=== PATIENT | female | born 1990 | race Caucasian/White ===

== ENCOUNTER 2024-04-14 08:25 | Emergency (ER) | payer OTHER, SELFPAY ==
[2024-04-14 08:27] VITALS: BP 118/88; PULSE 99; RESP 16; TEMP 36.4; O2SAT 100; BMI 38.6
--- OUTSIDE RECORDS SUMMARY | 2024-04-14 08:27 | XMS_ITS | Clinical Summary ---
Author Organization [employer] [facility] Address [place], [place] [address] Care Team Providers Care Second Shift Supervisor Name Role Phone Pcp, No Primary Care Provider Unavailabl e Allergies No known active allergies Medications dextroamphetami ne-amphetamine (ADDERALL XR) 20 mg Extended-Releas e capsule Take 20 mg by mouth Active varenicline (CHANTIX DOSEPAK) 0.5 mg (11)- 1 mg (42) tabletIndicatio ns:Tobacco abuse Days 1-3 take 0.5mg once daily; Days 4-7 take 0.5mg twice daily; then increase to 1mg twice daily. Take with meals. 1 Packet 10/18/2018 Active varenicline (CHANTIX) 1 mg tabletIndicatio ns:Tobacco abuse Take 1 mg by mouth 2 times daily with meals. 112 tablet 10/18/2018 Active sertraline (ZOLOFT) 100 mg tablet Take 200 mg by mouth. 12/28/2021 Active Active Problems Problem Noted Date Diagnosed Date Situational depression 10/16/2017 Obesity, Class II, BMI 35-39.9 10/16/2017 Bicornuate uterus 10/16/2017 Overview (10/16/2017): Overview: Not confirmed Attention-deficit hyperactivity disorder 018 Overview (10/16/2017): Overview: Created by Conversion Insomnia 10/16/2017 Overview (10/16/2017): Overview: Created by Conversion Major depression, recurrent 10/16/2017 Overview (10/16/2017): Overview: Created by Conversion Replacement Utility updated for latest IMO load PCOS (polycystic ovarian syndrome) 12/06/2015 Immunizations Name Administration Dates Next Due DTaP 11/08/1995, 4,05/16/1991,05/13/1990,11/29 HIB PRP-OMP (PedvaxHIB) 05/16/1991,05/13/1990 Hepatitis B (Adult) 10/10/2005,11/05/2002,2002 Hepatitis B, Unspecified 10/10/2005,11/05/2002,0 09/30/2002 Hib Conjugate, Unspecified 05/16/1991,05/13/1990 Inactivated Polio Vaccine 11/08/1995,05/16/1991, 05/13/1990,1989 MMR 11/05/2002,05/16/1991 Td (Age >=7 Years) 09/30/2002 Tdap 09/13/2015,04/03/2012 Tdap, Unspecified 11/08/1995, 4,05/16/1991,05/13/1990,11/29 Family History Medical History Relation Name Comments Obesity Brother Obesity Father Stroke Maternal Grandfather Stroke Maternal Grandmother Cervical cancer Mother Heart attack Mother Other Mother morbid obesity Stroke Mother Congenital heart disease Other Cousin Other Paternal Grandfather rare he art condition (protein grew around heart and squeezed it) Cervical cancer Paternal Grandmother had to have hysterectomy Anxiety disorder Sister Depression Sister Obesity Sister Panic attack Sister Relation Name Status Comments Brother Alive Father Alive Maternal Grandfather Maternal Grandmother Mother Alive Other Cousin Paternal Grandfather Paternal Grandmother Alive Sister Alive Social History Tobacco Use Types Packs/Day Years Used Date Smoking Tobacco: Every Day Cigarettes Smokeless Tobacco: Never Tobacco Cessation:Ready to Q uit: Not Asked; Counseling Given: Not Answered Alcohol Use Standard Drinks/Week Comments Yes 7 (1 standard drink = 0.6 oz pur e alcohol) PHQ-2 Answer Date Recorded PHQ-2 Score 0 10/18/2018 Comments No Sex and Gender Information Value Date Recorded Sex Assigned at Not on file Legal Sex Female 8:15 AM SUPERVISOR COOLER SERVICE Gender Identity Not on file Sexual Orientation Not on file Obstetrics History Para Term AB IAB SAB Ectopic Multiple Livin g Live Births 1 Date Outcome GA Total Labor Labor/2nd/3rd Weight Sex Type Anes PTL Criss A1 A5 Name Clin Last Filed Vital Signs Vital Sign Reading Time Taken Comments Blood Pressure 122/81 03/10/2022 11:08 AM SUPERVISOR COOLER SERVICE Pulse 96 03/10/2022 11:08 AM SUPERVISOR COOLER SERVICE Temperature 36.9 C (98.4 F) 03/10/2022 11:08 AM SUPERVISOR COOLER SERVICE Respiratory Rate 16 05/22/2014 1:03 AM CDT Oxygen Saturation 98% 03/10/2022 11: 08 AM SUPERVISOR COOLER SERVICE Inhaled Oxygen Concentration - - Weight 123.7 kg (272 lb 9.6 oz) 023 11:08 AM SUPERVISOR COOLER SERVICE Height 164 cm (5' 4.57) 10/18/2018 11: 20 AM CDT Body Mass Index 45.97 10/18/2018 11:20 AM CDT Plan of Treatment Health Maintenance Due Date Last Done Comments HIV for age 15-65 2004 Hepatitis C screening for age 18-79 09/12/2007 Pap test for age 21-65 2010 BMI (ht and wt on same day) for age 18+ 10/19/2019 10/18/2018, 10/12/2017 Depression screening for age 12+ 10/19/2019 10/18/2018, 10/12/2017 COVID-19 vaccine series ( season) 2023 09/18/2022, 08/26/2021, 07/22/2020, Additional history exists Influenza for age 9-49 11/04/2023 Tetanus booster 09/12/2025 09/13/2015, 03/07, 09/30/2002, Additional history exists Tdap Completed 09/13/2015, 03/07, 11/08/1995, Additional history exists Pneumococcal series for age 6-49 Aged Out No longer eligible based on patient's age to complete this topic Insurance [employer] Care Teams Second Shift Supervisor Relationship Specialty Start Date End Date Pcp, No . PCP - General 10/08/17
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
--- OUTSIDE RECORDS SUMMARY | 2024-04-14 08:27 | XMS_ITS | Encounter Summary ---
Author Organization [facility] Address [address] [place] [address] Care Team Providers Care Nut Tightener Name Role Phone Claudine Woodard MD Primary Care Provider [phone] Encounter Details Date Type Department Care Team (Late st Contact Info) Description 12/06/2015 Scanned History External to External, [place] [address] [facility] Social History Tobacco Use Types Packs/Day Years Used Date Smoking Tobacco: Never Sex and Gender Information Value Date Recorded Sex Assigned at Female 09/18/2022 2:18 PM CDT Gender Identity Non-binary 09/18/2022 2:18 PM CDT Sexual Orientation Lesbian 09/18/2022 2: 18 PM CDT documented as of this encounter Plan of Treatment Upcoming Encounters Date Type Department Care Team (Late st Contact Info) Description 04/22/2024 4:00 PM BRUSH CLEARING LABORER Telemedicine [facility] [address] [place] [address] Claudine Woodard MD [address] [place] [address] documented as of this encounter Visit Diagnoses Not on filedocumented in this encounter Care Teams Nut Tightener Relationship Specialty Start Date End Date Claudine Woodard MD [address] [place] [id number] PCP - General Family Practice 01/06/19 documented as of this encounter
--- OUTSIDE RECORDS SUMMARY | 2024-04-14 08:27 | XMS_ITS | Encounter Summary ---
Author Organization [facility] Address [address] [place] [address] Care Team Providers Care Drawing Tender Name Role Phone Claudine Woodard MD Primary Care Provider [phone] Encounter Details Date Type Department Care Team (Late st Contact Info) Description 12/08/2015 Correspondence None No Primary/Referring, Phy HME EQUIPMENT PLATE PAINTER TICKET Social History Tobacco Use Types Packs/Day Years [...] st Contact Info) Description 04/22/2024 4:00 PM DRESS MARKER Telemedicine [facility] [address] [address] Claudine Woodard MD [address] [place] [id number] documented as of this encounter Visit Diagnoses Not on filedocumented in this encounter Care Teams Drawing Tender Relationship Specialty Start Date End Date Claudine Woodard MD [address] [place] [address] [id number] PCP - General Family Practice 01/06/19 documented as of this encounter
--- OUTSIDE RECORDS SUMMARY | 2024-04-14 08:28 | XMS_ITS | Encounter Summary ---
Author Organization [facility] Address [address] [place] [address] Care Team Providers Care Powertrain Control Systems Engineer Name Role Phone Claudine Woodard MD Primary Care Provider [phone] Encounter Details Date Type Department Care Team (Late st Contact Info) Description 07/13/2015 Scanned History External to External, [place] [address] [facility] [place] Social History Tobacco Use Types Packs/Day Years Used Date Smoking Tobacco: Never Assessed Sex and Gender Information Value Date Recorded Sex Assigned at Female 09/18/2022 2:18 PM CDT Gender Identity Non-binary 09/18/2022 2:18 PM CDT Sexual Orientation Lesbian 09/18/2022 2: 18 PM CDT documented as of this encounter Plan of Treatment Upcoming Encounters Date Type Department Care Team (Late st Contact Info) Description 04/22/2024 4:00 PM OCCUPATIONAL HYGIENIST Telemedicine [facility] [address] [address] Claudine Woodard MD [address] [place] [id number] documented as of this encounter Visit Diagnoses Not on filedocumented in this encounter Care Teams Powertrain Control Systems Engineer Relationship Specialty Start Date End Date Claudine Woodard MD [address] [place] [id number] PCP - General Family Practice 01/06/19 documented as of this encounter
--- OUTSIDE RECORDS SUMMARY | 2024-04-14 08:28 | XMS_ITS | Clinical Summary ---
Author Organization [place] Address [address] [place] [address]. [place] [address] Care Team Providers Care Retail Area Manager Name Role Phone [facility] Primary Care Provide r Allergies No known active allergies Medications Amphetamine-Dextro amphetamine (ADDERALL PO) Active Active Problems Problem Noted Date Diagnosed Date Obesity Overview (08/17/2020): Created by Conversion Attention deficit hyperactivity disorder (ADHD) Overview (08/17/2020): Created by Conversion Insomnia Overview (08/17/2020): Created by Conversion Limb Pain Overview (08/17/2020): Created by Conversion Major Depression, Recurrent Overview (09/03/2020): Created by Conversion Replacement Utility updated for latest IMO load Immunizations Name Administration Dates Next Due DTaP, Unspecified 11/08/1995, 4,05/16/1991,05/13/1990, HIB, Unspecified 05/16/1991,05/13/1990 HepB, Unspecified 10/10/2005,11/05/2002,10/01/19 03 MMR 11/05/2002,05/16/1991 Poliovirus, inactivated (IPV) 11/08/1995, 992,05/13/1990,1989 TDAP (Adacel,Boostrix) 04/03/2012 Td,adult,historic,unspecified 09/30/2002 Social History Tobacco Use Types Packs/Day Years Used Date Smoking Tobacco: Never Assessed Adolescent Education Answer Date Record ed Getting School Help Needed Not on file 12/17 Comments No Sex and Gender Information Value Date Recorded Sex Assigned at Not on file Legal Sex Female 4:33 AM ELECTRICAL AND RADIO MOCK UP MECHANIC Gender Identity Not on file Sexual Orientation Not on file Last Filed Vital Signs Vital Sign Reading Time Taken Comments Blood Pressure 138/90 08/03/2019 5:59 PM CDT Pulse 108 08/03/2019 5:00 PM CDT Temperature 37.3 C (99.1 F) 08/03/2019 3:09 PM CDT Respiratory Rate 15 08/03/2019 5:59 PM CDT Oxygen Saturation 100% 08/03/2019 5:59 PM CDT Inhaled Oxygen Concentration - - Weight - - Height - - Body Mass Index - - Plan of Treatment Not on file Care Teams Retail Area Manager Relationship Specialty Start Date End Date [facility] [address] [place] [address] PCP - General 08/02/22
--- OUTSIDE RECORDS SUMMARY | 2024-04-14 08:28 | XMS_ITS | Clinical Summary ---
[facility] Address [address] [place] [address] Care Team Providers Care Police Shift Commander Name Role Phone Claudine Woodard MD Primary Care Provider [phone] Source Comments You are receiving this document as you are listed as the primary care provider,follow-up provider, or the patient has been referred to you for consultation.This is in compliance with the Medicare andMedicaid EHR Incentive Program,which states Providers who transition their patient to another setting of careor provider of care or refers their patient to another provider of care shouldprovide summary care record for each transition of care or referral. Transerv Allergies Active Allergy Reactions Criticality Noted Date Comments Escitalopram Other, see comments 02/11/20242004-increased risk for suicide Medications Medication Sig Dispensed Refills Start Date End Date Status testosterone cypionate (DEPO-TESTOSTERON E) 100 MG/ML injection Inject 0.5 mL (50 mg) intramuscularly once every week. 08/19/19 23 Active MONOJECT HYPO 18GX1 18G X 1 USE DIRECTED FOR DRAWING UP MEDICATION ONCE A WEEK 08/18/19 23 Active EASY TOUCH HYPODERMIC NEEDLE 25G X 1-1/2 Inject intramuscularly once every week. 08/29/19 23 Active propranolol (INDERAL) 10 MG tabletIndications :Adjustment disorder with anxiety (HRC) Take 1 Tablet (10 mg) by mouth three times a day as needed. 60 Tablet 3 05/07/19 24 Active amphetamine-dextr oamphetamine XR (ADDERALL XR) 30 MG 24 hour release capsuleIndication s:Attention deficit hyperactivity disorder (ADHD), combined type (HRC) Take 1 Capsule (30 mg) by mouth daily for 30 days. Take with 20 mg for total 50 mg daily. 3 of 3 Do not start before March 01, 2024. 30 Capsule 03/01/20 24 Active metFORMIN XR (GLUCOPHAGE XR) 500 MG 24 hour release tabletIndications :Class 3 severe obesity with serious comorbidity and body mass index (BMI) of 50.0 to 59.9 in adult, unspecified obesity type (HRC),PCOS (polycystic ovarian syndrome) (HRC) TAKE 1 TABLET BY MOUTH X 7 DAYS, THEN 2 TABLETS X 7 DAYS, THEN 3 TABLETS X 7 DAYS, THEN 4 TABLETS DAILY 360 Tablet 02/06/20 24 Active busPIRone (BUSPAR) 5 MG tabletIndications :Depression with anxiety (HRC) Take 1 Tablet (5 mg) by mouth two times a day. 180 Tablet 1 02/11/20 24 Active hydrOXYzine HCl (ATARAX) 25 MG tabletIndications :Adjustment disorder with anxiety (HRC) Take 1-2 Tablets (25-50 mg) by mouth three times a day as needed for Anxiety. 60 Tablet 1 02/13/20 24 Active sertraline (ZOLOFT) 100 MG tabletIndications :Adjustment disorder with anxiety (HRC),Recurrent major depressive disorder, in full remission (HRC) Take 2 Tablets (200 mg) by mouth daily. 180 Tablet 3 02/13/20 24 Active amphetamine-dextr oamphetamine XR (ADDERALL XR) 20 MG 24 hour release capsuleIndication s:Attention deficit hyperactivity disorder (ADHD), combined type (HRC) Take 1 Capsule (20 mg) by mouth daily for 30 days. 1 of 3 30 Capsule 03/24/19 25 025 Active amphetamine-dextr oamphetamine XR (ADDERALL XR) 20 MG 24 hour release capsuleIndication s:Attention deficit hyperactivity disorder (ADHD), combined type (HRC) Take 1 Capsule (20 mg) by mouth daily for 30 days. 2 of 3 Do not start before April 23, 2024. 30 Capsule 04/23/19 25 025 Active amphetamine-dextr oamphetamine XR (ADDERALL XR) 20 MG 24 hour release capsuleIndication s:Attention deficit hyperactivity disorder (ADHD), combined type (HRC) Take 1 Capsule (20 mg) by mouth daily for 30 days. 3 of 3 Do not start before May 23, 2024. 30 Capsule 05/24/19 25 025 Active amphetamine-dextr oamphetamine XR (ADDERALL XR) 30 MG 24 hour release capsuleIndication s:Attention deficit hyperactivity disorder (ADHD), combined type (HRC) Take 1 Capsule (30 mg) by mouth daily for 30 days. 1 of 3 Do not start before March 29, 2024. 30 Capsule 03/29/19 25 025 Active amphetamine-dextr oamphetamine XR (ADDERALL XR) 30 MG 24 hour release capsuleIndication s:Attention deficit hyperactivity disorder (ADHD), combined type (HRC) Take 1 Capsule (30 mg) by mouth daily for 30 days. 2 of 3 Do not start before April 26, 2024. 30 Capsule 04/26/19 25 025 Active amphetamine-dextr oamphetamine XR (ADDERALL XR) 30 MG 24 hour release capsuleIndication s:Attention deficit hyperactivity disorder (ADHD), combined type (HRC) Take 1 Capsule (30 mg) by mouth daily for 30 days. 3 of 3 Do not start before May 26, 2024. 30 Capsule 05/27/19 25 025 Active amphetamine-dextr oamphetamine XR (ADDERALL XR) 30 MG 24 hour release capsuleIndication s:Attention deficit hyperactivity disorder (ADHD), combined type (HRC) Take 1 Capsule (30 mg) by mouth daily for 30 days. Take with 20 mg for total 50 mg daily. 2 of 3 Do not start before January 31, 2024. 30 Capsule 01/31/20 24 025 Discontinued amphetamine-dextr oamphetamine XR (ADDERALL XR) 20 MG 24 hour release capsuleIndication s:Attention deficit hyperactivity disorder (ADHD), combined type (HRC) Take 1 Capsule (20 mg) by mouth daily for 30 days. 2 of 3 Do not start before January 10, 2024. 30 Capsule 01/10/20 24 025 Discontinued amphetamine-dextr oamphetamine XR (ADDERALL XR) 20 MG 24 hour release capsuleIndication s:Attention deficit hyperactivity disorder (ADHD), combined type (HRC) Take 1 Capsule (20 mg) by mouth daily for 30 days. 3 of 3 Do not start before February 09, 2024. 30 Capsule 02/09/20 24 025 Discontinued amphetamine-dextr oamphetamine XR (ADDERALL XR) 30 MG 24 hour release capsuleIndication s:Attention deficit hyperactivity disorder (ADHD), combined type (HRC) Take 1 Capsule (30 mg) by mouth daily for 30 days. Take with 20 mg for total 50 mg daily. 1 of 3 30 Capsule 01/08/20 24 025 Discontinued amphetamine-dextr oamphetamine XR (ADDERALL XR) 30 MG 24 hour release capsule Take 2 Capsules (60 mg) by mouth daily. 60 Capsule 02/08/20 24 025 Discontinued Active Problems Problem Noted Date Diagnosed Date Dysmenorrhea 09/18/2022 Menorrhagia with irregular cycle 09/18/2022 Gender dysphoria in adult 09/18/2022 Hyperlipidemia 12/12/2021 Posttraumatic stress disorder 10/06/2019 Class 3 severe obesity with serious comorbidity and body mass index (BMI) of 40.0 to 44.9 in adult 10/06/2019 Overview (10/06/2019): Created by [employer] nicotine containing substance 03/20/2019 Overview (03/20/2019): Not ready to quit at this time. Controlled substance agreement signed 03/20/2019 Overview (03/24/2024): Diagnosis: ADHD Medication: adderall XR 50 mg daily (takes 30 mg + 20 mg daily for total of 50 mg daily) Controlled Substance Agreement reviewed and signed: yes Date agreement signed: 03/20/2019 Refill plan: visit at least every 6 months-- one visit face to face Clinician: Claudine Woodard MD Updated 09/10/2023 Social anxiety disorder 01/10/2019 Attention deficit hyperactivity disorder (ADHD) 10/16/2017 Overview (02/13/2019): Diagnosed by [facility] at age 18. This is confirmed by review of records from [facility]. See scanned into media Major depression, recurrent 10/16/2017 Overview (01/10/2019): H/o suicide attempts. H/o cutting. Bicornuate uterus 12/06/2015 Overview (01/10/2019): Septate uterus PCOS (polycystic ovarian syndrome) 12/06/2015 Resolved Problems Problem Noted Date Diagnosed Date Resolved Date Cervical high risk HPV (angeline n papillomavirus) test positive 10/20/2019 10/12/2023 Overview (10/12/2023): [facility] Review: History: 2019: NILM HPV+ (non 16/18) 2020: ASCUS, HPV- 2022: NILM, HPV- 2023: NILM, HPV- Plan, per ASCCP guidelines: Repeat co-test in 5 years (09/2028) Nexplanon in place 01/10/2019 Overview (01/10/2019): Placed 10/2017. Encounter for care or examin ation of lactating mother 12/08/2015 01/10/2019 Encounter for supervision of normal first in third trimester 12/06/2015 01/10/2019 Normal labor 12/06/2015 12/08/2015 Encounters Date Type Department Care Team Description 03/24/2024 4:00 PM [facility] Telemedicine [address] [address] [place] [address] Claudine Woodard MD Attention deficit hyperactivity disorder (ADHD), combined type (HRC) (Primary Dx); Class 3 severe obesity with serious comorbidity and body mass index (BMI) of 40.0 to 44.9 in adult, unspecified obesity type (HRC); Moderate episode of recurrent major depressive disorder (HRC); PCOS (polycystic ovarian syndrome) (HRC); Hyperlipidemia, unspecified hyperlipidemia type (HRC); Screening, lipid; Screening for diabetes mellitus 02/11/2024 2:30 PM [facility] Telemedicine [facility] [address] [place] [address] Yesy Lambert, MARISEL, DEYA Depression with anxiety (HRC) (Primary Dx); Adjustment disorder with anxiety (HRC); Recurrent major depressive disorder, in full remission (HRC); Social anxiety disorder (HRC) 02/11/2024 Telephone [facility] [address] [place] [address] Claudine Woodard MD Medication Request 02/07/2024 E-Visit [address] [address] [address] Claudine Woodard MD Dx: Attention deficit hyperactivity disorder (ADHD), combined type ([facility]) 02/03/2024 [address] [address] Claudine Woodard MD Refill (metFORMIN XR (GLUCOPHAGE XR) 500 MG 24 hour release tablet [Pharmacy Med Name: METFORMIN ER 500MG 24HR TABS]) from Last 3 Months Immunizations Name Administration Dates Next Due DTaP 11/08/1995, 4,05/16/1991,1990,1989 HepB Adult (Engerix-B, 20+ y rs, 3 dose series) 10/10/2005,11/05/2002,09/30/2002 HepB, Unspecified Formulation 10/10/2005, 003,09/30/2002 Hib (PedvaxHIB) 05/16/1991,05/13/1990 Hib, Unspecified Formulation 05/16/1991,05/13/18 91 IPV (Polio) 11/08/1995, 2,05/13/1990,1989 Influenza IIV4 (Quadrivalent ) 0.5mL ([id number]) 11/13/2019,01/10/2019 MMR 11/05/2002,05/16/1991 Moderna Bivalent 12+ 09/18/2022 Moderna Monovalent Booster 12+ 08/26/2021 PCV20 (Khsrpvt21) 09/18/2022 PPSV23 (Pneumovax) 01/10/2019 Pfizer Monovalent 12+ Purple Top 07/22/2020,04/2 11/2020 Td 09/30/2002 Td (7+ yrs) 09/30/2002 Tdap 09/13/2015, 3,11/08/1995,1993,05/16/1991,05/13/1990,1989 Family History Medical History Relation Name Comments Other Father was [facility] police chief deputy with issues Depression Mother Cori Olivo Both parents suffer from mental illness/unresolved trauma/C-PTSD Mental Disorder Mother Cori Olivo possibly bipolar Obesity Mother Cori Olivo Renal Failure Mother Cori Olivo of yady al failure Stroke Mother Cori Olivo after hospitalizatoin, had clots in many places endometriosis Mother Cori Olivo No Known Problems Brother Agustin Cerebrovascular Disease Maternal Grandmother Thyroid Disorder Paternal Grandmother DVT/PE Sister Luis Alberto clots in legs. Fibromyalgia Sister Luis Alberto Cancer, Breast Negative Family History Relation Name Status Comments Father Alive Mother Cori Olivo Alive of haley l failure Brother Agustin Alive Maternal Grandmother Paternal Grandmother Sister Luis Alberto Alive Social History Tobacco Use Types Packs/Day [...] Orientation Lesbian 09/18/2022 2: 18 PM CDT Last Filed Vital Signs Vital Sign Reading Time Taken Comments Blood Pressure 111/75 12/11/2023 1:03 PM CDT Pulse 96 12/11/2023 1:03 PM CDT Temperature 37 C (98.6 F) 06/16/2021 9:22 AM CDT Respiratory Rate 16 09/14/2018 10:2 1 AM CDT Oxygen Saturation 99% 09/14/2018 10: 21 AM CDT Inhaled Oxygen Concentration - - Weight 118.7 kg (261 lb 9.6 oz) 12/11/2023 1:03 PM CDT Height 166.4 cm (5' 5.5) 09/10/2023 8:45 AM CDT Body Mass Index 42.87 09/10/2023 8:45 AM CDT Plan of Treatment Upcoming Encounters Date Type Department Care Team (Late st Contact Info) Description 04/22/2024 4:00 PM [facility] Telemedicine [facility] [address] [place] [address] Claudine Woodard MD [address] [id number] Health Maintenance Due Date Last Done Comments COVID-19 Vaccine ( season) 2023 09/18/2022, 08/26/2021, 07/22/2020, Additional history exists Influenza (#1) 2023 11/13/2019, 01/10/2019 Adult Preventive Visit 09/09/2025 4, 09/18/2022, 10/06/2019 DTaP/Tdap/Td (7 - Tdap) 09/12/2025 09/13/19 16, 04/03/2012, 09/30/2002, Additional history exists Cervical Cancer Screening 09/09/20282023, 09/18/2022, 11/02/2020, Additional history exists Zoster/Shingles (1 of 2) 09/12/2039 Hib Completed 05/16/1991, 05/03, 05/13/1990, Additional history exists IPV (Polio) Completed 11/08/1995, 05/03, 05/13/1990, Additional history exists HepB Completed 10/10/2005, 10/2005, 11/05/2002, Additional history exists HIV Screening (Preventive Services) Completed 10/06/2019 Pneumococcal Aged Out 09/18/2022, 01/10/2019 No lo nger eligible based on patient's age to complete this topic Hep C Screening (Preventive Services) Completed 04/05/2023 HPV Vaccine Aged Out No longer eligi ble based on patient's age to complete this topic HepA Aged Out No longer eligi ble based on patient's age to complete this topic MCV4 Aged Out No longer eligi ble based on patient's age to complete this topic Procedures Procedure Name Priority Date/Time Associated Diagnosis Comments PAP TEST Routine 09/10/2023 9:58 AM CDT Screening for malignant neoplasm of cervix HEPATITIS C ANTIBODY, WITH REFLEX Routine 04/05/2023 11:40 AM [facility] Need for hepatitis C screening test HIV 1/2 AG/AB 4TH GEN Routine 10/06/2019 1:53 PM CDT Screening for HIV (human immunodeficiency virus) from Last 3 Months or Most Recently Relevant to Health Maintenance Results * PAP Test (09/10/2023 9:58 AM CDT) Case Report Pap Case: [id number] Authorizing Provider: Claudine Woodard MD Collected: 09/10/2023 0958 Ordering Location: [facility] Received: 09/10/2023 1019 First Screen: SANJUANITA CERON Rescreen: Yocasta Fiore Specimen: Pap Test, Routine, Cervix/Endocervix 10/11/2023 3:54 PM CDT [facility] Pap Specimen Adequacy Satisfactory for evaluation, endocervical/pires sformation zone component present. 10/11/2023 3:54 PM CDT [facility] Pap Interpretation (NILM) Negative for intraepithelial lesion or malignancy. 10/11/2023 3:54 PM CDT [facility] Pap Disclaimer The Pap test is a screening test to aid in the detection of cervical and vaginal cancers and their precursor lesions. It is not a diagnostic procedure and should not be used as the sole means of detecting malignancy. Both false-positive and false-negative results may occur. 10/11/2023 3:54 PM CDT [facility] Gross Description The specimen is received in SurePath fixative and properly labeled. 1 Pap-stained SurePath slide is prepared. 10/11/2023 3:54 PM CDT [facility] Embedded Images 3:54 PM CDT [facility] Other Specimen Type ENTIRE ENDOCERVIX / Unknown 09/10/2023 9:58 AM CDT 09/10/2023 10:19 AM CDT Comment:LMP: No LMP recorded . (Menstrual status: Irregular). Claudine Woodard MD LAB PATHOLOGY Performing Organization Address [facility] de Phone Number [facility] [address] [place] [address] * Hepatitis C Antibody, with Reflex (04/05/2023 11:40 AM [facility]) Hepatitis C Antibody Negative (Non Reactive) Negative (Non Reactive) 04/05/2023 4:38 PM [facility] Comment:Antibodies to HCV no t detected. Does not exclude the possiblity of exposure to HCV. Blood Venipuncture / Unknown 04/05/2023 11:40 AM [facility] 04/05/2023 11:40 AM [facility] Claudine Woodard MD LAB_1 Performing Organization Address [facility] Phone Number [facility] [address] [place] [address] * HIV 1/2 Ag/Ab 4th Generation (10/06/2019 1:53 PM CDT) HIV 1/2 Antigen/Antib analy (4th generation) Negative (Non Reactive) Negative (Non Reactive) 10/06/2019 6:36 PM CDT [facility] Comment:HIV-1 p24 Antigen an d HIV-1/HIV-2 Antibody not detected Blood Venipuncture / Unknown 10/06/2019 1:53 PM CDT 10/06/2019 1:53 PM CDT Claudine Woodard MD LAB_1 Performing Organization Address [facility] de Phone Number [facility] [address] [place] [address] from Last 3 Months or Most Recently Relevant to Health Maintenance Advance Directives * Full Code (Latest Code Status on File) Date Activated Date Inactivated Comments 12/06/2015 8:35 AM 12/08/2015 4:52 PM Care Teams Police Shift Commander Relationship Specialty Start Date End Date Claudine Woodard MD [address] [place] [address] PCP - General Family Practice 01/06/19
--- NOTE | 2024-04-14 09:25 | CRLHL7_ITS ---
For Patients: As a result of the Century Cures Act, medical imaging exams and procedure reports are released immediately into your electronic medical record. You may view this report before your referring provider. If you have questions, please contact your health care provider. INDICATION: Varicose veins. TECHNIQUE: Ultrasound venous duplex bilateral lower extremity. Compression venous exam was performed using oneal-scale, color Doppler, and spectral Doppler analysis. COMPARISON: None available. FINDINGS: Deep veins: Sonographic imaging demonstrates the bilateral common femoral, deep femoral, superficial femoral, popliteal, posterior tibial and peroneal veins to be fully compressible with normal color Doppler blood flow. Superficial veins: Visualized portions of the greater saphenous veins are fully compressible. Bilateral calf varicosities are present, without filling defect. IMPRESSION: No evidence of left lower extremity deep venous thrombosis. Bilateral calf venous varicosities without superficial thrombophlebitis. Dictated by Janel Bunn MD @ 04/14/2024 10:20:04 AM (Electronically Signed)
--- NOTE | 2024-04-14 09:26 | ED.GENADULT ---
HPI - General Adult General Chief complaint: Anxiety Stated complaint: blood clot concerns Time Seen by Provider: 04/14/24 09:16 Mode of arrival: wheelchair History of Present Illness HPI narrative: This 33-year-old female comes in reporting bilateral lower extremity pain in her calf region. She does not report any injury event but does states that she has varicose veins. She does not report any chest pain or shortness of breath and arrives here with normal vital signs. She states that she does have anxiety about her health. Related Data Home Medications ?Medication ?Instructions ?Recorded ?Confirmed dextroamphetamine-amphetamine ER 1 cap PO DAILY 05/12/23 04/14/24 30 mg 24hr capsule,extend release metformin 500 mg tablet,extended 2,000 mg PO QDAY 05/12/23 04/14/24 release 24 hr sertraline 100 mg tablet 150 mg PO 05/12/23 05/12/23 Allergies Allergy/AdvReac Type Severity Reaction Status Date / Time No Known Drug Allergies Allergy Verified 05/12/23 09:47 Review of Systems Status of ROS: Reports: 10 or more systems reviewed and unremarkable except as noted in History and below Narrative: Constitutional: No fevers, no weight gain or loss. Eyes: No discharge. No vision changes. HENT: No congestion, no sore throat, no ear pain. Cardiovascular: No chest pain, no palpitations. Respiratory: No shortness of breath, no wheezes, no cough. Gastrointestinal: No abdominal pain, no vomiting, no diarrhea. Genitourinary: No dysuria, no hematuria. Musculoskeletal: Normal range of motion. Bilateral lower extremity pain from varicose veins. Skin: No rashes, no pruritis. Neurological: No dizziness, weakness, sensory change, speech change. Endo/Heme/Allergies: No bruising or bleeding. No polydipsia. Pysch: no suicidality, no insomnia. She reports anxiety symptoms. All other systems reviewed and are negative. Exam Narrative: Exam Narrative: Constitutional: Well-developed, well-nourished, no acute distress. HEENT: Normocephalic, atraumatic. Neck: Normal range of motion. Nontender. Supple. Heart: Regular. No murmurs. Normal rate. Intact distal pulses. Lungs: Clear to auscultation. No chest discomfort. No wheezes, rhonchi, or rales. Abdomen: Normal bowel sounds. Nontender. No rebound tenderness. Genitalia: Deferred. Back: No midline tenderness. Normal range of motion. Extremities: Normal range of motion. No injury. No unilateral swelling of lower extremities. Varicose veins are present but do not appear discolored. Skin: Intact. No rash. Warm. No erythema or pallor. Neurologic: No altered sensation. No weakness. Alert and oriented. Psychiatric: No suicidality. Nursing notes and vitals signs are reviewed. Const: Vital Signs, click to edit/add: Vital Signs - 24 hr 04/14/24 08:27 Temperature 97.6 F Pulse Rate [Pulse Oximeter] 99 Respiratory Rate 16 Blood Pressure [Ri t Upper Arm] 118/88 Pulse Oximetry 100 Oxygen Delivery Me thod Room Air Course Vital Signs Vital signs: Initial Vital Signs Temperature 97.6 F 04/14/24 08:27 Temperature Source Temporal Artery Scan 04/14/24 08:27 Pulse Rate 99 04/14/24 08:27 Respiratory Rate 16 04/14/24 08:27 Blood Pressure 118/88 04/14/24 08:27 Blood Pressure Mean 98 04/14/24 08:27 Blood Pressure Position Sitting 04/14/24 08:27 Pulse Oximetry 100 04/14/24 08:27 Oxygen Delivery Method Room Air 04/14/24 08:27 Vital Signs Temperature 97.6 F 04/14/24 08:27 Pulse Rate 99 04/14/24 08:27 Respiratory Rate 16 04/14/24 08:27 Blood Pressure 118/88 04/14/24 08:27 Pulse Oximetry 100 04/14/24 08:27 Oxygen Delivery Method Room Air 04/14/24 08:27 Temperature 97.6 F 04/14/24 08:27 Pulse Rate 99 04/14/24 08:27 Respiratory Rate 16 04/14/24 08:27 Blood Pressure 118/88 04/14/24 08:27 Pulse Oximetry 100 04/14/24 08:27 Oxygen Delivery Method Room Air 04/14/24 08:27 Medical Decision Making MDM Narrative Medical decision making narrative: This patient comes in with anxiety and concern about pain in her lower extremities related to varicose veins. She is also requesting labs to be drawn because she is concerned about her health. She does arrive here with normal vital signs. Lab results returned with normal findings as does ultrasound of both lower extremities. There is no evidence of blood clot in either the superficial or the deep veins. I advised her to follow-up with surgery clinic if desiring to have varicose veins addressed. Lab Data Labs: Lab Results 04/14/24 Range/Units 09:38 WBC 6.14 (4.50-11.00) K/uL RBC 4.70 (4.00-5.20) m/uL Hgb 14.2 (12.0-16.0) gm/dL Hct 43.4 (33.0-51.0) % MCV 92 (80-100) fL MCH 30 (26-34) pg MCHC 33 (32-36) gm/dL RDW Coeff of Renetta 12.4 (11.5-15.5) % Plt Count 287 (140-440) K/uL Neut % (Auto) 64.8 (42.0-72.0) % Lymph % (Auto) 25.2 (20-44) % Mercer % (Auto) 7.5 (0.0-11.0) % Eos % (Auto) 1.5 (0.0-7.0) % Baso % (Auto) 0.8 (0.0-3.0) % Neut # (Auto) 3.98 (1.7-7.0) K/uL Lymph # (Auto) 1.55 (0.90-2.90) K/uL Mercer # (Auto) 0.50 (0.00-0.90) K/UL Eos # (Auto) 0.09 (0.00-0.50) K/uL Baso # (Auto) 0.05 (0.00-0.30) K/uL Abs Immat Gran (auto) 0.01 (0.00-0.30) K/uL Imm/Tot Granulo (auto) 0.2 % Sodium 140 (135-149) mmol/L Potassium 3.8 (3.6-5.1) mmol/L Chloride 106 (96-114) mmol/L Carbon Dioxide 25 (20-32) mmol/L Anion Gap 9 (7-15) mEq/L BUN 8 (5-24) mg/dL Creatinine 0.6 (0.5-1.5) mg/dL Estimated Creat Clear 114.09 Estimated GFR 121 ml/min Glucose 97 (60-115) mg/dL Calcium 9.4 (8.4-10.6) mg/dL Imaging Data Venous US: Radiologist's impression: No evidence of left lower extremity deep venous thrombosis. Bilateral calf venous varicosities without superficial thrombophlebitis. Discharge Plan Discharge Clinical Impression: Varicose veins of both lower extremities Patient Disposition: Home, Self-Care Condition: Stable Additional Instructions: Use [id number] medicines as needed and directed. Follow up with a clinic to attend to varicose veins if desired. Prescriptions: No Action dextroamphetamine-amphetamine 30 mg capsule,extended release 24hr 1 cap PO DAILY metformin 500 mg tablet extended release 24 hr 2,000 mg PO QDAY sertraline 100 mg tablet 150 mg PO Follow Up/Referrals: Gabriella Mobley PA-C [Primary Care Provider] - Stand Alone Forms: MyHealth Info Instructions
[2024-04-14 09:58] LABS: Basophils Absolute Auto 0.05 K/uL (0.00-0.30); Basophils Percent Auto 0.8 % (0.0-3.0); Eosinophils Absolute Auto 0.09 K/uL (0.00-0.50); Eosinophils Percent Auto 1.5 % (0.0-7.0); Hematocrit 43.4 % (33.0-51.0); Hemoglobin* 14.2 gm/dL (12.0-16.0); Immature Granulocytes Abs Auto 0.01 K/uL (0.00-0.30); Immature Granulocytes Pct Auto 0.2 %; Lymphocytes Absolute Auto 1.55 K/uL (0.90-2.90); Lymphocytes Percent Auto 25.2 % (20-44); Mean Corpuscular HGB Conc 33 gm/dL (32-36); Mean Corpuscular Hemoglobin 30 pg (26-34); Mean Corpuscular Volume 92 fL (80-100); Monocytes Percent Auto 7.5 % (0.0-11.0); Neutrophils Absolute Auto 3.98 K/uL (1.7-7.0); Neutrophils Percent Auto 64.8 % (42.0-72.0); Platelet Count* 287 K/uL (140-440); RDW Coefficient of Variation % 12.4 % (11.5-15.5); White Blood Count* 6.14 K/uL (4.50-11.00)
[2024-04-14 10:05] LABS: Chloride* 106 mmol/L (96-114); Potassium* 3.8 mmol/L (3.6-5.1); Sodium* 140 mmol/L (135-149)
[2024-04-14 10:08] LABS: Anion Gap 9 mEq/L (7-15); Blood Urea Nitrogen* 8 mg/dL (5-24); Calcium* 9.4 mg/dL (8.4-10.6); Carbon Dioxide* 25 mmol/L (20-32); Creatinine* 0.6 mg/dL (0.5-1.5); Est. Creatinine Clearance* 114.09; Estimated Glomerular Filt Rate 121 ml/min; Glucose* 97 mg/dL (60-115)
[2024-04-14 10:15] LABS: Slide Review Reflex No
--- OUTSIDE RECORDS SUMMARY | 2024-04-14 10:15 | XMS_ITS | Encounter Summary ---
Author Organization [facility] Address [address] [place] [address] Care Team Providers Care Out And Out Cigar Maker Hand Name Role Phone Claudine Woodard MD Primary Care Provider [phone] Encounter Details Date Type Department Care Team (Late st Contact Info) Description 07/13/2015 Scanned History External to External, [place] [address] [facility] NOT[facility] Social History Tobacco Use Types Packs/Day [...] st Contact Info) Description 04/22/2024 4:00 PM RESEARCH HYDRAULIC ENGINEER Telemedicine [facility] [address] [address] Claudine Woodard MD [address] [place] [address] documented as of this encounter Visit Diagnoses Not on filedocumented in this encounter Care Teams Out And Out Cigar Maker Hand Relationship Specialty Start Date End Date Claudine Woodard MD [address] [place] [address] PCP - General Family Practice 01/06/19 documented as of this encounter
--- OUTSIDE RECORDS SUMMARY | 2024-04-14 10:15 | XMS_ITS | Clinical Summary ---
Author Organization [facility] Address [address] [place] [address] Care Team Providers Care Party Plan Sales Unit Advisor Name Role Phone Claudine Woodard MD Primary Care Provider [phone] Source Comments You are receiving this document [...] for each transition of care or referral. [employer] Allergies Active Allergy Reactions Criticality Noted Date [...] papillomavirus) test positive 10/20/2019 10/12/2023 Overview (10/12/2023): [facility] Review: History: 2019: NILM HPV+ (non 16/18) [...] Department Care Team Description 03/24/2024 4:00 PM ELECTRON TUBE ASSEMBLER Telemedicine [place] [address] [place] [address] Claudine Woodard MD Attention deficit hyperactivity disorder (ADHD), combined type (HRC) (Primary Dx); Class 3 severe obesity with serious comorbidity and body mass index (BMI) of 40.0 to 44.9 in adult, unspecified obesity type (HRC); Moderate episode of recurrent major depressive disorder (HRC); PCOS (polycystic ovarian syndrome) (HRC); Hyperlipidemia, unspecified hyperlipidemia type (HRC); Screening, lipid; Screening for diabetes mellitus 02/11/2024 2:30 PM ELECTRON TUBE ASSEMBLER Telemedicine [facility] [address] [place] [address] Yesy Lambert, MARISEL, DEYA Depression with anxiety (HRC) (Primary Dx); Adjustment disorder with anxiety (HRC); Recurrent major depressive disorder, in full remission (HRC); Social anxiety disorder (HRC) 02/11/2024 Telephone [facility] [address] [address] Claudine Woodard MD Medication Request 02/07/2024 E-Visit [place] [address] [place] [address] Claudine Woodard MD Dx: Attention deficit hyperactivity disorder (ADHD), combined type ([facility]) 02/03/2024 [address] [address] Claudine Woodard MD Refill (metFORMIN XR (GLUCOPHAGE [...] 11/08/1995, 2,05/13/1990,1989 Influenza IIV4 (Quadrivalent ) 0.5mL (03239) 11/13/2019,01/10/2019 MMR 11/05/2002,05/16/1991 Moderna Bivalent 12+ 09/18/2022 Moderna Monovalent Booster 12+ 08/26/2021 PCV20 ([id number]) 09/18/2022 PPSV23 (Pneumovax) 01/10/2019 Pfizer Monovalent 12+ Purple Top 07/22/2020,04/2 11/2020 Td 09/30/2002 Td (7+ yrs) 09/30/2002 Tdap 09/13/2015, 3,11/08/1995,1993,05/16/1991,05/13/1990,1989 Family History Medical History Relation Name Comments Other Father was [employer] environmental officer with issues Depression Mother Cori Olivo Both [...] Relation Name Status Comments Father Alive Mother Coir Olivo Alive of haley l failure Brother [...] st Contact Info) Description 04/22/2024 4:00 PM ELECTRON TUBE ASSEMBLER Telemedicine [facility] [address] [place] [address] Claudine Woodard MD [address] [place] [phone] Health Maintenance Due Date Last Done Comments [...] ANTIBODY, WITH REFLEX Routine 04/05/2023 11:40 AM ELECTRON TUBE ASSEMBLER Need for hepatitis C screening test HIV 1/2 AG/AB 4TH GEN Routine 10/06/2019 1:53 PM CDT Screening for HIV (human immunodeficiency virus) from Last 3 Months or Most Recently Relevant to Health Maintenance Results * PAP Test (09/10/2023 9:58 AM CDT) Case Report Pap Case: [id number] Authorizing Provider: Claudine Woodard MD Collected: 09/10/2023 0958 Ordering Location: [facility] Received: 09/10/2023 1019 First Screen: SANJUANITA CERON Rescreen: Yocasta Fiore Specimen: Pap Test, Routine, Cervix/Endocervix 10/11/2023 3:54 PM CDT [facility] Pap Specimen Adequacy Satisfactory for evaluation, endocervical/pires sformation zone component present. 10/11/2023 3:54 PM CDT [facility] Pap Interpretation (NILM) Negative for intraepithelial lesion or malignancy. 10/11/2023 3:54 PM CDT [facility] Pap Disclaimer The Pap test is a screening test to aid in the detection of cervical and vaginal cancers and their precursor lesions. It is not a diagnostic procedure and should not be used as the sole means of detecting malignancy. Both false-positive and false-negative results may occur. 10/11/2023 3:54 PM CDT [facility] Gross Description The specimen is received in SurePath fixative and properly labeled. 1 Pap-stained SurePath slide is prepared. 10/11/2023 3:54 PM CDT [facility] Embedded Images 3:54 PM CDT [facility] Other Specimen Type ENTIRE ENDOCERVIX / Unknown 09/10/2023 9:58 AM CDT 09/10/2023 10:19 AM CDT Comment:LMP: No LMP recorded . (Menstrual status: Irregular). Claudine Woodard MD LAB PATHOLOGY Performing Organization Address [facility] de Phone Number [facility] [address] [place] [address] * Hepatitis C Antibody, with Reflex (04/05/2023 11:40 AM ELECTRON TUBE ASSEMBLER) Hepatitis C Antibody Negative (Non Reactive) Negative (Non Reactive) 04/05/2023 4:38 PM ELECTRON TUBE ASSEMBLER [facility] Comment:Antibodies to HCV no t detected. Does not exclude the possiblity of exposure to HCV. Blood Venipuncture / Unknown 04/05/2023 11:40 AM ELECTRON TUBE ASSEMBLER 04/05/2023 11:40 AM ELECTRON TUBE ASSEMBLER Claudine Woodard MD LAB_1 Performing Organization Address [facility] Phone Number [facility] [address] [place] [address] * HIV 1/2 Ag/Ab 4th Generation (10/06/2019 1:53 PM CDT) HIV 1/2 Antigen/Antib analy (4th generation) Negative (Non Reactive) Negative (Non Reactive) 10/06/2019 6:36 PM CDT [facility] Comment:HIV-1 p24 Antigen an d HIV-1/HIV-2 Antibody not detected Blood Venipuncture / Unknown 10/06/2019 1:53 PM CDT 10/06/2019 1:53 PM CDT Claudine Woodard MD LAB_1 Performing Organization Address [facility] de Phone Number [facility] [address] [place] [address] from Last 3 Months or Most Recently Relevant to Health Maintenance Advance Directives * Full Code (Latest Code Status on File) Date Activated Date Inactivated Comments 12/06/2015 8:35 AM 12/08/2015 4:52 PM Care Teams Party Plan Sales Unit Advisor Relationship Specialty Start Date End Date Claudine Woodard MD [address] [place] [address] PCP - General Family Practice 01/06/19
--- OUTSIDE RECORDS SUMMARY | 2024-04-14 10:15 | XMS_ITS | Encounter Summary ---
Author Organization [facility] Address [address] [place] [address] Care Team Providers Care Manager Room Name Role Phone Claudine Woodard MD Primary Care Provider [phone] Reason for Visit * Reason Comments Follow-up ADHD, weight, mental health Encounter Details Date Type Department Care Team (Late st Contact Info) Description 03/24/2024 4:00 PM AUTOMATIC CHIEF Telemedicine [facility] [address] [place] [address] [address] [place] [phone] Claudine Woodard MD [address] [place] [address] [place] [phone] Attention deficit hyperactivity disorder (ADHD), combined type [...] Claudine Woodard MD - 03/24/2024 4:00 PM AUTOMATIC CHIEF Decrease buspirone 5 mg to half tab twice daily for 1 week, then stop. Wait 2 weeks after buspirone (make sure you feel ok), then decrease sertraline from 150 mg daily to100 mg daily. If symptoms are worsening, increase back to 150 mg daily. MATIC CHIEF documented in this encounter Progress Notes * [...] Location of patient: other in parked vehicle MATIC CHIEF documented in this encounter Plan of Treatment Upcoming Encounters Date Type Department Care Team (Late st Contact Info) Description 04/22/2024 4:00 PM AUTOMATIC CHIEF Telemedicine [facility] [address] [place] [address] [address] [place] [phone] Claudien Woodard MD [facility] [address] [place] [phone] Scheduled Orders Name Type Priority Associated Diagnoses [...] mellitus documented in this encounter Care Teams Manager Room Relationship Specialty Start Date End Date Claudine Woodard MD [address] [place] [address] PCP - General Family Practice 01/06/19 documented as of this encounter
--- OUTSIDE RECORDS SUMMARY | 2024-04-14 10:15 | XMS_ITS | Encounter Summary ---
Author Organization [facility] Address [address] [place] [address] Care Team Providers Care Manager Environmental Name Role Phone Claudine Woodard MD Primary Care Provider [phone] Encounter Details Date Type Department Care Team (Late st Contact Info) Description 12/08/2015 Correspondence None No Primary/Referring, Phy HME EQUIPMENT MAP PLOTTER TICKET Social History Tobacco Use Types Packs/Day [...] st Contact Info) Description 04/22/2024 4:00 PM TRANSIT MAN Telemedicine [facility] [address] [address] Claudine Woodard MD [address] [place] [address] documented as of this encounter Visit Diagnoses Not on filedocumented in this encounter Care Teams Manager Environmental Relationship Specialty Start Date End Date Claudine Woodard MD [address] [place] [address] PCP - General Family Practice 01/06/19 documented as of this encounter
--- OUTSIDE RECORDS SUMMARY | 2024-04-14 10:15 | XMS_ITS | Encounter Summary ---
Author Organization [facility] Address [address] [place] [address] Care Team Providers Care Nursery Helper Name Role Phone Claudine Woodard MD Primary Care Provider [phone] Encounter Details Date Type Department Care Team (Late st Contact Info) Description 12/06/2015 Scanned History External to External, [place] [address] [facility] Social History Tobacco Use Types [...] st Contact Info) Description 04/22/2024 4:00 PM SENIOR NET C DEVELOPER Telemedicine [facility] [address] [address] Claudine Woodard MD [address] [place] [address] documented as of this encounter Visit Diagnoses Not on filedocumented in this encounter Care Teams Nursery Helper Relationship Specialty Start Date End Date Claudine Woodard MD [address] [place] [address] [address] PCP - General Family Practice 01/06/19 documented as of this encounter
--- OUTSIDE RECORDS SUMMARY | 2024-04-14 10:15 | XMS_ITS | Clinical Summary ---
Author Organization [facility] [place], [place] [address] Care Team Providers Care Census Clerk Name Role Phone Pcp, No Primary Care [...] on file Legal Sex Female 8:15 AM BRICK SETTER OPERATOR Gender Identity Not on file Sexual Orientation Not on file Obstetrics History Para Term AB IAB SAB Ectopic Multiple Livin g Live Births 1 Date Outcome GA Total Labor Labor/2nd/3rd Weight Sex Type Anes PTL Criss A1 A5 Name Clin Last Filed Vital Signs Vital Sign Reading Time Taken Comments Blood Pressure 122/81 03/10/2022 11:08 AM BRICK SETTER OPERATOR Pulse 96 03/10/2022 11:08 AM BRICK SETTER OPERATOR Temperature 36.9 C (98.4 F) 03/10/2022 11:08 AM BRICK SETTER OPERATOR Respiratory Rate 16 05/22/2014 1:03 AM CDT Oxygen Saturation 98% 03/10/2022 11: 08 AM BRICK SETTER OPERATOR Inhaled Oxygen Concentration - - Weight 123.7 kg (272 lb 9.6 oz) 023 11:08 AM BRICK SETTER OPERATOR Height 164 cm (5' 4.57) 10/18/2018 11: [...] topic Insurance [employer] Care Teams Census Clerk Relationship Specialty Start Date End Date Pcp, No . PCP - General 10/08/17
[2024-04-14 10:42] VITALS: BP 118/88; PULSE 99; RESP 16; TEMP 36.4
== END 2024-04-14 10:43 | disposition home or self-care (01) ==
PROVIDERS: Emergency Provider Emergency Medicine Emergency Medical Services; PCP Physician Assistant Medical
DX: I83.813 Varicose veins of bilateral lower extremities with pain (principal)
CPT/HCPCS: 36415; 80048; 85025; 93970; 99284

== ENCOUNTER 2024-05-03 16:06 | Emergency (ER) | payer SELFPAY ==
--- OUTSIDE RECORDS SUMMARY | 2024-05-03 16:09 | XMS_ITS | Encounter Summary ---
Author Organization [facility] Address [address] [place] [address] Care Team Providers Care Parachute Packer Name Role Phone Claudine Woodard MD Primary Care Provider [phone] Encounter Details Date Type Department Care Team (Late st Contact Info) Description 12/08/2015 Correspondence None No Primary/Referring, Phy HME EQUIPMENT ETHYLENE OXIDE PANELBOARD OPERATOR TICKET Social History Tobacco Use Types Packs/Day Years Used Date Smoking Tobacco: Never Comments No Sex and Gender Information Value Date Recorded Sex Assigned at Female 09/18/2022 2:18 PM CDT Legal Sex Female 4:58 AM CDT Gender Identity Non-binary 09/18/2022 2:18 PM CDT Sexual Orientation Lesbian 09/18/2022 2: 18 PM CDT documented as of this encounter Plan of Treatment Not on file documented as of this encounter Visit Diagnoses Not on filedocumented in this encounter Care Teams Parachute Packer Relationship Specialty Start Date End Date Claudine Woodard MD [facility] [place] [address] PCP - General Family Practice 01/06/19 documented as of this encounter
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
--- OUTSIDE RECORDS SUMMARY | 2024-05-03 16:09 | XMS_ITS | Encounter Summary ---
Author Organization [facility] Address [address] [place] [address] Care Team Providers Care Anthropologist Name Role Phone Claudine Woodard MD Primary Care Provider [phone] Reason for Visit * Reason Comments Follow-up ADHD, weight, mental health Encounter Details Date Type Department Care Team (Late st Contact Info) Description 03/24/2024 4:00 PM TRIPE FINISHER Telemedicine [facility] [address] [place] [address] [address] [place] [phone] Claudine Woodard MD [address] [place] [address] [place] [phone] Attention deficit hyperactivity disorder (ADHD), combined type [...] on file documented as of this encounter Patient Instructions * Patient Instructions* Claudine Woodard MD - 03/24/2024 4:00 PM TRIPE FINISHER Decrease buspirone 5 mg to half tab twice daily for 1 week, then stop. Wait 2 weeks after buspirone (make sure you feel ok), then decrease sertraline from 150 mg daily to100 mg daily. If symptoms are worsening, increase back to 150 mg daily. E FINISHER E FINISHER documented in this encounter Progress Notes * [...] Location of patient: other in parked vehicle E FINISHER documented in this encounter Plan of Treatment Scheduled Orders Name Type Priority Associated Diagnoses [...] mellitus documented in this encounter Care Teams Anthropologist Relationship Specialty Start Date End Date Claudine Woodard MD [address] [place] [address] PCP - General Family Practice 01/06/19 documented as of this encounter
--- OUTSIDE RECORDS SUMMARY | 2024-05-03 16:10 | XMS_ITS | Clinical Summary ---
Author Organization [facility] Address [address] [place] [address]. [place] [address] Care Team Providers Care Second Baker Name Role Phone [facility], [facility] Primary [...] on file Legal Sex Female 4:33 AM ORACLE ENGINEER Gender Identity Not on file Sexual Orientation [...] of Treatment Not on file Care Teams Second Baker Relationship Specialty Start Date End Date [facility], [facility] [address] [address] PCP - General 08/02/22
--- OUTSIDE RECORDS SUMMARY | 2024-05-03 16:10 | XMS_ITS | Clinical Summary ---
Author Organization [facility] Address [address] [place] [address] Care Team Providers Care Terrazzo Finisher Helper Name Role Phone Pcp, No Primary Care [...] on file Legal Sex Female 8:15 AM REGISTERED NURSE BONE MARROW TRANSPLANT Gender Identity Not on file Sexual Orientation Not on file Obstetrics History Para Term AB IAB SAB Ectopic Multiple Livin g Live Births 1 Date Outcome GA Total Labor Labor/2nd/3rd Weight Sex Type Anes PTL Criss A1 A5 Name Clin Last Filed Vital Signs Vital Sign Reading Time Taken Comments Blood Pressure 122/81 03/10/2022 11:08 AM REGISTERED NURSE BONE MARROW TRANSPLANT Pulse 96 03/10/2022 11:08 AM REGISTERED NURSE BONE MARROW TRANSPLANT Temperature 36.9 C (98.4 F) 03/10/2022 11:08 AM REGISTERED NURSE BONE MARROW TRANSPLANT Respiratory Rate 16 05/22/2014 1:03 AM CDT Oxygen Saturation 98% 03/10/2022 11: 08 AM REGISTERED NURSE BONE MARROW TRANSPLANT Inhaled Oxygen Concentration - - Weight 123.7 kg (272 lb 9.6 oz) 023 11:08 AM REGISTERED NURSE BONE MARROW TRANSPLANT Height 164 cm (5' 4.57) 10/18/2018 11: [...] patient's age to complete this topic Insurance [employer] Care Teams Terrazzo Finisher Helper Relationship Specialty Start Date End Date Pcp, No . PCP - General 10/08/17
--- OUTSIDE RECORDS SUMMARY | 2024-05-03 16:10 | XMS_ITS | Clinical Summary ---
[facility] Organization [facility] Address [address] [place] [address] Care Team Providers Care Nut Cracker Name Role Phone Claudine Woodard MD Primary Care Provider [phone] Source Comments You are receiving this document [...] for each transition of care or referral. [facility] Allergies Active Allergy Reactions Criticality Noted Date Comments Escitalopram Other, see comments 02/11/20242004-increased risk for suicide Medications testosterone cypionate (DEPO-TESTOSTER ONE) 100 MG/ML injection Inject 0.5 mL (50 mg) intramuscularly once every week. 023 Active MONOJECT HYPO 18GX1 18G X 1 USE DIRECTED FOR DRAWING UP MEDICATION ONCE A WEEK 023 Active EASY TOUCH HYPODERMIC NEEDLE 25G X 1-/2 Inject intramuscularly once every week. 023 Active propranolol (INDERAL) 10 MG tabletIndicatio ns:Adjustment disorder with anxiety (HRC) Take 1 Tablet (10 mg) by mouth three times a day as needed. 60 Tablet 3 024 Active amphetamine-dex troamphetamine XR (ADDERALL XR) 30 MG 24 hour release capsuleIndicati ons:Attention deficit hyperactivity disorder (ADHD), combined type (HRC) Take 1 Capsule (30 mg) by mouth daily for 30 days. Take with 20 mg for total 50 mg daily. 3 of 3 Do not start before March 01, 2024. 30 Capsule 024 Active metFORMIN XR (GLUCOPHAGE XR) 500 MG 24 hour release tabletIndicatio ns:Class 3 severe obesity with serious comorbidity and body mass index (BMI) of 50.0 to 59.9 in adult, unspecified obesity type (HRC),PCOS (polycystic ovarian syndrome) (HRC) TAKE 1 TABLET BY MOUTH X 7 DAYS, THEN 2 TABLETS X 7 DAYS, THEN 3 TABLETS X 7 DAYS, THEN 4 TABLETS DAILY 360 Tablet 024 Active hydrOXYzine HCl (ATARAX) 25 MG tabletIndicatio ns:Adjustment disorder with anxiety (HRC) Take 1-2 Tablets (25-50 mg) by mouth three times a day as needed for Anxiety. 60 Tablet 1 024 Active amphetamine-dex troamphetamine XR (ADDERALL XR) 20 MG 24 hour release capsuleIndicati ons:Attention deficit hyperactivity disorder (ADHD), combined type (HRC) Take 1 Capsule (20 mg) by mouth daily for 30 days. 1 of 3 30 Capsule 025 Active amphetamine-dex troamphetamine XR (ADDERALL XR) 20 MG 24 hour release capsuleIndicati ons:Attention deficit hyperactivity disorder (ADHD), combined type (HRC) Take 1 Capsule (20 mg) by mouth daily for 30 days. 2 of 3 Do not start before April 23, 2024. 30 Capsule 025 2024 Active amphetamine-dex troamphetamine XR (ADDERALL XR) 20 MG 24 hour release capsuleIndicati ons:Attention deficit hyperactivity disorder (ADHD), combined type (HRC) Take 1 Capsule (20 mg) by mouth daily for 30 days. 3 of 3 Do not start before May 23, 2024. 30 Capsule 025 2024 Active amphetamine-dex troamphetamine XR (ADDERALL XR) 30 MG 24 hour release capsuleIndicati ons:Attention deficit hyperactivity disorder (ADHD), combined type (HRC) Take 1 Capsule (30 mg) by mouth daily for 30 days. 1 of 3 Do not start before March 29, 2024. 30 Capsule 025 Active amphetamine-dex troamphetamine XR (ADDERALL XR) 30 MG 24 hour release capsuleIndicati ons:Attention deficit hyperactivity disorder (ADHD), combined type (HRC) Take 1 Capsule (30 mg) by mouth daily for 30 days. 2 of 3 Do not start before April 26, 2024. 30 Capsule 025 2024 Active amphetamine-dex troamphetamine XR (ADDERALL XR) 30 MG 24 hour release capsuleIndicati ons:Attention deficit hyperactivity disorder (ADHD), combined type (HRC) Take 1 Capsule (30 mg) by mouth daily for 30 days. 3 of 3 Do not start before May 26, 2024. 30 Capsule 025 2024 Active sertraline (ZOLOFT) 100 MG tabletIndicatio ns:Moderate episode of recurrent major depressive disorder (HRC),Adjustmen t disorder with anxiety (HRC) Take 1 Tablet (100 mg) by mouth daily. 90 Tablet 3 025 Active busPIRone (BUSPAR) 5 MG tabletIndicatio ns:Depression with anxiety (HRC) Take 1 Tablet (5 mg) by mouth two times a day. 180 Tablet 1 024 2024 Discontinued sertraline (ZOLOFT) 100 MG tabletIndicatio ns:Adjustment disorder with anxiety (HRC),Recurrent major depressive disorder, in full remission (HRC) Take 2 Tablets (200 mg) by mouth daily. 180 Tablet 3 024 2024 Discontinued(* Med change OR same med OR reorder, new dose/direction s) Active Problems Problem Noted Date Diagnosed Date [...] papillomavirus) test positive 10/20/2019 10/12/2023 Overview (10/12/2023): [facility] Review: History: 2020: NILM HPV+ (non 16/18) 2020: ASCUS, HPV- [...] Encounters Date Type Department Care Team Description 04/22/2024 4:00 PM VAN OWNER OPERATOR Telemedicine [facility] [address] [place] [address] Claudine Woodard MD Moderate episode of recurrent major depressive disorder (HRC) (Primary Dx); Stress (HRC); Adjustment disorder with anxiety (HRC); Recurrent major depressive disorder, in full remission (HRC) 03/24/2024 4:00 PM VAN OWNER OPERATOR Telemedicine [address] [place] [address] Claudine Woodard MD Attention deficit hyperactivity disorder (ADHD), combined type (HRC) (Primary Dx); Class 3 severe obesity with serious comorbidity and body mass index (BMI) of 40.0 to 44.9 in adult, unspecified obesity type (HRC); Moderate episode of recurrent major depressive disorder (HRC); PCOS (polycystic ovarian syndrome) (HRC); Hyperlipidemia, unspecified hyperlipidemia type (HRC); Screening, lipid; Screening for diabetes mellitus 02/11/2024 2:30 PM VAN OWNER OPERATOR Telemedicine [address] [address] Yesy Lambert APRN, CAR LUBRICATOR Depression with anxiety (HRC) (Primary Dx); Adjustment disorder with anxiety (HRC); Recurrent major depressive disorder, in full remission (HRC); Social anxiety disorder (HRC) 02/11/[address] [address] Claudine Woodard MD Medication Request 02/07/2024 E-Visit [address] [address] Claudine Woodard MD Dx: Attention deficit hyperactivity disorder (ADHD), combined type (HRC) 02/03/[address] [address] Claudine Woodard MD Refill (metFORMIN XR (GLUCOPHAGE XR) 500 MG 24 hour release tablet [Pharmacy Med Name: METFORMIN ER 500MG 24HR TABS]) from Last 3 Months Immunizations Immunization Administration Dates Next Due DTaP 11/08/1995, 4,05/16/1991,1990,1989 HepB Adult (Engerix-B, 20+ y rs, 3 dose series) 10/10/2005,11/05/2002,09/30/2002 HepB, Unspecified Formulation 10/10/2005, 003,09/30/2002 Hib (PedvaxHIB) 05/16/1991,05/13/1990 Hib, Unspecified Formulation 05/16/1991,05/13/18 91 IPV (Polio) 11/08/1995, 2,05/13/1990,1989 Influenza IIV4 (Quadrivalent ) 0.5mL (64059) 11/13/2019,01/10/2019 MMR 11/05/2002,05/16/1991 Moderna Bivalent 12+ 09/18/2022 Moderna Monovalent Booster 12+ 08/26/2021 PCV20 ([id number]) 09/18/2022 PPSV23 (Pneumovax) 01/10/2019 Pfizer Monovalent 12+ Purple Top 07/22/2020,04/2 11/2020 Td 09/30/2002 Td (7+ yrs) 09/30/2002 Tdap 09/13/2015, 3,11/08/1995,1993,05/16/1991,05/13/1990,1989 Family History Medical History Relation Name Comments Other Father was [facility] police manager with issues Depression Mother Cori Olivo Both [...] file Not on file Not on file Last Filed Vital Signs [...] 09/10/2023 8:45 AM CDT Plan of Treatment Health Maintenance Due Date Last Done Comments COVID-19 Vaccine ( season) 2023 09/18/2022, 08/26/2021, 07/22/2020, Additional history exists Influenza (#1) 2023 11/13/2019, 01/10/2019 Adult Preventive Visit 09/09/2025 , 09/18/2022, 10/06/2019 DTaP/Tdap/Td (8 - Tdap) 09/12/2025 09/13/19 16, 04/03/2012, 09/30/2002, [...] on patient's age to complete this topic Meningococcal B Aged Out No longer el igible based on patient's age to complete this topic Procedures Procedure Name Priority Date/Time Associated Diagnosis Comments PAP TEST Routine 09/10/2023 9:58 AM CDT Screening for malignant neoplasm of cervix HEPATITIS C ANTIBODY, WITH REFLEX Routine 04/05/2023 11:40 AM VAN OWNER OPERATOR Need for hepatitis C screening test HIV 1/2 AG/AB 4TH GEN Routine 10/06/2019 1:53 PM CDT Screening for HIV (human immunodeficiency virus) from Last 3 Months or Most Recently Relevant to Health Maintenance Results * PAP Test (09/10/2023 9:58 AM CDT) Case Report Pap Case: [id number] Authorizing Provider: Claudine Woodard MD Collected: 09/10/2023 0958 Ordering Location: [facility] Received: 09/10/2023 1019 First Screen: SANJUANITA CERON Rescreen: Yocasta Fiore Specimen: Pap Test, Routine, Cervix/Endocervix 10/11/2023 3:54 PM CDT [facility] Pap Specimen Adequacy Satisfactory for evaluation, endocervical/pires sformation zone component present. 10/11/2023 3:54 PM CDT [facility] Pap Interpretation (NILM) Negative for intraepithelial lesion or malignancy. 10/11/2023 3:54 PM CDT [facility] at 1554 CDT Pap Disclaimer The Pap test is a screening test to aid in the detection of cervical and vaginal cancers and their precursor lesions. It is not a diagnostic procedure and should not be used as the sole means of detecting malignancy. Both false-positive and false-negative results may occur. 10/11/2023 3:54 PM CDT [facility] Gross Description The specimen is received in SurePath fixative and properly labeled. 1 Pap-stained SurePath slide is prepared. 10/11/2023 3:54 PM CDT [facility] Embedded Images 3:54 PM CDT [facility] Other Specimen Type ENTIRE ENDOCERVIX / Unknown 09/10/2023 9:58 AM CDT 09/10/2023 10:19 AM CDT Comment:LMP: No LMP recorded . (Menstrual status: Irregular). Claudine Woodard MD LAB PATHOLOGY Final Resul t [facility] [address] * Hepatitis C Antibody, with Reflex (04/05/2023 11:40 AM VAN OWNER OPERATOR) Hepatitis C Antibody Negative (Non Reactive) Negative (Non Reactive) 04/05/2023 4:38 PM VAN OWNER OPERATOR [facility] Comment:Antibodies to HCV no t detected. Does not exclude the possiblity of exposure to HCV. Blood Venipuncture / Unknown 04/05/2023 11:40 AM VAN OWNER OPERATOR 04/05/2023 11:40 AM VAN OWNER OPERATOR us Claudine Woodard MD LAB_1 Final Resul t Performing Organization Address [facility] Co de Phone Number [facility] [address] [place] [address] * HIV 1/2 Ag/Ab 4th Generation (10/06/2019 1:53 PM CDT) HIV 1/2 Antigen/Antib analy (4th generation) Negative (Non Reactive) Negative (Non Reactive) 10/06/2019 6:36 PM CDT [facility] Comment:HIV-1 p24 Antigen an d HIV-1/HIV-2 Antibody not detected Blood Venipuncture / Unknown 10/06/2019 1:53 PM CDT 10/06/2019 1:53 PM CDT us Claudine Woodard MD LAB_1 Final Resul t Performing Organization Address [facility] de Phone Number [facility] [address] from Last 3 Months or Most Recently Relevant to Health Maintenance Insurance SELF INSURED [employer] SELF INSURED Julianna OLIVER Advance Directives * Full Code (Latest Code Status on File) Date Activated Date Inactivated Comments 12/06/2015 8:35 AM 12/08/2015 4:52 PM Care Teams Nut Cracker Relationship Specialty Start Date End Date Claudine Woodard MD [address] [place] [address] PCP - General Family Practice 01/06/19
--- OUTSIDE RECORDS SUMMARY | 2024-05-03 16:10 | XMS_ITS | Encounter Summary ---
Author Organization [facility] Address [address] [place] [address] Care Team Providers Care Tile Layer Supervisor Name Role Phone Claudine Woodard MD Primary Care Provider [phone] Encounter Details Date Type Department Care Team (Late st Contact Info) Description 07/13/2015 Scanned History External to External, [place] [address] [facility]-PROCEDURE NOTES Social History Tobacco Use Types Packs/Day Years Used Date Smoking Tobacco: Never Assessed Comments Unknown Sex and Gender Information Value Date Recorded Sex Assigned at Female 09/18/2022 2:18 PM CDT Legal Sex Female 4:58 AM CDT Gender Identity Non-binary 09/18/2022 2:18 PM CDT Sexual Orientation Lesbian 09/18/2022 2: 18 PM CDT documented as of this encounter Plan of Treatment Not on file documented as of this encounter Visit Diagnoses Not on filedocumented in this encounter Care Teams Tile Layer Supervisor Relationship Specialty Start Date End Date Claudine Woodard MD [facility] [place] [address] PCP - General Family Practice 01/06/19 documented as of this encounter
[2024-05-03 16:24] VITALS: BP 118/80; PULSE 110; RESP 18; TEMP 36.6; O2SAT 99; BMI 38.8
--- NOTE | 2024-05-03 16:41 | ED.GENADULT ---
HPI - General Adult General Chief complaint: Unspecified Complaint, Adult Stated complaint: Potential Poisoning and cancer screening Time Seen by Provider: 05/03/24 16:16 History of Present Illness HPI narrative: pt getting divorce, ex is a math genius and bragging about substances that are heat tolerant that causes colon cancer and is using it on pt. today got rid of all the food in the house. needs to make sure that her and her daughter don't have cancer and being poisoned. asked maintenance to check if their water was tampered with today. 33-year-old woman presenting to the emergency department Related Data Home Medications ?Medication ?Instructions ?Recorded ?Confirmed dextroamphetamine-amphetamine ER 1 cap PO DAILY 05/12/23 05/03/24 30 mg 24hr capsule,extend release metformin 500 mg tablet,extended 2,000 mg PO QDAY 05/12/23 05/03/24 release 24 hr sertraline 100 mg tablet 150 mg PO 05/12/23 05/12/23 Allergies Allergy/AdvReac Type Severity Reaction Status Date / Time No Known Drug Allergies Allergy Verified 05/12/23 09:47 PFSH PFSH Social History Smoking Status: Smoker, status unknown Non-prescribed substance use: denies use Exam Const: Vital Signs, click to edit/add: Vital Signs - 24 hr 05/03/24 16:24 Temperature 97.8 F Pulse Rate [Pulse Oximeter] 110 H Respiratory Rate 18 Blood Pressure [Ri ght Upper Arm] 118/80 Pulse Oximetry 99 Oxygen Delivery Me thod Room Air Course Vital Signs Vital signs: Initial Vital Signs Temperature 97.8 F 05/03/24 16:24 Temperature Source Temporal Artery Scan 05/03/24 16:24 Pulse Rate 110 H 05/03/24 16:24 Respiratory Rate 18 05/03/24 16:24 Blood Pressure 118/80 05/03/24 16:24 Blood Pressure Mean 92 05/03/24 16:24 Blood Pressure Position Sitting 05/03/24 16:24 Pulse Oximetry 99 05/03/24 16:24 Oxygen Delivery Method Room Air 05/03/24 16:24 Vital Signs Temperature 97.8 F 05/03/24 16:24 Pulse Rate 110 H 05/03/24 16:24 Respiratory Rate 18 05/03/24 16:24 Blood Pressure 118/80 05/03/24 16:24 Pulse Oximetry 99 05/03/24 16:24 Oxygen Delivery Method Room Air 05/03/24 16:24 Temperature 97.8 F 05/03/24 16:24 Pulse Rate 110 H 05/03/24 16:24 Respiratory Rate 18 05/03/24 16:24 Blood Pressure 118/80 05/03/24 16:24 Pulse Oximetry 99 05/03/24 16:24 Oxygen Delivery Method Room Air 05/03/24 16:24 Discharge Plan Discharge Prescriptions: No Action dextroamphetamine-amphetamine 30 mg capsule,extended release 24hr 1 cap PO DAILY metformin 500 mg tablet extended release 24 hr 2,000 mg PO QDAY sertraline 100 mg tablet 150 mg PO Follow Up/Referrals: Gabriella Mobley PA-C [Primary Care Provider] -
--- OUTSIDE RECORDS SUMMARY | 2024-05-03 18:47 | XMS_ITS | Encounter Summary ---
Author Organization [facility] Address [address] [place] [address] Care Team Providers Care Hotel Or Motel Cleaning Supervisor Name Role Phone Claudine Woodard MD Primary Care Provider [phone] Encounter Details Date Type Department Care Team (Late st Contact Info) Description 12/06/2015 Scanned History External to External, [place] [address] [facility]- RECORDS Social History Tobacco Use Types Packs/Day [...] on filedocumented in this encounter Care Teams Hotel Or Motel Cleaning Supervisor Relationship Specialty Start Date End Date Claudine Woodard MD [facility] [place] [address] PCP - General Family Practice 01/06/19 documented as of this encounter
--- OUTSIDE RECORDS SUMMARY | 2024-05-03 18:47 | XMS_ITS | Clinical Summary ---
Author Organization [facility] Address [address] [place] [address]. [place] [address] Care Team Providers Care Mobile Mechanic Name Role Phone [facility] [place] Primary [...] on file Legal Sex Female 4:33 AM METAL FINISH INSPECTOR Gender Identity Not on file Sexual Orientation [...] of Treatment Not on file Care Teams Mobile Mechanic Relationship Specialty Start Date End Date [facility] [address] [place] [address] PCP - General 08/02/22
--- OUTSIDE RECORDS SUMMARY | 2024-05-03 18:47 | XMS_ITS | Clinical Summary ---
Author Organization [facility] Address [address] [place] [address] Care Team Providers Care Geological Technician Name Role Phone Pcp, No Primary Care [...] on file Legal Sex Female 8:15 AM ENGLISH LANGUAGE ARTS TEACHER Gender Identity Not on file Sexual Orientation Not on file Obstetrics History Para Term AB IAB SAB Ectopic Multiple Livin g Live Births 1 Date Outcome GA Total Labor Labor/2nd/3rd Weight Sex Type Anes PTL Criss A1 A5 Name Clin Last Filed Vital Signs Vital Sign Reading Time Taken Comments Blood Pressure 122/81 03/10/2022 11:08 AM ENGLISH LANGUAGE ARTS TEACHER Pulse 96 03/10/2022 11:08 AM ENGLISH LANGUAGE ARTS TEACHER Temperature 36.9 C (98.4 F) 03/10/2022 11:08 AM ENGLISH LANGUAGE ARTS TEACHER Respiratory Rate 16 05/22/2014 1:03 AM CDT Oxygen Saturation 98% 03/10/2022 11: 08 AM ENGLISH LANGUAGE ARTS TEACHER Inhaled Oxygen Concentration - - Weight 123.7 kg (272 lb 9.6 oz) 023 11:08 AM ENGLISH LANGUAGE ARTS TEACHER Height 164 cm (5' 4.57) 10/18/2018 11: [...] Insurance [employer] Care Teams Geological Technician Relationship Specialty Start Date End Date Pcp, No . PCP - General 10/08/17
--- OUTSIDE RECORDS SUMMARY | 2024-05-03 18:47 | XMS_ITS | Encounter Summary ---
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
--- OUTSIDE RECORDS SUMMARY | 2024-05-03 18:47 | XMS_ITS | Clinical Summary ---
Author Organization [facility] Address [address] [place] [address] Care Team Providers Care Rn Radiation Name Role Phone Claudine Woodard MD Primary Care Provider [phone] Source Comments You are receiving this document [...] for each transition of care or referral. [employer] Allergies Active Allergy Reactions Criticality Noted Date [...] positive 10/20/2019 10/12/2023 Overview (10/12/2023): [facility] Review: History: 2020: NILM HPV+ (non [...] Department Care Team Description 04/22/2024 4:00 PM FISH FRYER Telemedicine [facility] [address] [place] [address] Claudine Woodard MD Moderate episode of recurrent major depressive disorder (HRC) (Primary Dx); Stress (HRC); Adjustment disorder with anxiety (HRC); Recurrent major depressive disorder, in full remission (HRC) 03/24/2024 4:00 PM FISH FRYER Telemedicine [address] [place] [address] Claudine Woodard MD Attention deficit hyperactivity disorder (ADHD), combined type (HRC) (Primary Dx); Class 3 severe obesity with serious comorbidity and body mass index (BMI) of 40.0 to 44.9 in adult, unspecified obesity type (HRC); Moderate episode of recurrent major depressive disorder (HRC); PCOS (polycystic ovarian syndrome) (HRC); Hyperlipidemia, unspecified hyperlipidemia type (HRC); Screening, lipid; Screening for diabetes mellitus 02/11/2024 2:30 PM FISH FRYER Telemedicine [address] [address] Yesy Lambert APRN, FOOD TRADES ASSISTANTS Depression with anxiety (HRC) (Primary Dx); Adjustment disorder with anxiety (HRC); Recurrent major depressive disorder, in full remission (HRC); Social anxiety disorder (HRC) 02/11/[address] [address] Claudine Woodard MD Medication Request 02/07/2024 E-Visit [address] [address] Claudine Woodard MD Dx: Attention deficit hyperactivity disorder (ADHD), combined type (HRC) 02/03/[address] [address] Claudine Woodard MD Refill (metFORMIN XR (GLUCOPHAGE [...] 11/08/1995, 2,05/13/1990,1989 Influenza IIV4 (Quadrivalent ) 0.5mL (64371) 11/13/2019,01/10/2019 MMR 11/05/2002,05/16/1991 Moderna Bivalent 12+ 09/18/2022 Moderna Monovalent Booster 12+ 08/26/2021 PCV20 ([id number]) 09/18/2022 PPSV23 (Pneumovax) 01/10/2019 Pfizer Monovalent 12+ Purple Top 07/22/2020,04/2 11/2020 Td 09/30/2002 Td (7+ yrs) 09/30/2002 Tdap 09/13/2015, 3,11/08/1995,1993,05/16/1991,05/13/1990,1989 Family History Medical History Relation Name Comments Other Father was [facility] public safety police with issues Depression Mother Cori Olivo Both [...] ANTIBODY, WITH REFLEX Routine 04/05/2023 11:40 AM FISH FRYER Need for hepatitis C screening test HIV 1/2 AG/AB 4TH GEN Routine 10/06/2019 1:53 PM CDT Screening for HIV (human immunodeficiency virus) from Last 3 Months or Most Recently Relevant to Health Maintenance Results * PAP Test (09/10/2023 9:58 AM CDT) Case Report Pap Case: [id number] Authorizing Provider: Claudine Woodard MD Collected: 09/10/2023 0958 Ordering Location: [facility] Received: 09/10/2023 1019 First Screen: SANJUANITA CERON Rescreen: Yocasta Fiore Specimen: Pap Test, Routine, Cervix/Endocervix 10/11/2023 3:54 PM CDT [facility] Pap Specimen Adequacy Satisfactory for evaluation, endocervical/pires sformation zone component present. 10/11/2023 3:54 PM CDT [facility] Pap Interpretation (NILM) Negative for intraepithelial lesion or malignancy. 10/11/2023 3:54 PM CDT [facility] at 1554 CDT Pap Disclaimer The Pap test is a screening test to aid in the detection of cervical and vaginal cancers and their precursor lesions. It is not a diagnostic procedure and should not be used as the sole means of detecting malignancy. Both false-positive and false-negative results may occur. 10/11/2023 3:54 PM CDT [facility] Gross Description The specimen is received in SurePath fixative and properly labeled. 1 Pap-stained SurePath slide is prepared. 10/11/2023 3:54 PM CDT [facility] Embedded Images 3:54 PM CDT [facility] Other Specimen Type ENTIRE ENDOCERVIX / Unknown 09/10/2023 9:58 AM CDT 09/10/2023 10:19 AM CDT Comment:LMP: No LMP recorded . (Menstrual status: Irregular). Claudine Woodard MD LAB PATHOLOGY Final Resul t [facility] [address] * Hepatitis C Antibody, with Reflex (04/05/2023 11:40 AM FISH FRYER) Hepatitis C Antibody Negative (Non Reactive) Negative (Non Reactive) 04/05/2023 4:38 PM FISH FRYER [facility] Comment:Antibodies to HCV no t detected. Does not exclude the possiblity of exposure to HCV. Blood Venipuncture / Unknown 04/05/2023 11:40 AM FISH FRYER 04/05/2023 11:40 AM FISH FRYER us Claudine Woodard MD LAB_1 Final Resul t Performing Organization Address [facility] Co de Phone Number [facility] [address] [place] [address] * HIV 1/2 Ag/Ab 4th Generation (10/06/2019 1:53 PM CDT) HIV 1/2 Antigen/Antib analy (4th generation) Negative (Non Reactive) Negative (Non Reactive) 10/06/2019 6:36 PM CDT [facility] Comment:HIV-1 p24 Antigen an d HIV-1/HIV-2 Antibody not detected Blood Venipuncture / Unknown 10/06/2019 1:53 PM CDT 10/06/2019 1:53 PM CDT us Claudine Woodard MD LAB_1 Final Resul t Performing Organization Address [facility] de Phone Number [facility] [address] from Last 3 Months or Most Recently Relevant to Health Maintenance Insurance SELF INSURED HP SELF INSURED Julianna OLIVER Advance Directives * Full Code (Latest Code Status on File) Date Activated Date Inactivated Comments 12/06/2015 8:35 AM 12/08/2015 4:52 PM Care Teams Rn Radiation Relationship Specialty Start Date End Date Claudine Woodard MD [address] [place] [address] PCP - General Family Practice 01/06/19
--- OUTSIDE RECORDS SUMMARY | 2024-05-03 18:47 | XMS_ITS | Encounter Summary ---
Author Organization [facility] Address [address] [place] [address] Care Team Providers Care Cloth Shrinking Machine Operator Name Role Phone Claudine Woodard MD Primary Care Provider [phone] Reason for Visit * Reason Comments Follow-up ADHD, weight, mental health Encounter Details Date Type Department Care Team (Late st Contact Info) Description 03/24/2024 4:00 PM ROUSTABOUT Telemedicine [facility] [address] [place] [address] [place] [id number] Claudine Woodard MD [address] [place] [address] [place] [id number] Attention deficit hyperactivity disorder (ADHD), combined type [...] Claudine Woodard MD - 03/24/2024 4:00 PM ROUSTABOUT Decrease buspirone 5 mg to half tab twice daily for 1 week, then stop. Wait 2 weeks after buspirone (make sure you feel ok), then decrease sertraline from 150 mg daily to100 mg daily. If symptoms are worsening, increase back to 150 mg daily. TABOUT TABOUT documented in this encounter Progress Notes * [...] Location of patient: other in parked vehicle TABOUT documented in this encounter Plan of Treatment [...] mellitus documented in this encounter Care Teams Cloth Shrinking Machine Operator Relationship Specialty Start Date End Date Claudine Woodard MD [address] [place] [address] PCP - General Family Practice 01/06/19 documented as of this encounter
--- OUTSIDE RECORDS SUMMARY | 2024-05-03 18:47 | XMS_ITS | Encounter Summary ---
Author Organization [facility] Address [address] [place] [address] Care Team Providers Care Rehabilitation Inspector Name Role Phone Claudine Woodard MD Primary Care Provider [phone] Reason for Visit * Reason Comments Follow-up Mental health Encounter Details Date Type Department Care Team (Late st Contact Info) Description 04/22/2024 4:00 PM TAPPER HAND Telemedicine [facility] [address] [place] [address] [place] [phone] Claudine Woodard MD [address] [place] [address] [place] [phone] Moderate episode of recurrent major depressive disorder [...] on sertraline to 50 mg daily. Encouraged Fergus to start therapy as soon as reasonable. - sertraline (ZOLOFT) 100 MG tablet; Take 1 Tablet (100 mg) by mouth daily. Follow up: Quick Schedule Follow Up Visits Return With: Me (Clinician) Return On or After: 06/30/24 Reason: Video Visit Additional Notes: Mental health f/u This visit was conducted via video. Location of clinician: clinic Location of patient: home ER HAND documented in this encounter Plan of Treatment Not on file documented as of this encounter Visit Diagnoses Diagnosis Moderate episode of recurrent major depressive disorder (HRC)- Primary Stress (HRC) Other psychological or physical stress, not elsewhere classified Adjustment disorder with anxiety (HRC) Adjustment disorder with anxiety Recurrent major depressive disorder, in full remission (HRC) documented in this encounter Care Teams Rehabilitation Inspector Relationship Specialty Start Date End Date Claudine Woodard MD [address] [place] [address] PCP - General Family Practice 01/06/19 documented as of this encounter
--- OUTSIDE RECORDS SUMMARY | 2024-05-03 18:47 | XMS_ITS | Encounter Summary ---
Author Organization [facility] Address [address] [place] [address] Care Team Providers Care Rubber Stamps And Dies Supervisor Name Role Phone Claudine Woodard MD Primary Care Provider [phone] Encounter Details Date Type Department Care Team (Late st Contact Info) Description 07/13/2015 Scanned History External to External, [place] [address] [facility]-PROCEDURE NOTES Social History Tobacco Use Types Packs/Day [...] on filedocumented in this encounter Care Teams Rubber Stamps And Dies Supervisor Relationship Specialty Start Date End Date Claudine Woodard MD [facility] [place] [address] PCP - General Family Practice 01/06/19 documented as of this encounter
== END 2024-05-03 18:44 | disposition left against medical advice (07) ==
LOC: ED 18:45
PROVIDERS: Emergency Provider Family Medicine; PCP Physician Assistant Medical
DX: Z53.21 Procedure and treatment not carried out due to patient leaving prior to being seen by health care provider (principal)

== ENCOUNTER 2024-05-08 10:05 | Emergency (ER) | payer MEDICAID, SELFPAY ==
--- OUTSIDE RECORDS SUMMARY | 2024-05-08 10:08 | XMS_ITS | Encounter Summary ---
Author Organization [facility] Address [address] [place] [address] Care Team Providers Care Portuguese Tutor Name Role Phone Claudine Woodard MD Primary Care Provider [phone] Encounter Details Date Type Department Care Team (Late st Contact Info) Description 12/06/2015 Scanned History External to External, [place] [address] [facility]- RECORDS Social History Tobacco Use Types Packs/Day [...] on filedocumented in this encounter Care Teams Portuguese Tutor Relationship Specialty Start Date End Date Claudine Woodard MD [facility] [place] [address] PCP - General Family Practice 01/06/19 documented as of this encounter
--- OUTSIDE RECORDS SUMMARY | 2024-05-08 10:08 | XMS_ITS | Clinical Summary ---
Author Organization [facility] Address [address] [place] [address]. [place] [address] Care Team Providers Care Threading Machine Operator Name Role Phone [facility] Primary [...] on file Legal Sex Female 4:33 AM SURGICAL SUPPLY ASSISTANT Gender Identity Not on file Sexual Orientation [...] of Treatment Not on file Care Teams Threading Machine Operator Relationship Specialty Start Date End Date [facility] [address] [place] [address] PCP - General 08/02/22
--- OUTSIDE RECORDS SUMMARY | 2024-05-08 10:08 | XMS_ITS | Clinical Summary ---
Author Organization [facility] Address [address] [place] [address] Care Team Providers Care Associate Teacher Name Role Phone Claudine Woodard MD Primary Care Provider [phone] Source Comments You are receiving this document [...] for each transition of care or referral. [employer] Allergies Active Allergy Reactions Criticality Noted Date [...] papillomavirus) test positive 10/20/2019 10/12/2023 Overview (10/12/2023): [facility] Review: History: 2020: NILM HPV+ (non 16/18) [...] Department Care Team Description 04/22/2024 4:00 PM BOX BRANDER Telemedicine [facility] [address] [place] [address] Claudine Woodard MD Moderate episode of recurrent major depressive disorder (HRC) (Primary Dx); Stress (HRC); Adjustment disorder with anxiety (HRC); Recurrent major depressive disorder, in full remission (HRC) 03/24/2024 4:00 PM BOX BRANDER Telemedicine [address] [address] Claudine Woodard MD Attention deficit hyperactivity disorder (ADHD), combined type (HRC) (Primary Dx); Class 3 severe obesity with serious comorbidity and body mass index (BMI) of 40.0 to 44.9 in adult, unspecified obesity type (HRC); Moderate episode of recurrent major depressive disorder (HRC); PCOS (polycystic ovarian syndrome) (HRC); Hyperlipidemia, unspecified hyperlipidemia type (HRC); Screening, lipid; Screening for diabetes mellitus 02/11/2024 2:30 PM BOX BRANDER Telemedicine [address] [address] Yesy Lambert APRN, FLATWORK FINISHER HAND Depression with anxiety (HRC) (Primary Dx); Adjustment disorder with anxiety (HRC); Recurrent major depressive disorder, in full remission (HRC); Social anxiety disorder (HRC) 02/11/[address] [address] Claudine Woodard MD Medication Request from Last 3 Months Immunizations Immunization Administration Dates Next Due DTaP 11/08/1995, 4,05/16/1991,1990,1989 HepB Adult (Engerix-B, 20+ y rs, 3 dose series) 10/10/2005,11/05/2002,09/30/2002 HepB, Unspecified Formulation 10/10/2005, 003,09/30/2002 Hib (PedvaxHIB) 05/16/1991,05/13/1990 Hib, Unspecified Formulation 05/16/1991,05/13/18 91 IPV (Polio) 11/08/1995, 2,05/13/1990,1989 Influenza IIV4 (Quadrivalent ) 0.5mL ([id number]) 11/13/2019,01/10/2019 MMR 11/05/2002,05/16/1991 Moderna Bivalent 12+ 09/18/2022 Moderna Monovalent Booster 12+ 08/26/2021 PCV20 ([id number]) 09/18/2022 PPSV23 (Pneumovax) 01/10/2019 Pfizer Monovalent 12+ Purple Top 07/22/2020,04/2 11/2020 Td 09/30/2002 Td (7+ yrs) 09/30/2002 Tdap 09/13/2015, 3,11/08/1995,1993,05/16/1991,05/13/1990,1989 Family History Medical History Relation Name Comments Other Father was [employer] police manager with issues Depression Mother Cori [...] Preventive Visit 09/09/2025 4, 09/18/2022, 10/06/2019 DTaP/Tdap/Td (8 - Tdap) 09/12/2025 [...] Procedure Name Priority Date/Time Associated Diagnosis Comments CYTOLOGY (PAP) Routine 09/10/2023 9:58 AM CDT Screening for malignant neoplasm of cervix HEPATITIS C ANTIBODY, WITH REFLEX Routine 04/05/2023 11:40 AM BOX BRANDER Need for hepatitis C screening test HIV 1/2 AG/AB 4TH GEN Routine 10/06/2019 1:53 PM CDT Screening for HIV (human immunodeficiency virus) from Last 3 Months or Most Recently Relevant to Health Maintenance Results * PAP Test (09/10/2023 9:58 AM CDT) Case Report Pap Case: [id number] Authorizing Provider: Claudine Woodard MD Collected: 09/10/2023 0958 Ordering Location: [facility] Received: 09/10/2023 1019 First Screen: SANJUANITA CERON Rescreen: Yocasta Fiore Specimen: Pap Test, Routine, Cervix/Endocervix 10/11/2023 3:54 PM CDT [facility] Pap Specimen Adequacy Satisfactory for evaluation, endocervical/pires sformation zone component present. 10/11/2023 3:54 PM CDT [facility] Pap Interpretation (NILM) Negative for intraepithelial lesion or malignancy. 10/11/2023 3:54 PM CDT [facility] at 1554 CDT Pap Disclaimer The Pap test is a screening test to aid in the detection of cervical and vaginal cancers and their precursor lesions. It is not a diagnostic procedure and should not be used as the sole means of detecting malignancy. Both false-positive and false-negative results may occur. 10/11/2023 3:54 PM CDT [facility] Gross Description The specimen is received in SurePath fixative and properly labeled. 1 Pap-stained SurePath slide is prepared. 10/11/2023 3:54 PM CDT [facility] Embedded Images 3:54 PM CDT [facility] Other Specimen Type ENTIRE ENDOCERVIX / Unknown 09/10/2023 9:58 AM CDT 09/10/2023 10:19 AM CDT Comment:LMP: No LMP recorded . (Menstrual status: Irregular). Claudine Woodard MD LAB PATHOLOGY Final Resul t Performing Organization Address [facility] de Phone Number [facility] [address] [place] [address] * Hepatitis C Antibody, with Reflex (04/05/2023 11:40 AM BOX BRANDER) Pathologist [facility] Hepatitis C Antibody Negative (Non Reactive) Negative (Non Reactive) 04/05/2023 4:38 PM BOX BRANDER [facility] Comment:Antibodies to HCV no t detected. Does not exclude the possiblity of exposure to HCV. Blood Venipuncture / Unknown 04/05/2023 11:40 AM BOX BRANDER 04/05/2023 11:40 AM BOX BRANDER Claudine Woodard MD LAB_1 Final Resul t Performing Organization Address [facility] de Phone Number [facility] [address] [place] [address] * HIV 1/2 Ag/Ab 4th Generation (10/06/2019 1:53 PM CDT) HIV 1/2 Antigen/Antib analy (4th generation) Negative (Non Reactive) Negative (Non Reactive) 10/06/2019 6:36 PM CDT [facility] Comment:HIV-1 p24 Antigen an d HIV-1/HIV-2 Antibody not detected Blood Venipuncture / Unknown 10/06/2019 1:53 PM CDT 10/06/2019 1:53 PM CDT us Claudine Woodard MD LAB_1 Final Resul t [facility] [address] [place] [address], [facility] from Last 3 Months or Most Recently Relevant to Health Maintenance Insurance SELF INSURED SELF INSURED [employer] ORLY OLIVER Advance Directives * Full Code (Latest Code Status on File) Date Activated Date Inactivated Comments 12/06/2015 8:35 AM 12/08/2015 4:52 PM Care Teams Associate Teacher Relationship Specialty Start Date End Date Claudine Woodard MD [address] [place] [address] PCP - General Family Practice 01/06/19
--- OUTSIDE RECORDS SUMMARY | 2024-05-08 10:08 | XMS_ITS | Clinical Summary ---
Author Organization [facility] Address [address] [place] [address] Care Team Providers Care Flexible Shaft Winder Name Role Phone Pcp, No Primary Care [...] on file Legal Sex Female 8:15 AM ELEMENTARY ART TEACHER Gender Identity Not on file Sexual Orientation Not on file Obstetrics History Para Term AB IAB SAB Ectopic Multiple Livin g Live Births 1 Date Outcome GA Total Labor Labor/2nd/3rd Weight Sex Type Anes PTL Criss A1 A5 Name Clin Last Filed Vital Signs Vital Sign Reading Time Taken Comments Blood Pressure 122/81 03/10/2022 11:08 AM ELEMENTARY ART TEACHER Pulse 96 03/10/2022 11:08 AM ELEMENTARY ART TEACHER Temperature 36.9 C (98.4 F) 03/10/2022 11:08 AM ELEMENTARY ART TEACHER Respiratory Rate 16 05/22/2014 1:03 AM CDT Oxygen Saturation 98% 03/10/2022 11: 08 AM ELEMENTARY ART TEACHER Inhaled Oxygen Concentration - - Weight 123.7 kg (272 lb 9.6 oz) 023 11:08 AM ELEMENTARY ART TEACHER Height 164 cm (5' 4.57) 10/18/2018 [...] Insurance [employer] Care Teams Flexible Shaft Winder Relationship Specialty Start Date End Date Pcp, No . PCP - General 10/08/17
--- OUTSIDE RECORDS SUMMARY | 2024-05-08 10:08 | XMS_ITS | Encounter Summary ---
Author Organization [facility] Address [address] [place] [address] Care Team Providers Care Target Developer Name Role Phone Claudine Woodard MD Primary Care Provider [phone] Encounter Details Date Type Department Care Team (Late st Contact Info) Description 07/13/2015 Scanned History External to External, [place] [address] [facility]-PROCEDURE NOTES Social History Tobacco Use [...] on filedocumented in this encounter Care Teams Target Developer Relationship Specialty Start Date End Date Claudine Woodard MD [facility] [place] [address] PCP - General Family Practice 01/06/19 documented as of this encounter
--- OUTSIDE RECORDS SUMMARY | 2024-05-08 10:08 | XMS_ITS | Encounter Summary ---
Author Organization [facility] Address [address] [place] [address] Care Team Providers Care Continuous Vulcanizing Machine Operator Name Role Phone Claudine Woodard MD Primary Care Provider [phone] Encounter Details Date Type Department Care Team (Late st Contact Info) Description 12/08/2015 Correspondence None No Primary/Referring, Phy HME EQUIPMENT AUTOMOTIVE SERVICE PORTER TICKET Social History Tobacco Use Types Packs/Day [...] on filedocumented in this encounter Care Teams Continuous Vulcanizing Machine Operator Relationship Specialty Start Date End Date Claudine Woodard MD On license of [facility] [place] [address] PCP - General Family Practice 01/06/19 documented as of this encounter
--- OUTSIDE RECORDS SUMMARY | 2024-05-08 10:08 | XMS_ITS | Encounter Summary ---
Author Organization [facility] Address [address] [place] [address] Care Team Providers Care Wiper Blender Name Role Phone Claudine Woodard MD Primary Care Provider [phone] Reason for Visit * Reason Comments Follow-up Mental health Encounter Details Date Type Department Care Team (Late st Contact Info) Description 04/22/2024 4:00 PM LEHR STRIPPER Telemedicine [facility] [address] [place] [address] [place] [phone] Claudine Woodard MD [address] [place] [address] [place] [phone] Moderate episode of recurrent major depressive disorder [...] on sertraline to 50 mg daily. Encouraged Early to start therapy as soon as reasonable. - sertraline (ZOLOFT) 100 MG tablet; Take 1 Tablet (100 mg) by mouth daily. Follow up: Quick Schedule Follow Up Visits Return With: Me (Clinician) Return On or After: 06/30/24 Reason: Video Visit Additional Notes: Mental health f/u This visit was conducted via video. Location of clinician: clinic Location of patient: home STRIPPER documented in this encounter Plan of Treatment Not on file documented as of this encounter Visit Diagnoses Diagnosis Moderate episode of recurrent major depressive disorder (HRC)- Primary Stress (HRC) Other psychological or physical stress, not elsewhere classified Adjustment disorder with anxiety (HRC) Adjustment disorder with anxiety Recurrent major depressive disorder, in full remission (HRC) documented in this encounter Care Teams Wiper Blender Relationship Specialty Start Date End Date Claudine Woodard MD [address] [place] [address] PCP - General Family Practice 01/06/19 documented as of this encounter
--- OUTSIDE RECORDS SUMMARY | 2024-05-08 10:08 | XMS_ITS | Encounter Summary ---
Author Organization [facility] Address [address] [place] [address] Care Team Providers Care Seam Rubbing Machine Operator Name Role Phone Claudine Woodard MD Primary Care Provider [phone] Reason for Visit * Reason Comments Follow-up ADHD, weight, mental health Encounter Details Date Type Department Care Team (Late st Contact Info) Description 03/24/2024 4:00 PM HOSPICE MUSIC THERAPIST Telemedicine [facility] [address] [place] [address] CRISTOFER [place] [id number] Claudine Woodard MD [address] [place] [address] [place] [id number] Attention deficit hyperactivity disorder (ADHD), combined type [...] Claudine Woodard MD - 03/24/2024 4:00 PM HOSPICE MUSIC THERAPIST Decrease buspirone 5 mg to half tab twice daily for 1 week, then stop. Wait 2 weeks after buspirone (make sure you feel ok), then decrease sertraline from 150 mg daily to100 mg daily. If symptoms are worsening, increase back to 150 mg daily. ICE MUSIC THERAPIST ICE MUSIC THERAPIST documented in this encounter Progress Notes * [...] Location of patient: other in parked vehicle ICE MUSIC THERAPIST documented in this encounter Plan of Treatment [...] mellitus documented in this encounter Care Teams Seam Rubbing Machine Operator Relationship Specialty Start Date End Date Claudine Woodard MD [address] [place] [address] PCP - General Family Practice 01/06/19 documented as of this encounter
[2024-05-08 10:12] VITALS: BP 129/88; PULSE 98; RESP 18; TEMP 37.4; O2SAT 95; BMI 39.5
[2024-05-08 10:53] LABS: Appearance Urine Clear (Clear); Bilirubin Urine Negative (Negative); Blood Urine 1+ (Negative); Color Urine Dark yellow (Yellow); Glucose Urine Negative (Negative); Ketones Urine Trace (Negative); Leukocyte Esterase Urine Negative (Negative); Nitrite Urine Negative (Negative); Protein Urine Negative (Negative); Urobilinogen Urine 0.2 (0.2-1.0)
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
[2024-05-08 11:01] LABS: Basophils Absolute Auto 0.05 K/uL (0.00-0.30); Basophils Percent Auto 0.5 % (0.0-3.0); Eosinophils Absolute Auto 0.19 K/uL (0.00-0.50); Eosinophils Percent Auto 2.1 % (0.0-7.0); Hematocrit* 41.5 % (33.0-51.0); Hemoglobin* 13.6 gm/dL (12.0-16.0); Immature Granulocytes Abs Auto 0.01 K/uL (0.00-0.30); Immature Granulocytes Pct Auto 0.1 %; Lymphocytes Percent Auto 16.3 % (20-44); Mean Corpuscular HGB Conc 33 gm/dL (32-36); Mean Corpuscular Hemoglobin 31 pg (26-34); Mean Corpuscular Volume 94 fL (80-100); Platelet Count* 272 K/uL (140-440); RDW Coefficient of Variation % 12.4 % (11.5-15.5); Red Blood Count* 4.44 m/uL (4.00-5.20); White Blood Count* 9.22 K/uL (4.50-11.00)
[2024-05-08 11:01] LABS: RBC Urine 0-2 (0-2); Squamous Epithelial Cell Urine Few (None-Few); Ur HCG Qualitative* Negative (Negative); WBC Urine 0-2 (0-5)
[2024-05-08 11:02] LABS: Bacteria Urine Few
[2024-05-08 11:06] LABS: Slide Review Reflex No
[2024-05-08 11:14] LABS: Albumin* 4.2 g/dL (3.3-5.0); Chloride* 106 mmol/L (96-114); Sodium* 138 mmol/L (135-149)
[2024-05-08 11:15] LABS: Potassium* 3.6 mmol/L (3.6-5.1)
[2024-05-08 11:17] LABS: Alkaline Phosphatase* 45 U/L (40-150); Anion Gap 8 mEq/L (7-15); Aspartate Amino Transferase* 20 U/L (12-35); Bilirubin Total* 0.5 mg/dL (0.1-1.5); Blood Urea Nitrogen* 15 mg/dL (5-24); Carbon Dioxide* 24 mmol/L (20-32); Creatinine* 0.7 mg/dL (0.5-1.5); Est. Creatinine Clearance* 97.79; Estimated Glomerular Filt Rate 116 ml/min; Total Protein* 6.8 g/dL (6.0-8.3)
[2024-05-08 11:18] LABS: Alanine Aminotransferase* 33 U/L (4-35); Glucose* 95 mg/dL (60-115); Lipase* 38 U/L (23-300)
[2024-05-08 11:20] LABS: Cannabinoid Screen Urine POSITIVE (Negative)
[2024-05-08 11:23] LABS: Amphetamine Screen Urine POSITIVE (Negative); Barbiturate Screen Urine Negative (Negative); Benzodiazepines Screen Urine Negative (Negative); Buprenorphine Screen Urine Negative (Negative); Cocaine Screen Urine Negative (Negative); Methadone Screen Urine Negative (Negative); Methamphetamines Screen Urine Negative (Negative); Opiate Screen Urine Negative (Negative); Oxycodone Screen Urine Negative (Negative); Phencyclidine Screen Urine Negative (Negative); Tricyclic Antidepressant Urine Negative (Negative)
[2024-05-08 11:26] LABS: C Reactive Protein* < 0.5 mg/dL (0.5-1.0)
--- OUTSIDE RECORDS SUMMARY | 2024-05-08 11:26 | XMS_ITS | Encounter Summary ---
Author Organization [facility] Address [address] [place] [address] Care Team Providers Care Catalogue Compiler Name Role Phone Claudine Woodard MD Primary Care Provider [phone] Reason for Visit * Reason Comments Follow-up ADHD, weight, mental health Encounter Details Date Type Department Care Team (Late st Contact Info) Description 03/24/2024 4:00 PM VOLUNTEER FIRE FIGHTER Telemedicine [facility] [address] [place] [address] CRISTOFER [place] [phone] Claudine Woodard MD [address] [place] [address] [place] [id number] Attention deficit hyperactivity disorder (ADHD), combined type [...] Claudine Woodard MD - 03/24/2024 4:00 PM VOLUNTEER FIRE FIGHTER Decrease buspirone 5 mg to half tab twice daily for 1 week, then stop. Wait 2 weeks after buspirone (make sure you feel ok), then decrease sertraline from 150 mg daily to100 mg daily. If symptoms are worsening, increase back to 150 mg daily. NTEER FIRE FIGHTER NTEER FIRE FIGHTER documented in this encounter Progress Notes * [...] Location of patient: other in parked vehicle NTEER FIRE FIGHTER documented in this encounter Plan of Treatment [...] mellitus documented in this encounter Care Teams Catalogue Compiler Relationship Specialty Start Date End Date Claudine Woodard MD [address] [place] [address] PCP - General Family Practice 01/06/19 documented as of this encounter
--- OUTSIDE RECORDS SUMMARY | 2024-05-08 11:26 | XMS_ITS | Encounter Summary ---
Author Organization [facility] Address [address] [place] [address] Care Team Providers Care Analytical Lead Name Role Phone Claudine Woodard MD Primary Care Provider [phone] Reason for Visit * Reason Comments Follow-up Mental health Encounter Details Date Type Department Care Team (Late st Contact Info) Description 04/22/2024 4:00 PM RATING EXAMINER Telemedicine [facility] [address] [place] [address] CRISTOFER [place] [phone] Claudine Woodard MD [address] [place] [address] [place] [id number] Moderate episode of recurrent major depressive disorder [...] on sertraline to 50 mg daily. Encouraged Long to start therapy as soon as reasonable. - sertraline (ZOLOFT) 100 MG tablet; Take 1 Tablet (100 mg) by mouth daily. Follow up: Quick Schedule Follow Up Visits Return With: Me (Clinician) Return On or After: 06/30/24 Reason: Video Visit Additional Notes: Mental health f/u This visit was conducted via video. Location of clinician: clinic Location of patient: home NG EXAMINER documented in this encounter Plan of Treatment Not on file documented as of this encounter Visit Diagnoses Diagnosis Moderate episode of recurrent major depressive disorder (HRC)- Primary Stress (HRC) Other psychological or physical stress, not elsewhere classified Adjustment disorder with anxiety (HRC) Adjustment disorder with anxiety Recurrent major depressive disorder, in full remission (HRC) documented in this encounter Care Teams Analytical Lead Relationship Specialty Start Date End Date Claudine Woodard MD [address] [place] [address] PCP - General Family Practice 01/06/19 documented as of this encounter
--- OUTSIDE RECORDS SUMMARY | 2024-05-08 11:26 | XMS_ITS | Encounter Summary ---
Author Organization [facility] Address [address] [place] [address] Care Team Providers Care Caterers Helper Name Role Phone Claudine Woodard MD Primary Care Provider [phone] Encounter Details Date Type Department Care Team (Late st Contact Info) Description 12/06/2015 Scanned History External to External, [place] [address] [facility] Social History Tobacco Use Types Packs/Day [...] on filedocumented in this encounter Care Teams Caterers Helper Relationship Specialty Start Date End Date Claudine Woodard MD [facility] [place] [address] PCP - General Family Practice 01/06/19 documented as of this encounter
--- OUTSIDE RECORDS SUMMARY | 2024-05-08 11:26 | XMS_ITS | Clinical Summary ---
Author Organization [facility] Address [address] [place] [address] Care Team Providers Care Healthcare Economics Consultant Name Role Phone Pcp, No Primary Care [...] on file Legal Sex Female 8:15 AM GOLF CLUB WEIGHER Gender Identity Not on file Sexual Orientation Not on file Obstetrics History Para Term AB IAB SAB Ectopic Multiple Livin g Live Births 1 Date Outcome GA Total Labor Labor/2nd/3rd Weight Sex Type Anes PTL Criss A1 A5 Name Clin Last Filed Vital Signs Vital Sign Reading Time Taken Comments Blood Pressure 122/81 03/10/2022 11:08 AM GOLF CLUB WEIGHER Pulse 96 03/10/2022 11:08 AM GOLF CLUB WEIGHER Temperature 36.9 C (98.4 F) 03/10/2022 11:08 AM GOLF CLUB WEIGHER Respiratory Rate 16 05/22/2014 1:03 AM CDT Oxygen Saturation 98% 03/10/2022 11: 08 AM GOLF CLUB WEIGHER Inhaled Oxygen Concentration - - Weight 123.7 kg (272 lb 9.6 oz) 023 11:08 AM GOLF CLUB WEIGHER Height 164 cm (5' 4.57) 10/18/2018 11: [...] Insurance [employer] Care Teams Healthcare Economics Consultant Relationship Specialty Start Date End Date Pcp, No . PCP - General 10/08/17
--- OUTSIDE RECORDS SUMMARY | 2024-05-08 11:26 | XMS_ITS | Encounter Summary ---
Author Organization [facility] Address [address] [place] [address] Care Team Providers Care Food Products Sales Representative Name Role Phone Claudine Woodard MD Primary Care Provider [phone] Encounter Details Date Type Department Care Team (Late st Contact Info) Description 12/08/2015 Correspondence None No Primary/Referring, Phy HME EQUIPMENT AWNING ERECTOR TICKET Social History Tobacco Use Types Packs/Day [...] on filedocumented in this encounter Care Teams Food Products Sales Representative Relationship Specialty Start Date End Date Claudine Woodard MD Counts include 234 beds at the [facility] [place] [address] PCP - General Family Practice 01/06/19 documented as of this encounter
--- OUTSIDE RECORDS SUMMARY | 2024-05-08 11:27 | XMS_ITS | Encounter Summary ---
Author Organization [facility] Address [address] [place] [address] Care Team Providers Care Check Services Clerk Name Role Phone Claudine Woodard MD Primary Care Provider [phone] Encounter Details Date Type Department Care Team (Late st Contact Info) Description 07/13/2015 Scanned History External to External, [place] [address] [facility]-PROCEDURE NOTES Social History Tobacco Use [...] on filedocumented in this encounter Care Teams Check Services Clerk Relationship Specialty Start Date End Date Claudine Woodard MD [facility] [place] [address] PCP - General Family Practice 01/06/19 documented as of this encounter
--- OUTSIDE RECORDS SUMMARY | 2024-05-08 11:27 | XMS_ITS | Clinical Summary ---
Author Organization [facility] Address [address] [place] [address] Care Team Providers Care Hall Tender Name Role Phone Claudine Woodard MD Primary Care Provider [phone] Source Comments You are receiving this document [...] for each transition of care or referral. [facility]sun Allergies Active Allergy Reactions Criticality Noted Date [...] papillomavirus) test positive 10/20/2019 10/12/2023 Overview (10/12/2023): [facility] Review: History: 2020: NILM HPV+ (non 16/18) [...] Department Care Team Description 04/22/2024 4:00 PM NAIL WELTER Telemedicine [facility] [address] [place] [address] Claudine Woodard MD Moderate episode of recurrent major depressive disorder (HRC) (Primary Dx); Stress (HRC); Adjustment disorder with anxiety (HRC); Recurrent major depressive disorder, in full remission (HRC) 03/24/2024 4:00 PM NAIL WELTER Telemedicine [address] [address] Claudine Woodard MD Attention deficit hyperactivity disorder (ADHD), combined type (HRC) (Primary Dx); Class 3 severe obesity with serious comorbidity and body mass index (BMI) of 40.0 to 44.9 in adult, unspecified obesity type (HRC); Moderate episode of recurrent major depressive disorder (HRC); PCOS (polycystic ovarian syndrome) (HRC); Hyperlipidemia, unspecified hyperlipidemia type (HRC); Screening, lipid; Screening for diabetes mellitus 02/11/2024 2:30 PM NAIL WELTER Telemedicine [address] [address] Yesy Lambert APRN, [employer]OLDER [employer] MOLDS Depression with anxiety (HRC) (Primary Dx); Adjustment disorder with anxiety (HRC); Recurrent major depressive disorder, in full remission (HRC); Social anxiety disorder (HRC) 02/11/[address] [address] Claudine Woodard MD Medication Request from Last 3 Months Immunizations Immunization Administration Dates Next Due DTaP 11/08/1995, 4,05/16/1991,1990,1989 HepB Adult (Engerix-B, 20+ y rs, 3 dose series) 10/10/2005,11/05/2002,09/30/2002 HepB, Unspecified Formulation 10/10/2005, 003,09/30/2002 Hib (PedvaxHIB) 05/16/1991,05/13/1990 Hib, Unspecified Formulation 05/16/1991,05/13/18 91 IPV (Polio) 11/08/1995, 2,05/13/1990,1989 Influenza IIV4 (Quadrivalent ) 0.5mL (35973) 11/13/2019,01/10/2019 MMR 11/05/2002,05/16/1991 Moderna Bivalent 12+ 09/18/2022 Moderna Monovalent Booster 12+ 08/26/2021 PCV20 (Knymjuk23) 09/18/2022 PPSV23 (Pneumovax) 01/10/2019 Pfizer Monovalent 12+ Purple Top 07/22/2020,04/2 11/2020 Td 09/30/2002 Td (7+ yrs) 09/30/2002 Tdap 09/13/2015, 3,11/08/1995,1993,05/16/1991,05/13/1990,1989 Family History Medical History Relation Name Comments Other Father was [facility] police officer with issues Depression Mother Cori Olivo [...] Father Alive Mother Cori Olivo Alive of hlaey l failure Brother Agustin Alive Maternal Grandmother [...] ANTIBODY, WITH REFLEX Routine 04/05/2023 11:40 AM NAIL WELTER Need for hepatitis C screening test HIV 1/2 AG/AB 4TH GEN Routine 10/06/2019 1:53 PM CDT Screening for HIV (human immunodeficiency virus) from Last 3 Months or Most Recently Relevant to Health Maintenance Results * PAP Test (09/10/2023 9:58 AM CDT) Case Report Pap Case: [id number] Authorizing Provider: Claudine Woodard MD Collected: 09/10/2023 0958 Ordering Location: [facility] Received: 09/10/2023 1019 First Screen: SANJUANITA CERON Rescreen: Yocasta Fiore Specimen: Pap Test, Routine, Cervix/Endocervix 10/11/2023 3:54 PM CDT [facility] Pap Specimen Adequacy Satisfactory for evaluation, endocervical/pires sformation zone component present. 10/11/2023 3:54 PM CDT [facility] Pap Interpretation (NILM) Negative for intraepithelial lesion or malignancy. 10/11/2023 3:54 PM CDT [facility] at 1554 CDT Pap Disclaimer The Pap test is a screening test to aid in the detection of cervical and vaginal cancers and their precursor lesions. It is not a diagnostic procedure and should not be used as the sole means of detecting malignancy. Both false-positive and false-negative results may occur. 10/11/2023 3:54 PM CDT [facility] Gross Description The specimen is received in SurePath fixative and properly labeled. 1 Pap-stained SurePath slide is prepared. 10/11/2023 3:54 PM CDT [facility] Embedded Images 3:54 PM CDT [facility] Other Specimen Type ENTIRE ENDOCERVIX / Unknown 09/10/2023 9:58 AM CDT 09/10/2023 10:19 AM CDT Comment:LMP: No LMP recorded . (Menstrual status: Irregular). Claudine Woodard MD LAB PATHOLOGY Final Resul t Performing Organization Address [facility] de Phone Number [facility] [address] [place] [address] * Hepatitis C Antibody, with Reflex (04/05/2023 11:40 AM NAIL WELTER) Pathologist [facility] Hepatitis C Antibody Negative (Non Reactive) Negative (Non Reactive) 04/05/2023 4:38 PM NAIL WELTER [facility] Comment:Antibodies to HCV no t detected. Does not exclude the possiblity of exposure to HCV. Blood Venipuncture / Unknown 04/05/2023 11:40 AM NAIL WELTER 04/05/2023 11:40 AM NAIL WELTER Claudine Woodard MD LAB_1 Final Resul t Performing Organization Address [facility] de Phone Number [facility] [address] [place] [address] * HIV 1/2 Ag/Ab 4th Generation (10/06/2019 1:53 PM CDT) HIV 1/2 Antigen/Antib analy (4th generation) Negative (Non Reactive) Negative (Non Reactive) 10/06/2019 6:36 PM CDT [facility] Comment:HIV-1 p24 Antigen an d HIV-1/HIV-2 Antibody not detected Blood Venipuncture / Unknown 10/06/2019 1:53 PM CDT 10/06/2019 1:53 PM CDT us Claudine Woodard MD LAB_1 Final Resul t [facility] [address] [place] [address], [facility] from Last 3 Months or Most Recently Relevant to Health Maintenance Insurance SELF INSURED SELF INSURED [employer] ORLY OLIVER Advance Directives * Full Code (Latest Code Status on File) Date Activated Date Inactivated Comments 12/06/2015 8:35 AM 12/08/2015 4:52 PM Care Teams Hall Tender Relationship Specialty Start Date End Date Claudine Woodard MD [address] [place] [address] PCP - General Family Practice 01/06/19
--- OUTSIDE RECORDS SUMMARY | 2024-05-08 11:27 | XMS_ITS | Clinical Summary ---
Author Organization [facility] Address [address] [place] [address]. [place] [address] Care Team Providers Care Wooden Furniture Polisher Name Role Phone [facility], [facility] Primary [...] on file Legal Sex Female 4:33 AM OCEAN IMPORT REPRESENTATIVE Gender Identity Not on file Sexual Orientation [...] of Treatment Not on file Care Teams Wooden Furniture Polisher Relationship Specialty Start Date End Date [facility], [facility] [address] [place] [address] PCP - General 08/02/22
== END 2024-05-08 11:46 | disposition home or self-care (01) ==
PROVIDERS: Emergency Provider Student in an Organized Health Care Education/Training Program; PCP Physician Assistant Medical
DX: R10.11 Right upper quadrant pain (principal)
CPT/HCPCS: 36415; 80053; 80306; 81001; 81003; 81025; 83690; 84443; 85025; 86140; 87086; 99283

== ENCOUNTER 2024-05-16 11:25 | Emergency (ER) | payer MEDICAID, SELFPAY ==
[2024-05-16 11:26] VITALS: BP 134/97; PULSE 112; RESP 18; TEMP 37.1; O2SAT 100
--- OUTSIDE RECORDS SUMMARY | 2024-05-16 11:27 | XMS_ITS | Encounter Summary ---
Author Organization [email or web address] Address [address] [place] [address] Care Team Providers Care Supervisor Shipping Name Role Phone Claudine Woodard MD Primary Care Provider [phone] Reason for Visit * Reason Comments Follow-up Mental health Encounter Details Date Type Department Care Team (Late st Contact Info) Description 04/22/2024 4:00 PM PIPE STEM SAWYER Telemedicine [facility] [address] [place] [address] C[place] [id number] Claudine Woodard MD [address] [place] [address] [place] [id number] Moderate episode of recurrent major depressive disorder [...] on sertraline to 50 mg daily. Encouraged [place] to start therapy as soon as reasonable. - sertraline (ZOLOFT) 100 MG tablet; Take 1 Tablet (100 mg) by mouth daily. Follow up: Quick Schedule Follow Up Visits Return With: Me (Clinician) Return On or After: 06/30/24 Reason: Video Visit Additional Notes: Mental health f/u This visit was conducted via video. Location of clinician: clinic Location of patient: home STEM [facility]WYER documented in this encounter Plan of Treatment Not on file documented as of this encounter Visit Diagnoses Diagnosis Moderate episode of recurrent major depressive disorder (HRC)- Primary Stress (HRC) Other psychological or physical stress, not elsewhere classified Adjustment disorder with anxiety (HRC) Adjustment disorder with anxiety Recurrent major depressive disorder, in full remission (HRC) documented in this encounter Care Teams Supervisor Shipping Relationship Specialty Start Date End Date Claudine Woodard MD [address] [place] [address] PCP - General Family Practice 01/06/19 documented as of this encounter
--- OUTSIDE RECORDS SUMMARY | 2024-05-16 11:27 | XMS_ITS | Encounter Summary ---
Author Organization [facility] Address [address] [place] [address] Care Team Providers Care Automatic Equipment Technician Name Role Phone Claudine Woodard MD Primary Care Provider [phone] Encounter Details Date Type Department Care Team (Late st Contact Info) Description 12/08/2015 Correspondence None No Primary/Referring, Phy HME EQUIPMENT ROUGH RIB GRADER TICKET Social History Tobacco Use Types Packs/Day [...] on filedocumented in this encounter Care Teams Automatic Equipment Technician Relationship Specialty Start Date End Date Claudine Woodard MD Count includes the [facility] [place] [address] PCP - General Family Practice 01/06/19 documented as of this encounter
--- OUTSIDE RECORDS SUMMARY | 2024-05-16 11:28 | XMS_ITS | Encounter Summary ---
Author Organization [facility] Address [address] [place] [address] Care Team Providers Care Plastic Parts Fabricator Name Role Phone Claudine Woodard MD Primary Care Provider [phone] Encounter Details Date Type Department Care Team (Late st Contact Info) Description 07/13/2015 Scanned History External to External, [place] [address] [facility]-PROC[facility] NOTES Social History Tobacco Use Types Packs/Day [...] on filedocumented in this encounter Care Teams Plastic Parts Fabricator Relationship Specialty Start Date End Date Claudine Woodard MD [facility] [place] [address] PCP - General Family Practice 01/06/19 documented as of this encounter
--- OUTSIDE RECORDS SUMMARY | 2024-05-16 11:28 | XMS_ITS | Encounter Summary ---
Author Organization [facility] Address [address] [place] [address] Care Team Providers Care Saw Edge Fuser Circular Name Role Phone Claudine Woodard MD Primary Care Provider [phone] Encounter Details Date Type Department Care Team (Late st Contact Info) Description 12/06/2015 Scanned History External to External, [place] [address] [facility]- RECORDS Social History Tobacco Use Types Packs/Day [...] on filedocumented in this encounter Care Teams Saw Edge Fuser Circular Relationship Specialty Start Date End Date Claudine Woodard MD [facility] [place] [address] PCP - General Family Practice 01/06/19 documented as of this encounter
--- OUTSIDE RECORDS SUMMARY | 2024-05-16 11:28 | XMS_ITS | Clinical Summary ---
Author Organization [facility] Address [address] [place] [address] Care Team Providers Care Head Teller Name Role Phone Pcp, No Primary Care [...] load PCOS (polycystic ovarian syndrome) 12/06/2015 Immunizations Immunization Administration Dates Next Due DTaP 11/08/1995, 4,05/16/1991,05/13/1990,11/29 [...] on file Legal Sex Female 8:15 AM WINDOW CASER Gender Identity Not on file Sexual Orientation Not on file Obstetrics History Para Term AB IAB SAB Ectopic Multiple Livin g Live Births 1 Date Outcome GA Total Labor Labor/2nd/3rd Weight Sex Type Anes PTL Criss A1 A5 Name Clin Last Filed Vital Signs Vital Sign Reading Time Taken Comments Blood Pressure 122/81 03/10/2022 11:08 AM WINDOW CASER Pulse 96 03/10/2022 11:08 AM WINDOW CASER Temperature 36.9 C (98.4 F) 03/10/2022 11:08 AM WINDOW CASER Respiratory Rate 16 05/22/2014 1:03 AM CDT Oxygen Saturation 98% 03/10/2022 11: 08 AM WINDOW CASER Inhaled Oxygen Concentration - - Weight 123.7 kg (272 lb 9.6 oz) 023 11:08 AM WINDOW CASER Height 164 cm (5' 4.57) 10/18/2018 11: [...] 09/18/2022, 08/26/2021, 07/22/2020, Additional history exists Influenza Vaccine (#1) 2023 Tetanus booster 09/12/2025 09/13/2015, 03/07, 09/30/2002, Additional history exists Tdap Completed 09/13/2015, 03/07, 11/08/1995, Additional history exists Pneumococcal series for age 6-49 Aged Out No longer eligible based on patient's age to complete this topic Insurance [employer] Care Teams Head Teller Relationship Specialty Start Date End Date Pcp, No . PCP - General 10/08/17
--- OUTSIDE RECORDS SUMMARY | 2024-05-16 11:28 | XMS_ITS | Clinical Summary ---
[facility] Address [address] [place] [address] Care Team Providers Care Chief Transfer And Pumphouse Operator Name Role Phone Claudine Woodard MD Primary Care Provider [phone] Source Comments You are receiving this document [...] for each transition of care or referral. [employer] Allergies Active Allergy Reactions Criticality Noted Date [...] papillomavirus) test positive 10/20/2019 10/12/2023 Overview (10/12/2023): [facility] Review: History: 2020: NILM HPV+ (non [...] Department Care Team Description 04/22/2024 4:00 PM DIRECTOR OF BUSINESS OPERATIONS Telemedicine [facility] [address] [place] [address] Claudine Woodard MD Moderate episode of recurrent major depressive disorder (HRC) (Primary Dx); Stress (HRC); Adjustment disorder with anxiety (HRC); Recurrent major depressive disorder, in full remission (HRC) 03/24/2024 4:00 PM DIRECTOR OF BUSINESS OPERATIONS Telemedicine [facility] [address] [place] [address] Claudine Woodard MD Attention deficit hyperactivity disorder (ADHD), combined type (HRC) (Primary Dx); Class 3 severe obesity with serious comorbidity and body mass index (BMI) of 40.0 to 44.9 in adult, unspecified obesity type (HRC); Moderate episode of recurrent major depressive disorder (HRC); PCOS (polycystic ovarian syndrome) (HRC); Hyperlipidemia, unspecified hyperlipidemia type (HRC); Screening, lipid; Screening for diabetes mellitus from Last 3 Months Immunizations Immunization Administration Dates Next Due DTaP 11/08/1995, 4,05/16/1991,1990,1989 HepB Adult (Engerix-B, 20+ y rs, 3 dose series) 10/10/2005,11/05/2002,09/30/2002 HepB, Unspecified Formulation 10/10/2005, 003,09/30/2002 Hib (PedvaxHIB) 05/16/1991,05/13/1990 Hib, Unspecified Formulation 05/16/1991,05/13/18 91 IPV (Polio) 11/08/1995, 2,05/13/1990,1989 Influenza IIV4 (Quadrivalent ) 0.5mL (58256) 11/13/2019,01/10/2019 MMR 11/05/2002,05/16/1991 Moderna Bivalent 12+ 09/18/2022 Moderna Monovalent Booster 12+ 08/26/2021 PCV20 (Qqtlsvz27) 09/18/2022 PPSV23 (Pneumovax) 01/10/2019 Pfizer Monovalent 12+ Purple Top 07/22/2020,04/2 11/2020 Td 09/30/2002 Td (7+ yrs) 09/30/2002 Tdap 09/13/2015, 3,11/08/1995,1993,05/16/1991,05/13/1990,1989 Family History Medical History Relation Name Comments Other Father was [facility] police guard with issues Depression Mother Cori Olivo Both [...] ANTIBODY, WITH REFLEX Routine 04/05/2023 11:40 AM DIRECTOR OF BUSINESS OPERATIONS Need for hepatitis C screening test HIV 1/2 AG/AB 4TH GEN Routine 10/06/2019 1:53 PM CDT Screening for HIV (human immunodeficiency virus) from Last 3 Months or Most Recently Relevant to Health Maintenance Results * PAP Test (09/10/2023 9:58 AM CDT) Case Report Pap Case: [id number] Authorizing Provider: Claudine Woodard MD Collected: 09/10/2023 0958 Ordering Location: [facility] Received: 09/10/2023 1019 First Screen: SANJUANITA CERON Rescreen: Yocasta Fiore Specimen: Pap Test, Routine, Cervix/Endocervix 10/11/2023 3:54 PM CDT [facility] Pap Specimen Adequacy Satisfactory for evaluation, endocervical/pires sformation zone component present. 10/11/2023 3:54 PM CDT [facility] Pap Interpretation (NILM) Negative for intraepithelial lesion or malignancy. 10/11/2023 3:54 PM CDT [facility] at 1554 CDT Pap Disclaimer The Pap test is a screening test to aid in the detection of cervical and vaginal cancers and their precursor lesions. It is not a diagnostic procedure and should not be used as the sole means of detecting malignancy. Both false-positive and false-negative results may occur. 10/11/2023 3:54 PM CDT [facility] Gross Description The specimen is received in SurePath fixative and properly labeled. 1 Pap-stained SurePath slide is prepared. 10/11/2023 3:54 PM CDT [facility] Embedded Images 3:54 PM CDT [facility] Other Specimen Type ENTIRE ENDOCERVIX / Unknown 09/10/2023 9:58 AM CDT 09/10/2023 10:19 AM CDT Comment:LMP: No LMP recorded . (Menstrual status: Irregular). Claudine Woodard MD LAB PATHOLOGY Final Resul t Performing Organization Address [facility] Phone Number [facility] [address] [place] [address] * Hepatitis C Antibody, with Reflex (04/05/2023 11:40 AM DIRECTOR OF BUSINESS OPERATIONS) Pathologist [facility] Hepatitis C Antibody Negative (Non Reactive) Negative (Non Reactive) 04/05/2023 4:38 PM DIRECTOR OF BUSINESS OPERATIONS [facility] Comment:Antibodies to HCV no t detected. Does not exclude the possiblity of exposure to HCV. Blood Venipuncture / Unknown 04/05/2023 11:40 AM DIRECTOR OF BUSINESS OPERATIONS 04/05/2023 11:40 AM DIRECTOR OF BUSINESS OPERATIONS Claudine Woodard MD LAB_1 Final Resul t Performing Organization Address [facility] Phone Number [facility] [address] [place] [address] * HIV 1/2 Ag/Ab 4th Generation (10/06/2019 1:53 PM CDT) HIV 1/2 Antigen/Antib analy (4th generation) Negative (Non Reactive) Negative (Non Reactive) 10/06/2019 6:36 PM CDT [facility] Comment:HIV-1 p24 Antigen an d HIV-1/HIV-2 Antibody not detected Blood Venipuncture / Unknown 10/06/2019 1:53 PM CDT 10/06/2019 1:53 PM CDT Claudine Woodard MD LAB_1 Final Resul t Performing Organization Address [facility] de Phone Number [facility] [address] [place], [place] [address] from Last 3 Months or Most Recently Relevant to Health Maintenance Insurance [employer] SELF INSURED SELF INSURED ERLINDA VILLALBA Advance Directives * Full Code (Latest Code Status on File) Date Activated Date Inactivated Comments 12/06/2015 8:35 AM 12/08/2015 4:52 PM Care Teams Chief Transfer And Pumphouse Operator Relationship Specialty Start Date End Date Claudine Woodard MD [address] [place] [address] PCP - General Family Practice 01/06/19
--- OUTSIDE RECORDS SUMMARY | 2024-05-16 11:28 | XMS_ITS | Clinical Summary ---
Author Organization [facility] Address [address] [place] [address]. [place] [address] Care Team Providers Care Tare Weigher Name Role Phone [facility] Primary [...] Unspecified 05/16/1991,05/13/1990 HepB, Unspecified 10/10/2005,11/05/2002,10/01/19 03 MMR (MMRII) 11/05/2002,05/16/1991 Poliovirus, inactivated (IPV) 11/08/1995, 992,05/13/1990,1989 TDAP (Adacel,Boostrix) 04/03/2012 Td,adult,historic,unspecified 09/30/2002 Social History Tobacco Use Types Packs/Day Years Used Date Smoking Tobacco: Never Assessed Adolescent Education Answer Date Record ed Getting School Help Needed Not on file 12/17 Comments No Sex and Gender Information Value Date Recorded Sex Assigned at Not on file Legal Sex Female 4:33 AM FAMILY DINNER SERVICE SPECIALIST Gender Identity Not on file Sexual Orientation [...] of Treatment Not on file Care Teams Tare Weigher Relationship Specialty Start Date End Date [facility], [facility] [address] [place] [address] PCP - General 08/02/22
--- NOTE | 2024-05-16 12:00 | PC.SOCIAL ---
Addendum entered by SALAZAR Gupta 05/16/24 12:50: Received call from [facility] Child [employer] worker, Lakhwinder Daily, confirming that he is making arrangements for the care of pt's dtr and will contact the ED nurse to discuss timing of when he can talk to pt about the plans. cargo station worker provided ED nurse phone number for Lakhwinder to call. Addendum entered by SALAZAR Gupta 05/16/24 12:16: Called [facility] Child [employer] [phone] and spoke with Sheri who confirmed they are aware of pt being brought to the hospital. There is already a current open child protection case through [facility], worker assigned is Lakhwinder Daily [phone]. cargo station worker confirmed with Sheri that pt is not being discharged from the hospital and that dtr will need care after school. Sheri confirmed that Child Protection will take care of arrangements for this child hospital staff does not need to and should not work on this at all. When placement is found for this pt, the child protection worker, Lakhwinder, should be called and a message left with the information about where the pt is being sent. Original Note: Social work: cargo station worker was informed pt was brought in by [place] Police, Musa Traore [phone]. PT has an 8 year old daughter currently at school who will need to be cared for when school ends. Per RN, police requested to be notified with decision on whether mother would be staying at the hospital or discharged as they would follow up with needs of the child. Called Sergeant Musa Traore and left message reqarding plan for pt not to be discharged today. cargo station worker requested Sergeant Traore call either social economist or ED nurse to clarify their role in making sure child will have care following school. Awaiting call back.
--- NOTE | 2024-05-16 12:02 | ED_ITS ---
HPI - Psych General Chief Complaint: Psychiatric Problem/Disorder Stated Complaint: Mental Health Time Seen by Provider: 05/16/24 11:26 History of Present Illness HPI Narrative: This 33-year-old female is brought in by police for psychiatric evaluation. She was smashing windows of a vacant department and made comments that somewhat to just shoot her and that she wanted to kill her ex . Apparently she is in the process of a divorce. She does have a child currently in school. She tells me that she has PTSD and has been taking her regular medicines. She also uses cannabis but denies any other street drugs or alcohol. She denies seeing or hearing things that are not real. She is telling me that she needs to get out of her apartment today and that she wants me to sign disability papers so that this can happen. She does appear somewhat agitated. She was destructive of property and police brought her in but she is not under arrest. Related Data Home Medications ?Medication ?Instructions ?Recorded ?Confirmed dextroamphetamine-amphetamine ER 1 cap PO DAILY 05/12/23 05/16/24 30 mg 24hr capsule,extend release metformin 500 mg tablet,extended 2,000 mg PO QDAY 05/12/23 05/16/24 release 24 hr sertraline 100 mg tablet 150 mg PO 05/12/23 05/12/23 Allergies Allergy/AdvReac Type Severity Reaction Status Date / Time No Known Drug Allergies Allergy Verified 05/16/24 11:37 Review of Systems Status of ROS: Reports: 10 or more systems reviewed and unremarkable except as noted in History and below Narrative: Constitutional: No fevers, no weight gain or loss. Eyes: No discharge. No vision changes. HENT: No congestion, no sore throat, no ear pain. Cardiovascular: No chest pain, no palpitations. Respiratory: No shortness of breath, no wheezes, no cough. Gastrointestinal: No abdominal pain, no vomiting, no diarrhea. Genitourinary: No dysuria, no hematuria. Musculoskeletal: Normal range of motion. Skin: No rashes, no pruritis. Neurological: No dizziness, weakness, sensory change, speech change. Endo/Heme/Allergies: No bruising or bleeding. No polydipsia. Pysch: She made a comment to police that someone should just shoot her. She also commented that she wanted to kill her ex but states to me that she would never do that and has no means by which she would be able to do so. All other systems reviewed and are negative. PFSH PFS Social History Smoking Status: Smoker, status unknown How often do you have a drink containing alcohol: never AUDIT-C Alcohol total score: 0 Non-prescribed substance use: denies use Exam Narrative: Exam Narrative: Constitutional: Well-developed, well-nourished, no acute distress. HEENT: Normocephalic, atraumatic. Neck: Normal range of motion. Nontender. Supple. Heart: Intact distal pulses. Lungs: No chest discomfort. No wheezes, rhonchi, or rales. Abdomen: Nontender. Back: Normal range of motion. Extremities: Normal range of motion. No injury. Skin: Intact. No rash. Warm. No erythema or pallor. Neurologic: No altered sensation. No weakness. Alert and oriented. Psychiatric: She made a suicidal comment and also a homicidal comment. She denies any homicidality to me. Nursing notes and vitals signs are reviewed. Const: Vital Signs, click to edit/add: Vital Signs - 24 hr 05/16/24 11:26 Temperature 98.7 F Pulse Rate [Right Pulse Oximeter] 112 H Respiratory Rate 18 Blood Pressure [Ri ght Upper Arm] 134/97 H Pulse Oximetry 100 Oxygen Delivery Me thod Room Air Course Vital Signs Vital signs: Initial Vital Signs Temperature 98.7 F 05/16/24 11:26 Temperature Source Temporal Artery Scan 05/16/24 11:26 Pulse Rate 112 H 05/16/24 11:26 Pulse Rhythm Regular 05/16/24 11:26 Pulse Strength 3+ Normal 05/16/24 11:26 Respiratory Rate 18 05/16/24 11:26 Blood Pressure 134/97 H 05/16/24 11:26 Blood Pressure Mean 109 H 05/16/24 11:26 Blood Pressure Position Sitting 05/16/24 11:26 Pulse Oximetry 100 05/16/24 11:26 Oxygen Delivery Method Room Air 05/16/24 11:26 Vital Signs Temperature 98.7 F 05/16/24 11:26 Pulse Rate 112 H 05/16/24 11:26 Respiratory Rate 18 05/16/24 11:26 Blood Pressure 134/97 H 05/16/24 11:26 Pulse Oximetry 100 05/16/24 11:26 Oxygen Delivery Method Room Air 05/16/24 11:26 Temperature 98.7 F 05/16/24 11:26 Pulse Rate 112 H 05/16/24 11:26 Respiratory Rate 18 05/16/24 11:26 Blood Pressure 134/97 H 05/16/24 11:26 Pulse Oximetry 100 05/16/24 11:26 Oxygen Delivery Method Room Air 05/16/24 11:26 Medications Administered Medications: Generic Name Dose Route Start Last Admin Trade Name Freq PRN Reason Stop Dose Admin Nicotine Polacrilex 4 mg 05/16/24 13:03 05/16/24 17:05 Nicotine 4 Mg Gum BUCCAL 4 mg Q1H PRN Administration Discontinued Medications Generic Name Dose Route Start Last Admin Trade Name Freq PRN Reason Stop Dose Admin Lorazepam 1 mg 05/16/24 14:39 05/16/24 14:48 Lorazepam 1 Mg Tablet PO 05/16/24 14:40 1 mg ONCE ONE Administration MDM - Psych MDM Narrative Medical decision making narrative: This patient comes in by escort of police but is not under arrest. She was destructive of property and is convinced that she needs to get out of her apartment and has been in a couple times previously here with strong conviction that her ex is poisoning her and her daughter. A mental health assessment was completed and recommendations are made for inpatient evaluation treatment. The patient came in requesting that I a signed disability papers for her so that she can get out of her apartment. I explained that I would not do that but explained also that recommendation is for her to go into an inpatient setting at which time arrangements can be made for a different place for her. [facility] and they did make arrangements for the patient's daughter during this time. The patient was rather agitated upon hearing about this plan but seeing that it is a way for her to attend to her needs she has now been pleasant and cooperative. She did receive a tablet of Ativan 1 mg. While awaiting for placement toward the end of my shift she also received an oral dose of Zyprexa 10 mg to help her with sleep. The patient is medically stable to be transferred to an inpatient psychiatric facility. Lab Data Labs: Lab Results 05/16/24 05/16/24 05/16/24 Range/Units 12:10 14:09 15:47 WBC 10.22 (4.50-11.00) K/uL RBC 4.51 (4.00-5.20) m/uL Hgb 13.7 (12.0-16.0) gm/dL Hct 41.8 (33.0-51.0) % MCV 93 (80-100) fL MCH 30 (26-34) pg MCHC 33 (32-36) gm/dL RDW Coeff of Renetta 12.4 (11.5-15.5) % Plt Count 306 (140-440) K/uL Neut % (Auto) 77.6 H (42.0-72.0) % Lymph % (Auto) 16.1 L (20-44) % [place] % (Auto) 5.0 (0.0-11.0) % Eos % (Auto) 0.7 (0.0-7.0) % Baso % (Auto) 0.5 (0.0-3.0) % Neut # (Auto) 7.90 H (1.7-7.0) K/uL Lymph # (Auto) 1.60 (0.90-2.90) K/uL [place] # (Auto) 0.50 (0.00-0.90) K/UL Eos # (Auto) 0.07 (0.00-0.50) K/uL Baso # (Auto) 0.05 (0.00-0.30) K/uL Abs Immat Gran (auto) 0.01 (0.00-0.30) K/uL Imm/Tot Granulo (auto) 0.1 % Sodium 139 (135-149) mmol/L Potassium 3.4 L (3.6-5.1) mmol/L Chloride 106 (96-114) mmol/L Carbon Dioxide 23 (20-32) mmol/L Anion Gap 10 (7-15) mEq/L BUN 13 (5-24) mg/dL Creatinine 0.7 (0.5-1.5) mg/dL Estimated GFR 116 ml/min Glucose 103 (60-115) mg/dL Calcium 9.4 (8.4-10.6) mg/dL TSH 1.740 (0.270-4.20) uIU/mL Salicylates < 1.0 L (1.0-10) mg/dL Urine Opiates Screen Negative (Negative) Ur Oxycodone Screen Negative (Negative) Urine Methadone Screen Negative (Negative) Acetaminophen < 10.0 L (10.0-30.0) ug/mL Ur Barbiturates Screen Negative (Negative) U Tricyclic Antidepress Negative (Negative) Ur Phencyclidine Scrn Negative (Negative) Ur Amphetamines Screen POSITIVE A (Negative) U Methamphetamines Scrn Negative (Negative) U Benzodiazepines Scrn Negative (Negative) Urine Cocaine Screen Negative (Negative) U Marijuana (THC) Screen POSITIVE A (Negative) Ur Drug Screen Comment See Note Ethyl Alcohol < 0.01 L (0.01-0.03) % SARS-CoV-2 (PCR) Negative SARS-CoV-2 (Negative) Influenza Type A (PCR) Negative PCR FLU A (Negative) Influenza Type B (PCR) Negative PCR FLU B (Negative) RSV (PCR) Negative PCR RSV (Negative) Lab Acknowledgement Test Added Discharge Plan Discharge Clinical Impression: Suicidal ideation Condition: Unchanged Prescriptions: No Action dextroamphetamine-amphetamine 30 mg capsule,extended release 24hr 1 cap PO DAILY metformin 500 mg tablet extended release 24 hr 2,000 mg PO QDAY sertraline 100 mg tablet 150 mg PO Follow Up/Referrals: Gabriella Mobley PA-C [Primary Care Provider] -
[2024-05-16 13:25] LABS: Amphetamine Screen Urine POSITIVE (Negative); Barbiturate Screen Urine Negative (Negative); Benzodiazepines Screen Urine Negative (Negative); Cannabinoid Screen Urine POSITIVE (Negative); Cocaine Screen Urine Negative (Negative); Methadone Screen Urine Negative (Negative); Methamphetamines Screen Urine Negative (Negative); Opiate Screen Urine Negative (Negative); Oxycodone Screen Urine Negative (Negative); Phencyclidine Screen Urine Negative (Negative); Tricyclic Antidepressant Urine Negative (Negative)
[2024-05-16] MEDS: NICOTINE 4 MG GUM BUCCAL ×2 (14:07→17:05)
[2024-05-16 14:26] LABS: Basophils Absolute Auto 0.05 K/uL (0.00-0.30); Basophils Percent Auto 0.5 % (0.0-3.0); Eosinophils Absolute Auto 0.07 K/uL (0.00-0.50); Eosinophils Percent Auto 0.7 % (0.0-7.0); Hematocrit* 41.8 % (33.0-51.0); Hemoglobin* 13.7 gm/dL (12.0-16.0); Immature Granulocytes Abs Auto 0.01 K/uL (0.00-0.30); Immature Granulocytes Pct Auto 0.1 %; Lymphocytes Percent Auto 16.1 % (20-44); Mean Corpuscular HGB Conc 33 gm/dL (32-36); Mean Corpuscular Hemoglobin 30 pg (26-34); Mean Corpuscular Volume 93 fL (80-100); Neutrophils Percent Auto 77.6 % (42.0-72.0); Platelet Count* 306 K/uL (140-440); RDW Coefficient of Variation % 12.4 % (11.5-15.5); Red Blood Count* 4.51 m/uL (4.00-5.20); White Blood Count* 10.22 K/uL (4.50-11.00)
[2024-05-16 14:30] LABS: Chloride* 106 mmol/L (96-114)
[2024-05-16 14:31] LABS: Potassium* 3.4 mmol/L (3.6-5.1); Sodium* 139 mmol/L (135-149)
[2024-05-16 14:33] LABS: Anion Gap 10 mEq/L (7-15); Blood Urea Nitrogen* 13 mg/dL (5-24); Carbon Dioxide* 23 mmol/L (20-32); Creatinine* 0.7 mg/dL (0.5-1.5); Estimated Glomerular Filt Rate 116 ml/min; Slide Review Reflex No
[2024-05-16 14:34] LABS: Acetaminophen* < 10.0 ug/mL (10.0-30.0); Calcium* 9.4 mg/dL (8.4-10.6); Glucose* 103 mg/dL (60-115)
[2024-05-16 14:35] LABS: Salicylate* < 1.0 mg/dL (1.0-10)
[2024-05-16] MEDS: LORazepam 1 MG TABLET PO (14:48)
--- OUTSIDE RECORDS SUMMARY | 2024-05-16 14:52 | XMS_ITS | Encounter Summary ---
Author Organization [facility] Address [address] [place] [address] Care Team Providers Care Geochemical Laboratory Technician Name Role Phone Claudine Woodard MD Primary Care Provider [phone] Encounter Details Date Type Department Care Team (Late st Contact Info) Description 12/06/2015 Scanned History External to External, [place] [address] [facility] [place]- RECORDS Social History Tobacco Use Types Packs/Day [...] on filedocumented in this encounter Care Teams Geochemical Laboratory Technician Relationship Specialty Start Date End Date Claudine Woodard MD [facility] [place] [address] PCP - General Family Practice 01/06/19 documented as of this encounter
--- OUTSIDE RECORDS SUMMARY | 2024-05-16 14:52 | XMS_ITS | Encounter Summary ---
Author Organization [facility] Address [address] [place] [address] Care Team Providers Care Certified Legal Investigator Name Role Phone Claudine Woodard MD Primary Care Provider [phone] Encounter Details Date Type Department Care Team (Late st Contact Info) Description 12/08/2015 Correspondence None No Primary/Referring, Phy HME EQUIPMENT FACTORY ENGINEER TICKET Social History Tobacco Use Types Packs/Day [...] on filedocumented in this encounter Care Teams Certified Legal Investigator Relationship Specialty Start Date End Date Claudine Woodard MD [facility] [place] [address] PCP - General Family Practice 01/06/19 documented as of this encounter
--- OUTSIDE RECORDS SUMMARY | 2024-05-16 14:52 | XMS_ITS | Encounter Summary ---
Author Organization [facility] Address [address] [place] [address] Care Team Providers Care Information Engineer Name Role Phone Claudine Woodard MD Primary Care Provider [phone] Reason for Visit * Reason Comments Follow-up Mental health Encounter Details Date Type Department Care Team (Late st Contact Info) Description 04/22/2024 4:00 PM FIRE RANGER Telemedicine [facility] [address] [place] [address] [place] [phone] Claudine Woodard MD [address] [place] [address] [place] [phone] Moderate episode of recurrent major depressive disorder [...] on sertraline to 50 mg daily. Encouraged Marquette to start therapy as soon as reasonable. - sertraline (ZOLOFT) 100 MG tablet; Take 1 Tablet (100 mg) by mouth daily. Follow up: Quick Schedule Follow Up Visits Return With: Me (Clinician) Return On or After: 06/30/24 Reason: Video Visit Additional Notes: Mental health f/u This visit was conducted via video. Location of clinician: clinic Location of patient: home RANGER documented in this encounter Plan of Treatment Not on file documented as of this encounter Visit Diagnoses Diagnosis Moderate episode of recurrent major depressive disorder (HRC)- Primary Stress (HRC) Other psychological or physical stress, not elsewhere classified Adjustment disorder with anxiety (HRC) Adjustment disorder with anxiety Recurrent major depressive disorder, in full remission (HRC) documented in this encounter Care Teams Information Engineer Relationship Specialty Start Date End Date Claudine Woodard MD [address] [place] [address] PCP - General Family Practice 01/06/19 documented as of this encounter
--- OUTSIDE RECORDS SUMMARY | 2024-05-16 14:53 | XMS_ITS | Clinical Summary ---
[facility] Organization [facility] Address [address] [place] [address] Care Team Providers Care Biological Technical Officer Name Role Phone Claudine Woodard MD Primary Care Provider [phone] Source Comments You are receiving this document [...] for each transition of care or referral. Network Intelligence Allergies Active Allergy Reactions Criticality Noted Date [...] papillomavirus) test positive 10/20/2019 10/12/2023 Overview (10/12/2023): [facility] Review: History: 2020: NILM HPV+ (non [...] Department Care Team Description 04/22/2024 4:00 PM SIGNAL CIRCUIT DESIGNER Telemedicine [facility] [address] [place] [address] Claudine Woodard MD Moderate episode of recurrent major depressive disorder (HRC) (Primary Dx); Stress (HRC); Adjustment disorder with anxiety (HRC); Recurrent major depressive disorder, in full remission (HRC) 03/24/2024 4:00 PM SIGNAL CIRCUIT DESIGNER Telemedicine [facility] [address] [place] [address] Claudine Woodard MD Attention deficit hyperactivity disorder [...] 11/08/1995, 2,05/13/1990,1989 Influenza IIV4 (Quadrivalent ) 0.5mL (77339) 11/13/2019,01/10/2019 MMR 11/05/2002,05/16/1991 Moderna Bivalent 12+ 09/18/2022 Moderna Monovalent Booster 12+ 08/26/2021 PCV20 ([id number]) 09/18/2022 PPSV23 (Pneumovax) 01/10/2019 Pfizer Monovalent 12+ Purple Top 07/22/2020,04/2 11/2020 Td 09/30/2002 Td (7+ yrs) 09/30/2002 Tdap 09/13/2015, 3,11/08/1995,1993,05/16/1991,05/13/1990,1989 Family History Medical History Relation Name Comments Other Father was [employer] policeman with issues Depression Mother Cori Olivo Both [...] ANTIBODY, WITH REFLEX Routine 04/05/2023 11:40 AM SIGNAL CIRCUIT DESIGNER Need for hepatitis C screening test HIV 1/2 AG/AB 4TH GEN Routine 10/06/2019 1:53 PM CDT Screening for HIV (human immunodeficiency virus) from Last 3 Months or Most Recently Relevant to Health Maintenance Results * PAP Test (09/10/2023 9:58 AM CDT) Case Report Pap Case: [id number] Authorizing Provider: Claudine Woodard MD Collected: 09/10/2023 0958 Ordering Location: [facility] Received: 09/10/2023 1019 First Screen: SANJUANITA CERON Rescreen: Yocasta Fiore Specimen: Pap Test, Routine, Cervix/Endocervix 10/11/2023 3:54 PM CDT [facility] Pap Specimen Adequacy Satisfactory for evaluation, endocervical/pires sformation zone component present. 10/11/2023 3:54 PM CDT [facility] Pap Interpretation (NILM) Negative for intraepithelial lesion or malignancy. 10/11/2023 3:54 PM CDT [facility] at 1554 CDT Pap Disclaimer The Pap test is a screening test to aid in the detection of cervical and vaginal cancers and their precursor lesions. It is not a diagnostic procedure and should not be used as the sole means of detecting malignancy. Both false-positive and false-negative results may occur. 10/11/2023 3:54 PM CDT [facility] Gross Description The specimen is received in SurePath fixative and properly labeled. 1 Pap-stained SurePath slide is prepared. 10/11/2023 3:54 PM CDT [facility] Embedded Images 3:54 PM CDT [facility] Other Specimen Type ENTIRE ENDOCERVIX / Unknown 09/10/2023 9:58 AM CDT 09/10/2023 10:19 AM CDT Comment:LMP: No LMP recorded . (Menstrual status: Irregular). Claudine Woodard MD LAB PATHOLOGY Final Resul t Performing Organization Address [facility] Phone Number [facility] [address] [place] [address] * Hepatitis C Antibody, with Reflex (04/05/2023 11:40 AM SIGNAL CIRCUIT DESIGNER) Pathologist [facility] Hepatitis C Antibody Negative (Non Reactive) Negative (Non Reactive) 04/05/2023 4:38 PM SIGNAL CIRCUIT DESIGNER [facility] Comment:Antibodies to HCV no t detected. Does not exclude the possiblity of exposure to HCV. Blood Venipuncture / Unknown 04/05/2023 11:40 AM SIGNAL CIRCUIT DESIGNER 04/05/2023 11:40 AM SIGNAL CIRCUIT DESIGNER Claudine Woodard MD LAB_1 Final Resul t Performing Organization Address [facility] Phone Number [facility] [address] [place] [address] * HIV 1/2 Ag/Ab 4th Generation (10/06/2019 1:53 PM CDT) HIV 1/2 Antigen/Antib analy (4th generation) Negative (Non Reactive) Negative (Non Reactive) 10/06/2019 6:36 PM CDT [facility] Comment:HIV-1 p24 Antigen an d HIV-1/HIV-2 Antibody not detected Blood Venipuncture / Unknown 10/06/2019 1:53 PM CDT 10/06/2019 1:53 PM CDT Claudine Woodard MD LAB_1 Final Resul t Performing Organization Address [facility] de Phone Number [facility] [address] [place], [place] [address] from Last 3 Months or Most Recently Relevant to Health Maintenance Insurance [employer] SELF INSURED SELF INSURED ERLINDA VILLALBA Advance Directives * Full Code (Latest Code Status on File) Date Activated Date Inactivated Comments 12/06/2015 8:35 AM 12/08/2015 4:52 PM Care Teams Biological Technical Officer Relationship Specialty Start Date End Date Claudine Woodard MD [address] [place] [address] PCP - General Family Practice 01/06/19
--- OUTSIDE RECORDS SUMMARY | 2024-05-16 14:53 | XMS_ITS | Clinical Summary ---
Author Organization [facility] Address [address] [place] [address] Care Team Providers Care Carbon Blocks Press Operator Name Role Phone Pcp, No Primary Care [...] on file Legal Sex Female 8:15 AM RIDING DOUBLE Gender Identity Not on file Sexual Orientation Not on file Obstetrics History Para Term AB IAB SAB Ectopic Multiple Livin g Live Births 1 Date Outcome GA Total Labor Labor/2nd/3rd Weight Sex Type Anes PTL Criss A1 A5 Name Clin Last Filed Vital Signs Vital Sign Reading Time Taken Comments Blood Pressure 122/81 03/10/2022 11:08 AM RIDING DOUBLE Pulse 96 03/10/2022 11:08 AM RIDING DOUBLE Temperature 36.9 C (98.4 F) 03/10/2022 11:08 AM RIDING DOUBLE Respiratory Rate 16 05/22/2014 1:03 AM CDT Oxygen Saturation 98% 03/10/2022 11: 08 AM RIDING DOUBLE Inhaled Oxygen Concentration - - Weight 123.7 kg (272 lb 9.6 oz) 023 11:08 AM RIDING DOUBLE Height 164 cm (5' 4.57) 10/18/2018 11: [...] Insurance [employer] Care Teams Carbon Blocks Press Operator Relationship Specialty Start Date End Date Pcp, No . PCP - General 10/08/17
--- OUTSIDE RECORDS SUMMARY | 2024-05-16 14:53 | XMS_ITS | Encounter Summary ---
Author Organization [facility] Address [address] [place] [address] Care Team Providers Care Processing Specialist Name Role Phone Claudine Woodard MD Primary Care Provider [phone] Encounter Details Date Type Department Care Team (Late st Contact Info) Description 07/13/2015 Scanned History External to External, [place] [address] [facility]-PROCEDURE NOTES Social History Tobacco Use Types [...] on filedocumented in this encounter Care Teams Processing Specialist Relationship Specialty Start Date End Date Claudine Woodard MD [facility] [place] [address] PCP - General Family Practice 01/06/19 documented as of this encounter
--- OUTSIDE RECORDS SUMMARY | 2024-05-16 14:53 | XMS_ITS | Clinical Summary ---
Author Organization [facility] Address [address] [place] [address]. [place] [address] Care Team Providers Care Rug Backing Stenciler Name Role Phone [facility] [place] Primary [...] on file Legal Sex Female 4:33 AM SENIOR APPLICATION PROGRAMMER Gender Identity Not on file Sexual Orientation [...] of Treatment Not on file Care Teams Rug Backing Stenciler Relationship Specialty Start Date End Date [facility] [address] [place] [address] PCP - General 08/02/22
[2024-05-16 15:18] LABS: PCR FLU A Negative PCR FLU A (Negative); PCR FLU B Negative PCR FLU B (Negative); PCR RSV Negative PCR RSV (Negative); SARS PCR* Negative SARS-CoV-2 (Negative)
[2024-05-16 16:01] LABS: Ethanol* < 0.01 % (0.01-0.03)
[2024-05-16] MEDS: OLANZapine 5 MG TAB.RAPDIS 10 MG PO (19:50)
[2024-05-17] MEDS: NICOTINE 4 MG GUM BUCCAL (10:46)
[2024-05-17 11:28] VITALS: BP 130/89; PULSE 100; RESP 18; TEMP 36.6
== END 2024-05-17 11:29 | disposition home or self-care (01) ==
PROVIDERS: Emergency Provider Emergency Medicine Emergency Medical Services; PCP Physician Assistant Medical
DX: R45.851 Suicidal ideations (principal)
CPT/HCPCS: 36415; 80048; 80143; 80179; 80306; 82077; 84443; 85025; 87637; 99284; 99285; A9270

== ENCOUNTER 2024-05-17 10:54 | Outpatient (CLI) | payer MEDICAID, SELFPAY | END 2024-05-17 10:55 | disposition home or self-care (01) | LOC: AMB 05-19 10:06 | PROVIDERS: PCP Physician Assistant Medical; Visit Provider Emergency Medicine | DX: R45.851 Suicidal ideations (principal); R45.850 Homicidal ideations | CPT/HCPCS: A0425; A0428 ==

== ENCOUNTER 2024-06-04 11:20 | Outpatient (CLI) | payer MEDICAID, SELFPAY | END 2024-06-04 11:21 | disposition home or self-care (01) | LOC: NFLDREF 11:21 | PROVIDERS: PCP Physician Assistant Medical; Visit Provider Registered Nurse | DX: N92.0 Excessive and frequent menstruation with regular cycle (principal) | CPT/HCPCS: 84443 ==

== ENCOUNTER 2024-06-09 11:16 | Outpatient (CLI) | payer MEDICAID, SELFPAY ==
--- NOTE | 2024-06-09 11:30 | CRLHL7_ITS ---
For Patients: As a result of the Century Cures Act, medical imaging exams and procedure reports are released immediately into your electronic medical record. You may view this report before your referring provider. If you have questions, please contact your health care provider. INDICATION: Excessive and frequent menstruation COMPARISON: none TECHNIQUE: 2D oneal scale and color Doppler images were acquired of the pelvis using a transabdominal and transvaginal approach. FINDINGS: Sonographic images demonstrate a normal size and smooth outer contour of the uterus. Uterus measures 9.8 cm in length by 4.5 cm in AP diameter by 5.7 cm in transverse dimension. The myometrium has a mildly heterogeneous echotexture. The endometrial lining measures 4.0 mm in composite thickness. The right ovary measures 2.9 x 2.4 x 2.3 cm in size and the left ovary measures 3.9 x 2.4 x 2.5 cm. The ovaries demonstrate normal arterial and venous blood flow on color Doppler analysis. There are no suspicious fluid collections within the cul-de-sac. IMPRESSION: Endometrial thickness 4 millimeters. No endometrial fluid. No uterine fibroid. Dictated by Efrain Fritz MD @ 06/09/2024 1:12:45 PM (Electronically Signed)
== END 2024-06-09 11:17 | disposition home or self-care (01) ==
LOC: US 11:17
PROVIDERS: PCP Physician Assistant Medical; Visit Provider Registered Nurse
DX: N92.0 Excessive and frequent menstruation with regular cycle (principal); R93.89 Abnormal findings on diagnostic imaging of other specified body structures
CPT/HCPCS: 76830; 76856

== ENCOUNTER 2024-07-13 12:51 | Outpatient (CLI) | payer MEDICAID, SELFPAY | END 2024-07-13 12:52 | disposition home or self-care (01) | LOC: AMB 07-14 15:05 | PROVIDERS: PCP Physician Assistant Medical; Visit Provider Family Medicine | DX: R45.851 Suicidal ideations (principal) | CPT/HCPCS: A0425; A0427 ==

== ENCOUNTER 2024-07-13 13:22 | Emergency (ER) | payer MEDICAID, SELFPAY ==
--- OUTSIDE RECORDS SUMMARY | 2024-07-13 13:25 | XMS_ITS | Clinical Summary ---
Author Organization [facility] Address [address] [place] [address] Care Team Providers Care Edge Beader Name Role Phone Pcp, No Primary Care [...] with meals. 112 tablet 10/18/2018 Active sertraline 100 mg tabletIndicatio ns:Severe episode of recurrent major depressive disorder, with psychotic features (HC) Take 1 Tablet (100 mg) by mouth once daily. 90 Tablet 1 06/04/2024 Active metFORMIN 500 mg Extended-Releas e tabletIndicatio ns:PCOS (polycystic ovarian syndrome) Take 2 Tablets (1,000 mg) by mouth once daily with evening meal. 180 Tablet 1 06/04/2024 Active Active Problems Problem Noted Date Diagnosed Date Dysmenorrhea 09/18/2022 Gender dysphoria in adult 09/18/2022 Hyperlipidemia 12/12/2021 Posttraumatic stress disorder 10/06/2019 Vapes nicotine containing substance 03/20/2019 Overview (06/04/2024): Not ready to quit at this time. Social anxiety disorder 01/10/2019 Obesity 10/16/2017 Overview (06/04/2024): Created by Conversion Created by Conversion Attention deficit hyperactivity disorder (ADHD) 10/16/2017 Overview (06/04/2024): Overview: Created by Conversion Created by Conversion Insomnia 10/16/2017 Overview (10/16/2017): Overview: Created by Conversion Major depression, recurrent 10/16/2017 Overview (06/04/2024): Overview: Created by Conversion Replacement Utility updated for latest IMO load Created by Conversion Replacement Utility updated for latest IMO load Bicornuate uterus 12/06/2015 Overview (06/04/2024): Overview: Not confirmed Septate uterus PCOS (polycystic ovarian syndrome) 12/06/2015 Resolved Problems Problem Noted Date Diagnosed Date Resolved Date Situational depression 10/16/201706/04 Encounters Date Type Department Care Team Description 07/04/2024 Patient Outreach [facility] Care Management - Care Management Navigation/[facility] [address] [place] [address] [place] [facility] 06/05/2024 Lab Requisition [facility] [phone] Rita Owen NP 06/04/2024 2:15 PM CDT Office Visit [facility] [address] [place] [address] Ronn Murguia MD Referral (psychiatry referral ); Establish Care 06/04/2024 Telephone [facility] [address] [place] [address] Ronn Murguia MD medication transfer (metFORMIN, sertraline) 06/04/2024 Travel from Last 3 Months Immunizations Immunization Administration [...] e alcohol) PHQ-2 Answer Date Recorded PHQ-2 TOTAL SCORE 2 06/04/2024 Social Connections Answer Date Recorded Do you often feel lonely or isolated from those around you? 4 06/04/2024 Financial Resource Strain Answer Date R ecorded Difficulty of Paying Living Expenses Not on file 06/04/2024 Difficulty of Paying Living Expenses 3 06/04/2024 Food Insecurity Answer Date Recorded Do you worry your food will run out before you are able to buy more? 1 06/04/2024 Transportation Needs Answer Date Record ed Does lack of transportation keep you from medica l appointments? 2 06/04/2024 Does lack of transportation keep you from work, meetings or getting things that you need? 2 06/04/2024 Housing Stability Answer Date Recorded What is your housing situation today? 1 06/04/2024 Utilities Answer Date Recorded Do you have trouble paying f or utilities (for example, heat, electricity, water, phone)? 2 06/04/2024 Comments No Sex and Gender Information Value Date Recorded Sex Assigned at Not on file Legal Sex Female 8:15 AM SLATE SPLITTER Gender Identity Not on file Sexual Orientation Not on file Obstetrics History Para Term AB IAB SAB Ectopic Multiple Livin g Live Births 1 Date Outcome GA Total Labor Labor/2nd/3rd Weight Sex Type Anes PTL Criss A1 A5 Name Clin Last Filed Vital Signs Vital Sign Reading Time Taken Comments Blood Pressure 110/76 06/04/2024 2:06 PM CDT Pulse 94 06/04/2024 2:06 PM CDT Temperature 36.9 C (98.4 F) 03/10/2022 11:08 AM SLATE SPLITTER Respiratory Rate 16 05/22/2014 1:03 AM CDT Oxygen Saturation 98% 06/04/2024 2:06 PM CDT Inhaled Oxygen Concentration - - Weight 106.5 kg (234 lb 11.2 oz) 06/04/2024 2:06 PM CDT Height 164 cm (5' 4.57) 10/18/2018 11: 20 AM CDT Body Mass Index 39.58 10/18/2018 11:20 AM CDT Plan of Treatment Upcoming Encounters Date Type Department Care Team (Late st Contact Info) Description 07/29/2024 7:30 AM CDT Office Visit [facility] [address] [place] [address] Abdullahi Jackson MD [address] [place] [address] Health Maintenance Due Date Last Done Comments HIV for age 15-65 2004 Hepatitis C screening for age 18-79 09/12/2007 Pap test for age 21-65 2010 BMI (ht and wt on same day) for age 18+ 10/19/2019 10/18/2018, 10/12/2017 COVID-19 vaccine series ( season) 2023 09/18/2022, 08/26/2021, 07/22/2020, Additional history exists Influenza Vaccine (Season Ended) 2024 Depression screening for age 12+ 06/04/2025 06/04/2024, 06/04/2024, 10/18/2018, Additional history exists Tetanus booster 09/12/2025 09/13/2015, 03/07, 09/30/2002, Additional history exists Tdap Completed 09/13/2015, 03/07, 11/08/1995, Additional history exists Pneumococcal series for age 6-49 Aged Out No longer eligible based on patient's age to complete this topic Procedures Procedure Name Priority Date/Time Associated Diagnosis Comments LAB TRACKING EVENT Routine 06/04/2024 11 :15 AM CDT PATH TISSUE EXAM Routine 06/04/2024 11:1 5 AM CDT from Last 3 Months Results * LAB TRACKING EVENT (06/04/2024 11:15 AM CDT) Other (Other) Client Collect / Unknown 06/04/2024 11:15 AM CDT 06/05/2024 6:45 AM CDT us iRta Owen NP LAB BILL ONLY Final Res ult [facility] [address] [place] [address], * PATH TISSUE EXAM (06/04/2024 11:15 AM CDT) Case Report Pathology Report Case: [id number] Authorizing Provider: Rita Owen NP Collected: 06/04/2024 1115 Ordering Location: [facility] Received: 06/05/2024 1001 Pathologist: Hayden Bergman MD Specimen: Endometrial Biopsy 06/06/2024 3:38 PM CDT [facility] Final Diagnosis A) ENDOMETRIUM, BIOPSY: 1. Secretory endometrium 2. Negative for chronic endometritis 3. Negative for hyperplasia, atypia and malignancy 06/06/2024 3:38 PM CDT [facility]OR[facility]-C ENTRAL LABORATORY at 1538 CDT Clinical Information menorrhagia 06/06/2024 3:38 PM CDT [facility] Gross Description A) Received in formalin, labeled with the patient's name and endometrial biopsy, is a 2.5 x 2.5 x 0.4 cm aggregate of otoole-brown soft tissue fragments admixed with mucus, submitting entirely in 1 cassette. TTP 06/05/2024 06/06/2024 3:38 PM CDT [facility]- [facility] LAB[facility]ORY Microscopic Description The final diagnosis is based on microscopic examination of appropriate sections of all specimens. 06/06/2024 3:38 PM CDT [facility] Additional Information Interpreted at [facility] - [address] [place] [address] 06/06/2024 3:38 PM CDT [facility] LAB[facility] Other (Endometrial Biopsy) 06/04/2024 11:15 AM CDT 06/05/2024 10:01 AM CDT us Rita Owen NP PATHOLOGY/CYTOLOGY Final Result [facility] [address] [place] [address], from Last 3 Months Insurance [id number] [place] [id number] [employer] Care Teams Edge Beader Relationship Specialty Start Date End Date Pcp, No . PCP - General 10/08/17
--- OUTSIDE RECORDS SUMMARY | 2024-07-13 13:25 | XMS_ITS | Encounter Summary ---
Author Organization [facility] Address [address] [place] [address] Care Team Providers Care Landscape Photographer Name Role Phone Claudine Woodard MD Primary Care Provider [phone] Encounter Details Date Type Department Care Team (Late st Contact Info) Description 12/06/2015 Scanned History External to External, Provider [place] [address] [facility]- RECORDS Social History Tobacco Use Types Packs/Day [...] Team (Late st Contact Info) Description 07/29/2024 5:30 PM CDT Telemedicine [facility] [place] [address] Claudine Woodard MD [address] [place] [address] documented as of this encounter Visit Diagnoses Not on filedocumented in this encounter Care Teams Landscape Photographer Relationship Specialty Start Date End Date Claudine Woodard MD [address] [id number] PCP - General Family Practice 01/06/19 documented as of this encounter
--- OUTSIDE RECORDS SUMMARY | 2024-07-13 13:25 | XMS_ITS | Encounter Summary ---
Author Organization [facility] Address [address] [place] [address] Care Team Providers Care Gin Feeder Name Role Phone Claudine Woodard MD Primary Care Provider [phone] Encounter Details Date Type Department Care Team (Late st Contact Info) Description 12/08/2015 Correspondence None No Primary/Referring, Phy HME EQUIPMENT NEWSPAPER COPY EDITOR TICKET Social History Tobacco Use Types Packs/Day [...] Info) Description 07/29/2024 5:30 PM CDT Telemedicine [facility] [place] [address] Claudine Woodard MD [facility] [place] [address] [address] documented as of this encounter Visit Diagnoses Not on filedocumented in this encounter Care Teams Gin Feeder Relationship Specialty Start Date End Date Claudine Woodard MD [address] [place] [address] PCP - General Family Practice 01/06/19 documented as of this encounter
--- OUTSIDE RECORDS SUMMARY | 2024-07-13 13:25 | XMS_ITS | Clinical Summary ---
Author Organization [facility] Address [address] [place] [address]. [place] [address] Care Team Providers Care Equity Director Name Role Phone [facility], [facility] Primary [...] Utility updated for latest IMO load Immunizations Immunization Administration Dates Next Due DTaP, Unspecified 11/08/1995, [...] on file Legal Sex Female 4:33 AM LAND USE PLANNER Gender Identity Not on file Sexual Orientation [...] of Treatment Not on file Care Teams Equity Director Relationship Specialty Start Date End Date [facility], [facility] [address] [place] [address] PCP - General 08/02/22
--- OUTSIDE RECORDS SUMMARY | 2024-07-13 13:25 | XMS_ITS | Encounter Summary ---
Author Organization [facility] Address [address] [place] [address] Care Team Providers Care Sales Support Coordinator Name Role Phone Claudine Woodard MD Primary Care Provider [phone] Encounter Details Date Type Department Care Team (Late st Contact Info) Description 07/13/2015 Scanned History External to External, [place] [address] [facility]-PROCEDURE NOTES Social History Tobacco Use [...] Info) Description 07/29/2024 5:30 PM CDT Telemedicine [facility] [place] [address] Claudine Woodard MD [facility] [place] [address] [address] [address] documented as of this encounter Visit Diagnoses Not on filedocumented in this encounter Care Teams Sales Support Coordinator Relationship Specialty Start Date End Date Claudine Woodard MD [address] [place] [address] PCP - General Family Practice 01/06/19 documented as of this encounter
--- OUTSIDE RECORDS SUMMARY | 2024-07-13 13:25 | XMS_ITS | Clinical Summary ---
Author Organization [id number] Address [address] [place] [address] Care Team Providers Care Economics Consultant Name Role Phone Claudine Woodard MD Primary Care Provider [phone] Source Comments You are receiving this document as you are listed as the primary care provider,follow-up provider, or the patient has been referred to you for consultation.This is in compliance with the Medicare and[facility] EHR Incentive Program,which states Providers who transition their patient to another setting of careor provider of care or refers their patient to another provider of care shouldprovide summary care record for each transition of care or referral. English Helper Allergies Active Allergy Reactions Criticality Noted Date Comments Escitalopram Other, see comments 02/11/20242004-increased risk for suicide Medications testosterone cypionate (DEPO-TESTOSTERON E) 100 MG/ML injection [...] 50.0 to 59.9 in adult, unspecified obesity type,PCOS (polycystic ovarian syndrome) (HRC) TAKE 1 TABLET BY MOUTH X 7 DAYS, THEN 2 TABLETS X 7 DAYS, THEN 3 TABLETS X 7 DAYS, THEN 4 TABLETS DAILY 360 Tablet 02/06/20 24 Active hydrOXYzine HCl (ATARAX) 25 MG tabletIndications :Adjustment disorder with anxiety (HRC) Take 1-2 Tablets (25-50 mg) by mouth three times a day as needed for Anxiety. 60 Tablet 1 02/13/20 24 Active amphetamine-dextr oamphetamine XR (ADDERALL XR) 20 MG 24 hour release capsuleIndication s:Attention deficit hyperactivity disorder (ADHD), combined type (HRC) Take 1 Capsule (20 mg) by mouth daily for 30 days. 1 of 3 30 Capsule 03/24/19 25 Active amphetamine-dextr oamphetamine XR (ADDERALL XR) 20 MG 24 hour release capsuleIndication s:Attention deficit hyperactivity disorder (ADHD), combined type (HRC) Take 1 Capsule (20 mg) by mouth daily for 30 days. 2 of 3 Do not start before April 23, 2024. 30 Capsule 04/23/19 25 Active amphetamine-dextr oamphetamine XR (ADDERALL XR) 20 MG 24 hour release capsuleIndication s:Attention deficit hyperactivity disorder (ADHD), combined type (HRC) Take 1 Capsule (20 mg) by mouth daily for 30 days. 3 of 3 Do not start before May 23, 2024. 30 Capsule 05/24/19 25 Active amphetamine-dextr oamphetamine XR (ADDERALL XR) 30 MG 24 hour release capsuleIndication s:Attention deficit hyperactivity disorder (ADHD), combined type (HRC) Take 1 Capsule (30 mg) by mouth daily for 30 days. 1 of 3 Do not start before March 29, 2024. 30 Capsule 03/29/19 25 Active amphetamine-dextr oamphetamine XR (ADDERALL XR) 30 MG 24 hour release capsuleIndication s:Attention deficit hyperactivity disorder (ADHD), combined type (HRC) Take 1 Capsule (30 mg) by mouth daily for 30 days. 2 of 3 Do not start before April 26, 2024. 30 Capsule 04/26/19 25 Active amphetamine-dextr oamphetamine XR (ADDERALL XR) 30 MG 24 hour release capsuleIndication s:Attention deficit hyperactivity disorder (ADHD), combined type (HRC) Take 1 Capsule (30 mg) by mouth daily for 30 days. 3 of 3 Do not start before May 26, 2024. 30 Capsule 05/27/19 25 Active sertraline (ZOLOFT) 100 MG tabletIndications :Moderate episode of recurrent major depressive disorder (HRC),Adjustment disorder with anxiety (HRC) Take 1 Tablet (100 mg) by mouth daily. 90 Tablet 3 04/22/19 25 Active Active Problems Problem Noted Date Diagnosed [...] months-- one visit face to face Clinician: Cluadine Woodard MD Updated 09/10/2023 Social anxiety disorder 01/10/2019 Attention deficit hyperactivity disorder (ADHD) 10/16/2017 Overview (02/13/2019): Diagnosed by ACP (associated clinic psychology) at age 18. This is confirmed by review of records from [facility]. See scanned into media Major depression, recurrent 10/16/2017 Overview (01/10/2019): H/o suicide attempts. H/o cutting. Bicornuate uterus 12/06/2015 Overview (01/10/2019): Septate uterus PCOS (polycystic ovarian syndrome) 12/06/2015 Resolved Problems Problem Noted Date Diagnosed Date Resolved Date Cervical high risk HPV (angeline n papillomavirus) test positive 10/20/2019 10/12/2023 Overview (10/12/2023): [facility] Review: History: 2019: NILM HPV+ (non 16/18) [...] Department Care Team Description 04/22/2024 4:00 PM TECHNICAL PUBLICATIONS WRITER Telemedicine [address] [id number] [place] [address] Claudine Woodard MD Moderate episode of recurrent major depressive disorder (HRC) (Primary Dx); Stress (HRC); Adjustment disorder with anxiety (HRC); Recurrent major depressive disorder, in full remission (HRC) from Last 3 Months Immunizations Immunization Administration Dates Next Due DTaP 11/08/1995, 4,05/16/1991,1990,1989 HepB Adult (Engerix-B, 20+ y rs, 3 dose series) 10/10/2005,11/05/2002,09/30/2002 HepB, Unspecified Formulation 10/10/2005, 003,09/30/2002 Hib (PedvaxHIB) 05/16/1991,05/13/1990 Hib, Unspecified Formulation 05/16/1991,05/13/18 91 IPV (Polio) 11/08/1995, 2,05/13/1990,1989 Influenza IIV4 (Quadrivalent ) 0.5mL (35501) 11/13/2019,01/10/2019 MMR 11/05/2002,05/16/1991 Moderna Bivalent 12+ 09/18/2022 Moderna Monovalent Booster 12+ 08/26/2021 PCV20 ([id number]) 09/18/2022 PPSV23 (Pneumovax) 01/10/2019 Pfizer Monovalent 12+ Purple Top 07/22/2020,06/04 Td 09/30/2002 Td (7+ yrs) 09/30/2002 Tdap 09/13/2015, 3,11/08/1995,1993,05/16/1991,05/13/1990,1989 Family History Medical History Relation Name Comments Other Father was [facility] police lieutenant patrol with issues Depression Mother Cori Olivo Both [...] Info) Description 07/29/2024 5:30 PM CDT Telemedicine [facility] [address] [address] Claudine Woodard MD [address] [place] [address] Health Maintenance Due Date Last Done Comments COVID-19 Vaccine ( season) 2023 09/18/2022, 08/26/2021, 07/22/2020, Additional history exists Influenza Vaccine (Season Ended) 2024 11/13/2019, 01/10/2019 Adult Preventive Visit 09/09/2025 , 09/18/2022, 10/06/2019 DTaP/Tdap/Td Vaccine (8 - Tdap) 09/12/2025 09/13/2015, 04/03/2012, 09/30/2002, Additional history exists Cervical Cancer Screening 09/09/20282023, 09/10/2023, 09/18/2022, Additional history exists Zoster/Shingles Vaccine (1 of 2) 09/12/2039 Hib Vaccine Completed 05/16/1991, 05/03, 05/13/1990, Additional history exists IPV (Polio) Vaccine Completed 11/08/1995, 05/16/1991, 05/13/1990, Additional history exists HepB Vaccine Completed 10/10/2005, 10/2005, 11/05/2002, Additional history exists HIV Screening (Preventive Services) Completed 10/06/2019 Pneumococcal Vaccine Aged Out 09/18/2022, 01/11/20 19 No longer eligible based on patient's age to complete this topic Hep C Screening (Preventive Services) Completed 04/05/2023 HPV Vaccine Aged Out No longer eligi ble based on patient's age to complete this topic HepA Vaccine Aged Out No longer eligi ble based on patient's age to complete this topic MCV4 Vaccine Aged Out No longer eligi ble based on patient's age to complete this topic Meningococcal B Vaccine Aged Out No l onger eligible based on patient's age to complete this topic Procedures Procedure Name Priority Date/Time Associated Diagnosis Comments HPV WITH 16 18 GENOTYPING, CERVICAL/ENDOCERV ICAL Routine 09/10/2023 9:58 AM CDT Special screening examination for human papillomavirus (HPV) HEPATITIS C ANTIBODY, WITH REFLEX Routine 04/05/2023 11:40 AM TECHNICAL PUBLICATIONS WRITER Need for hepatitis C screening test HIV 1/2 AG/AB 4TH GEN Routine 10/06/2019 1:53 PM CDT Screening for HIV (human immunodeficiency virus) from Last 3 Months or Most Recently Relevant to Health Maintenance Results * HPV Genotyping PCR (Cervical/Endocervical ONLY) (09/10/2023 9:58 AM CDT) Pathologist [facility] HPV High Risk Type 16 PCR Not Detected Not detected 10/11/2023 3:54 PM CDT [facility] HPV High Risk Type 18 PCR Not Detected Not Detected 10/11/2023 3:54 PM CDT [facility] HPV High Risk Other Than 16/18 Not Detected Not detected 10/11/2023 3:54 PM CDT [facility] Cervical Broom ENTIRE ENDOCERVIX / Unknown 09/10/2023 9:58 AM CDT 09/10/2023 10:19 AM CDT Claudine Woodard MD LAB_1 Final Resul t Performing Organization Address [facility] Co de Phone Number [address] * Hepatitis C Antibody, with Reflex (04/05/2023 11:40 AM TECHNICAL PUBLICATIONS WRITER) Pathologist [facility] Hepatitis C Antibody Negative (Non Reactive) Negative (Non Reactive) 04/05/2023 4:38 PM TECHNICAL PUBLICATIONS WRITER [facility] Comment:Antibodies to HCV no t detected. Does not exclude the possiblity of exposure to HCV. Blood Venipuncture / Unknown 04/05/2023 11:40 AM TECHNICAL PUBLICATIONS WRITER 04/05/2023 11:40 AM TECHNICAL PUBLICATIONS WRITER us Claudine Woodard MD LAB_1 Final Resul t [facility] [address] [place] [id number] * HIV 1/2 Ag/Ab 4th Generation (10/06/2019 1:53 PM CDT) Pathologist [facility] HIV 1/2 Antigen/Antib analy (4th generation) Negative (Non Reactive) Negative (Non Reactive) 10/06/2019 6:36 PM CDT [facility] Comment:HIV-1 p24 Antigen an d HIV-1/HIV-2 Antibody not detected Blood Venipuncture / Unknown 10/06/2019 1:53 PM CDT 10/06/2019 1:53 PM CDT us Claudine Woodard MD LAB_1 Final Resul t [facility] [address] [place] [address], [facility] from Last 3 Months or Most Recently Relevant to Health Maintenance Insurance SELF INSURED SELF INSURED [employer] Advance Directives * Full Code (Latest Code Status on File) Date Activated Date Inactivated Comments 12/06/2015 8:35 AM 12/08/2015 4:52 PM Care Teams Economics Consultant Relationship Specialty Start Date End Date Claudine Woodard MD [address] [place] [address] PCP - General Family Practice 01/06/19
[2024-07-13 13:27] VITALS: BP 122/97; PULSE 96; RESP 22; TEMP 36.8; O2SAT 98; BMI 39.5
[2024-07-13 13:53] LABS: Appearance Urine Slightly Cloudy (Clear); Bilirubin Urine Negative (Negative); Blood Urine Negative (Negative); Color Urine Light yellow (Yellow); Glucose Urine Negative (Negative); Ketones Urine Negative (Negative); Leukocyte Esterase Urine Trace (Negative); Nitrite Urine Negative (Negative); Protein Urine Negative (Negative); Urobilinogen Urine 0.2 (0.2-1.0)
[2024-07-13 13:59] LABS: Basophils Absolute Auto 0.06 K/uL (0.00-0.30); Basophils Percent Auto 0.7 % (0.0-3.0); Eosinophils Absolute Auto 0.11 K/uL (0.00-0.50); Eosinophils Percent Auto 1.3 % (0.0-7.0); Hematocrit 42.9 % (33.0-51.0); Immature Granulocytes Abs Auto 0.01 K/uL (0.00-0.30); Immature Granulocytes Pct Auto 0.1 %; Lymphocytes Absolute Auto 1.78 K/uL (0.90-2.90); Lymphocytes Percent Auto 20.7 % (20-44); Mean Corpuscular HGB Conc 33 gm/dL (32-36); Mean Corpuscular Hemoglobin 30 pg (26-34); Mean Corpuscular Volume 93 fL (80-100); Monocytes Percent Auto 6.2 % (0.0-11.0); Neutrophils Absolute Auto 6.12 K/uL (1.7-7.0); Platelet Count* 307 K/uL (140-440); RDW Coefficient of Variation % 12.8 % (11.5-15.5); Red Blood Count 4.64 m/uL (4.00-5.20); White Blood Count* 8.61 K/uL (4.50-11.00)
[2024-07-13 14:00] LABS: Bacteria Urine Moderate; RBC Urine 0-2 (0-2); Squamous Epithelial Cell Urine Moderate (None-Few)
[2024-07-13 14:03] LABS: Amphetamine Screen Urine Negative (Negative); Barbiturate Screen Urine Negative (Negative); Benzodiazepines Screen Urine Negative (Negative); Cannabinoid Screen Urine Negative (Negative); Cocaine Screen Urine Negative (Negative); Methadone Screen Urine Negative (Negative); Methamphetamines Screen Urine Negative (Negative); Opiate Screen Urine Negative (Negative); Oxycodone Screen Urine Negative (Negative); Phencyclidine Screen Urine Negative (Negative); Tricyclic Antidepressant Urine Negative (Negative)
[2024-07-13 14:03] LABS: Slide Review Reflex No
[2024-07-13 14:15] LABS: Chloride* 107 mmol/L (96-114); Sodium* 138 mmol/L (135-149)
--- NOTE | 2024-07-13 14:15 | ED.PSYCH ---
HPI - Psych General Date Seen: 07/13/24 <Agustin Park - Last Filed: 07/14/24 08:03> Chief Complaint: Psychiatric Problem/Disorder <Agustin Park - Last Filed: 07/14/24 08:03> Stated Complaint: Mental Health <Agustin Park - Last Filed: 07/14/24 08:03> Time Seen by Provider: 07/13/24 13:23 <Agustin Park - Last Filed: 07/14/24 08:03> Source: EMS and police <Agustin Park - Last Filed: 07/14/24 08:03> Mode of arrival: EMS <Agustin Pakr - Last Filed: 07/14/24 08:03> Limitations: no limitations <Agustin Park DO - Last Filed: 07/14/24 08:03> History of Present Illness HPI Narrative: Patient is a 33-year-old female with a history of depression presenting to the emergency department for a mental health evaluation. She called police tolerating them that they need to bring her to longterm for 1 week because she is responsible for 4 children Ericka of lead poisoning last year. She denies ever needing these kids but states she was told she is responsible by a person that use to shop at [employer]. 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 She states she was told she urged them to take the lead to build up their tolerance. Again she states she has not remember ever meeting these children. She then called the police who called EMS to bring her to the hospital. Patient states she wants to go to [facility]. States she is feeling depressed and wants to switch places with 1 of the children. Does states she had her children taken from her and put in protective custody when she went to mental health facility earlier this year. Her father is currently taking care of her child. She is supposed to have a court date this week to set the visitation rights. She states she is feeling overwhelmed. EMS states that 1st time I got there she was talking fast and was not making much sense. No known diagnosis of bipolar disease. Denies visual or auditory hallucinations. Denies any homicidal ideation. <Agustin Park DO - Last Filed: 07/14/24 08:03> Related Data Home Medications: Home Medications ?Medication ?Instructions ?Recorded ?Confirmed metformin 500 mg tablet,extended 1,000 mg PO DAILY 05/12/23 07/13/24 release 24 hr sertraline 100 mg tablet 100 mg PO DAILY 05/17/24 07/13/24 Previous Rx's ?Medication ?Instructions ?Recorded medroxyprogesterone 10 mg tablet 10 mg PO QDAY #10 tabs 06/04/24 (Provera) <Agustin Park DO - Last Filed: 07/14/24 08:03> Allergies/Adverse Reactions: Allergies Allergy/AdvReac Type Severity Reaction Status Date / Time No Known Drug Allergies Allergy Verified 07/13/24 13:36 <Agustin Park DO - Last Filed: 07/14/24 08:03> Review of Systems Status of ROS: Reports: 10 or more systems reviewed and unremarkable except as noted in History and below <Agustin Park DO - Last Filed: 07/14/24 08:03> PFSH PFSH Surgical History: Surgical History History of bunionectomy ?Z98.890 - Other specified postprocedural states (ICD-10) <Agustin Park DO - Last Filed: 07/14/24 08:03> Family History: Family History Grandmother Heart disease Stroke High blood pressure Mother Stroke Cervical cancer FH: mental illness Seizure disorder Father FH: mental illness Alcohol dependence <Agustin Park DO - Last Filed: 07/14/24 08:03> Social History: Social History Smoking Status: Never smoker Second hand tobacco smoke exposure: No How often do you have a drink containing alcohol: never AUDIT-C Alcohol total score: 0 Non-prescribed substance use: denies use <Agustin Park DO - Last Filed: 07/14/24 08:03> Exam Narrative: Exam Narrative: Const: Well-nourished, Well-developed, in no distress Eyes: PERRL, no conjunctival injection, and symmetrical lids HENT: Atraumatic external nose and ears. Moist mucous membranes. Neck: Symmetric, trachea midline, No thyromegaly. CVS: RRR, No murmurs or gallops. Peripheral pulses 2+ and equal in all extremities RESP: Unlabored respiratory effort. Clear to auscultation bilaterally. GI: Nontender/Nondistended, No rebound or guarding. MSK:Extremities w/o deformity, Normal Active ROM Skin: Warm, Dry. No rashes or lesions. Neuro: Normal Muscle tone, No focal neurological deficits. Psych: Awake, Alert, & Oriented x3. Appropriate mood and affect. <Agustin Park DO - Last Filed: 07/14/24 08:03> Const: Vital Signs, click to edit/add: Vital Signs - 24 hr 07/13/24 13:27 07/14/24 06:13 Temperature 98.2 F 98.2 F Pulse Rate [Pulse Oximeter] 96 85 Respiratory Rate 22 22 Blood Pressure [Ri ght Upper Arm] 122/97 H 118/81 Pulse Oximetry 98 98 Oxygen Delivery Me thod Room Air Room Air <Agustin Park DO - Last Filed: 07/14/24 08:03> Vital Signs, click to edit/add: Vital Signs - 24 hr 07/13/24 13:27 07/14/24 06:13 Temperature 98.2 F 98.2 F Pulse Rate [Pulse Oximeter] 96 85 Respiratory Rate 22 22 Blood Pressure [Ri ght Upper Arm] 122/97 H 118/81 Pulse Oximetry 98 98 Oxygen Delivery Me thod Room Air Room Air <Musa Thakur MD - Last Filed: 07/14/24 07:58> Course Reevaluation(s) Time of Reevaluation #1: 07:21 <Musa Thakur MD - Last Filed: 07/14/24 07:58> Reevaluation #1: Patient remained stable in the emergency department overnight, transferred to [facility] in stable condition on a behavioral health hold. <Musa Thakur MD - Last Filed: 07/14/24 07:58> Vital Signs Vital signs: Initial Vital Signs Temperature 98.2 F 07/13/24 13:27 Temperature Source Temporal Artery Scan 07/13/24 13:27 Pulse Rate 96 07/13/24 13:27 Respiratory Rate 22 07/13/24 13:27 Blood Pressure 122/97 H 07/13/24 13:27 Blood Pressure Mean 105 07/13/24 13:27 Blood Pressure Position Sitting 07/13/24 13:27 Pulse Oximetry 98 07/13/24 13:27 Oxygen Delivery Method Room Air 07/13/24 13:27 Vital Signs Temperature 98.2 F 07/13/24 13:27 Pulse Rate 96 07/13/24 13:27 Respiratory Rate 22 07/13/24 13:27 Blood Pressure 122/97 H 07/13/24 13:27 Pulse Oximetry 98 07/13/24 13:27 Oxygen Delivery Method Room Air 07/13/24 13:27 Temperature 98.2 F 07/14/24 06:13 Pulse Rate 85 07/14/24 06:13 Respiratory Rate 22 07/14/24 06:13 Blood Pressure 118/81 07/14/24 06:13 Pulse Oximetry 98 07/14/24 06:13 Oxygen Delivery Method Room Air 07/14/24 06:13 <Agustin Park, DO - Last Filed: 07/14/24 08:03> Initial Vital Signs Temperature 98.2 F 07/13/24 13:27 Temperature Source Temporal Artery Scan 07/13/24 13:27 Pulse Rate 96 07/13/24 13:27 Respiratory Rate 07/13/24 13:27 Blood Pressure 122/97 H 07/13/24 13:27 Blood Pressure Mean 105 07/13/24 13:27 Blood Pressure Position Sitting 07/13/24 13:27 Pulse Oximetry 98 07/13/24 13:27 Oxygen Delivery Method Room Air 07/13/24 13:27 Vital Signs Temperature 98.2 F 07/13/24 13:27 Pulse Rate 96 07/13/24 13:27 Respiratory Rate 22 07/13/24 13:27 Blood Pressure 122/97 H 07/13/24 13:27 Pulse Oximetry 98 07/13/24 13:27 Oxygen Delivery Method Room Air 07/13/24 13:27 Temperature 98.2 F 07/14/24 06:13 Pulse Rate 85 07/14/24 06:13 Respiratory Rate 22 07/14/24 06:13 Blood Pressure 118/81 07/14/24 06:13 Pulse Oximetry 98 07/14/24 06:13 Oxygen Delivery Method Room Air 07/14/24 06:13 <Musa Thakur MD - Last Filed: 07/14/24 07:58> Medications Administered Medications: Discontinued Medications Generic Name Dose Route Start Last Admin Trade Name Freq PRN Reason Stop Dose Admin Nicotine 1 patch 07/13/24 20:30 07/14/24 07:11 Nicotine 14 Mg Patch TRANSDERMA 1 patch Q24H NOELLE Administration <Agustin Park DO - Last Filed: 07/14/24 08:03> Discontinued Medications Generic Name Dose Route Start Last Admin Trade Name Freq PRN Reason Stop Dose Admin Nicotine 1 patch 07/13/24 20:30 07/14/24 07:11 Nicotine 14 Mg Patch TRANSDERMA 1 patch Q24H NOELLE Administration <Musa Thakur MD - Last Filed: 07/14/24 07:58> MDM - Psych MDM Narrative Medical decision making narrative: Patient is a 33-year-old female presenting for mental health evaluation. She is on a hold via police. Patient currently is agreeable for inpatient treatment. Will order mental health workup. Patient at this time does not appear to be an active threat against anyone else. Per EMS report it does sound like she had some pressured speech and flight of ideas when they arrived and she could be having a manic episode although again she is not diagnosed with bipolar disorder. Is definitely having delusions believing she caused the of 4 children of lead poisoning last year. There are no reports of lead poisoning deaths in the [facility] as far as I can tell. We will have her be evaluated by [facility]. [facility] agrees she needs to be admitted. They also states she seems to be showing some signs of alysa or hypomania. Patient is initially agreeable to this is that is what she wanted but did have an episode for she was trying to leave and change showed of her scrubs. Eventually she come down and is agreeable to stay. Due to this attempt to the so she was placed on a hold. She was made aware of this states she understands. We are waiting for placement at the end of my shift and she will be signed out to my colleague. Nicotine patch ordered. <Agustin Park DO - Last Filed: 07/14/24 08:03> Lab Data Labs: Lab Results 07/13/24 07/13/24 07/13/24 Range/Units 13:45 13:54 14:03 WBC 8.61 (4.50-11.00) K/uL RBC 4.64 (4.00-5.20) m/uL Hgb 14.0 (12.0-16.0) gm/dL Hct 42.9 (33.0-51.0) % MCV 93 (80-100) fL MCH 30 (26-34) pg MCHC 33 (32-36) gm/dL RDW Coeff of Renetta 12.8 (11.5-15.5) % Plt Count 307 (140-440) K/uL Neut % (Auto) 71.0 (42.0-72.0) % Lymph % (Auto) 20.7 (20-44) % [place] % (Auto) 6.2 (0.0-11.0) % Eos % (Auto) 1.3 (0.0-7.0) % Baso % (Auto) 0.7 (0.0-3.0) % Neut # (Auto) 6.12 (1.7-7.0) K/uL Lymph # (Auto) 1.78 (0.90-2.90) K/uL [place] # (Auto) 0.50 (0.00-0.90) K/UL Eos # (Auto) 0.11 (0.00-0.50) K/uL Baso # (Auto) 0.06 (0.00-0.30) K/uL Abs Immat Gran (auto) 0.01 (0.00-0.30) K/uL Imm/Tot Granulo (auto) 0.1 % Sodium 138 (135-149) mmol/L Potassium 3.7 (3.6-5.1) mmol/L Chloride 107 (96-114) mmol/L Carbon Dioxide 23 (20-32) mmol/L Anion Gap 8 (7-15) mEq/L BUN 9 (5-24) mg/dL Creatinine 0.8 (0.5-1.5) mg/dL Estimated Creat Clear 85.56 Estimated GFR 99 ml/min Glucose 105 (60-115) mg/dL Calcium 9.5 (8.4-10.6) mg/dL TSH 1.830 (0.270-4.20) uIU/mL HCG, Qual Negative (Negative) HCG, Quant Cancelled Urine Color Light yellow (Yellow) Urine Appearance Slightly Cloudy A (Clear) Urine pH 7.0 (5.0-8.5) Ur Specific [place] 1.010 (1.000-1.030) Urine Protein Negative (Negative) Urine Glucose (UA) Negative (Negative) Urine Ketones Negative (Negative) Urine Blood Negative (Negative) Urine Nitrite Negative (Negative) Urine Bilirubin Negative (Negative) Urine Urobilinogen 0.2 (0.2-1.0) Ur Leukocyte Esterase Trace A (Negative) Urine RBC 0-2 (0-2) Urine WBC 2-5 (0-5) Ur Squamous Epith Cells Moderate A (None-Few) Urine Bacteria Moderate A (None) Salicylates < 1.0 L (1.0-10) mg/dL Urine Opiates Screen Negative (Negative) Ur Oxycodone Screen Negative (Negative) Urine Methadone Screen Negative (Negative) Acetaminophen < 10.0 (10.0-30.0) ug/mL Ur Barbiturates Screen Negative (Negative) U Tricyclic Antidepress Negative (Negative) Ur Phencyclidine Scrn Negative (Negative) Ur Amphetamines Screen Negative (Negative) U Methamphetamines Scrn Negative (Negative) U Benzodiazepines Scrn Negative (Negative) Urine Cocaine Screen Negative (Negative) U Marijuana (THC) Screen Negative (Negative) Ur Drug Screen Comment See Note Ethyl Alcohol < 0.01 (0.01-0.03) % SARS-CoV-2 (PCR) Negative SARS-CoV-2 (Negative) Lab Acknowledgement 07/13/24 Range/Units 14:46 WBC (4.50-11.00) K/uL RBC (4.00-5.20) m/uL Hgb (12.0-16.0) gm/dL Hct (33.0-51.0) % MCV (80-100) fL MCH (26-34) pg MCHC (32-36) gm/dL RDW Coeff of Renetta (11.5-15.5) % Plt Count (140-440) K/uL Neut % (Auto) (42.0-72.0) % Lymph % (Auto) (20-44) % [place] % (Auto) (0.0-11.0) % Eos % (Auto) (0.0-7.0) % Baso % (Auto) (0.0-3.0) % Neut # (Auto) (1.7-7.0) K/uL Lymph # (Auto) (0.90-2.90) K/uL [place] # (Auto) (0.00-0.90) K/UL Eos # (Auto) (0.00-0.50) K/uL Baso # (Auto) (0.00-0.30) K/uL Abs Immat Gran (auto) (0.00-0.30) K/uL Imm/Tot Granulo (auto) % Sodium (135-149) mmol/L Potassium (3.6-5.1) mmol/L Chloride (96-114) mmol/L Carbon Dioxide (20-32) mmol/L Anion Gap (7-15) mEq/L BUN (5-24) mg/dL Creatinine (0.5-1.5) mg/dL Estimated Creat Clear Estimated GFR ml/min Glucose (60-115) mg/dL Calcium (8.4-10.6) mg/dL TSH (0.270-4.20) uIU/mL HCG, Qual (Negative) HCG, Quant Urine Color (Yellow) Urine Appearance (Clear) Urine pH (5.0-8.5) Ur Specific [place] (1.000-1.030) Urine Protein (Negative) Urine Glucose (UA) (Negative) Urine Ketones (Negative) Urine Blood (Negative) Urine Nitrite (Negative) Urine Bilirubin (Negative) Urine Urobilinogen (0.2-1.0) Ur Leukocyte Esterase (Negative) Urine RBC (0-2) Urine WBC (0-5) Ur Squamous Epith Cells (None-Few) Urine Bacteria (None) Salicylates (1.0-10) mg/dL Urine Opiates Screen (Negative) Ur Oxycodone Screen (Negative) Urine Methadone Screen (Negative) Acetaminophen (10.0-30.0) ug/mL Ur Barbiturates Screen (Negative) U Tricyclic Antidepress (Negative) Ur Phencyclidine Scrn (Negative) Ur Amphetamines Screen (Negative) U Methamphetamines Scrn (Negative) U Benzodiazepines Scrn (Negative) Urine Cocaine Screen (Negative) U Marijuana (THC) Screen (Negative) Ur Drug Screen Comment Ethyl Alcohol (0.01-0.03) % SARS-CoV-2 (PCR) (Negative) Lab Acknowledgement Test Added <Agustin P Steedman, DO - Last Filed: 07/14/24 08:03> Lab Results 07/13/24 07/13/24 07/13/24 Range/Units 13:45 13:54 14:03 WBC 8.61 (4.50-11.00) K/uL RBC 4.64 (4.00-5.20) m/uL Hgb 14.0 (12.0-16.0) gm/dL Hct 42.9 (33.0-51.0) % MCV 93 (80-100) fL MCH 30 (26-34) pg MCHC 33 (32-36) gm/dL RDW Coeff of Renetta 12.8 (11.5-15.5) % Plt Count 307 (140-440) K/uL Neut % (Auto) 71.0 (42.0-72.0) % Lymph % (Auto) 20.7 (20-44) % [place] % (Auto) 6.2 (0.0-11.0) % Eos % (Auto) 1.3 (0.0-7.0) % Baso % (Auto) 0.7 (0.0-3.0) % Neut # (Auto) 6.12 (1.7-7.0) K/uL Lymph # (Auto) 1.78 (0.90-2.90) K/uL [place] # (Auto) 0.50 (0.00-0.90) K/UL Eos # (Auto) 0.11 (0.00-0.50) K/uL Baso # (Auto) 0.06 (0.00-0.30) K/uL Abs Immat Gran (auto) 0.01 (0.00-0.30) K/uL Imm/Tot Granulo (auto) 0.1 % Sodium 138 (135-149) mmol/L Potassium 3.7 (3.6-5.1) mmol/L Chloride 107 (96-114) mmol/L Carbon Dioxide 23 (20-32) mmol/L Anion Gap 8 (7-15) mEq/L BUN 9 (5-24) mg/dL Creatinine 0.8 (0.5-1.5) mg/dL Estimated Creat Clear 85.56 Estimated GFR 99 ml/min Glucose 105 (60-115) mg/dL Calcium 9.5 (8.4-10.6) mg/dL TSH 1.830 (0.270-4.20) uIU/mL HCG, Qual Negative (Negative) HCG, Quant Cancelled Urine Color Light yellow (Yellow) Urine Appearance Slightly Cloudy A (Clear) Urine pH 7.0 (5.0-8.5) Ur Specific [place] 1.010 (1.000-1.030) Urine Protein Negative (Negative) Urine Glucose (UA) Negative (Negative) Urine Ketones Negative (Negative) Urine Blood Negative (Negative) Urine Nitrite Negative (Negative) Urine Bilirubin Negative (Negative) Urine Urobilinogen 0.2 (0.2-1.0) Ur Leukocyte Esterase Trace A (Negative) Urine RBC 0-2 (0-2) Urine WBC 2-5 (0-5) Ur Squamous Epith Cells Moderate A (None-Few) Urine Bacteria Moderate A (None) Salicylates < 1.0 L (1.0-10) mg/dL Urine Opiates Screen Negative (Negative) Ur Oxycodone Screen Negative (Negative) Urine Methadone Screen Negative (Negative) Acetaminophen < 10.0 (10.0-30.0) ug/mL Ur Barbiturates Screen Negative (Negative) U Tricyclic Antidepress Negative (Negative) Ur Phencyclidine Scrn Negative (Negative) Ur Amphetamines Screen Negative (Negative) U Methamphetamines Scrn Negative (Negative) U Benzodiazepines Scrn Negative (Negative) Urine Cocaine Screen Negative (Negative) U Marijuana (THC) Screen Negative (Negative) Ur Drug Screen Comment See Note Ethyl Alcohol < 0.01 (0.01-0.03) % SARS-CoV-2 (PCR) Negative SARS-CoV-2 (Negative) Lab Acknowledgement 07/13/24 Range/Units 14:46 WBC (4.50-11.00) K/uL RBC (4.00-5.20) m/uL Hgb (12.0-16.0) gm/dL Hct (33.0-51.0) % MCV (80-100) fL MCH (26-34) pg MCHC (32-36) gm/dL RDW Coeff of Renetta (11.5-15.5) % Plt Count (140-440) K/uL Neut % (Auto) (42.0-72.0) % Lymph % (Auto) (20-44) % [place] % (Auto) (0.0-11.0) % Eos % (Auto) (0.0-7.0) % Baso % (Auto) (0.0-3.0) % Neut # (Auto) (1.7-7.0) K/uL Lymph # (Auto) (0.90-2.90) K/uL [place] # (Auto) (0.00-0.90) K/UL Eos # (Auto) (0.00-0.50) K/uL Baso # (Auto) (0.00-0.30) K/uL Abs Immat Gran (auto) (0.00-0.30) K/uL Imm/Tot Granulo (auto) % Sodium (135-149) mmol/L Potassium (3.6-5.1) mmol/L Chloride (96-114) mmol/L Carbon Dioxide (20-32) mmol/L Anion Gap (7-15) mEq/L BUN (5-24) mg/dL Creatinine (0.5-1.5) mg/dL Estimated Creat Clear Estimated GFR ml/min Glucose (60-115) mg/dL Calcium (8.4-10.6) mg/dL TSH (0.270-4.20) uIU/mL HCG, Qual (Negative) HCG, Quant Urine Color (Yellow) Urine Appearance (Clear) Urine pH (5.0-8.5) Ur Specific [place] (1.000-1.030) Urine Protein (Negative) Urine Glucose (UA) (Negative) Urine Ketones (Negative) Urine Blood (Negative) Urine Nitrite (Negative) Urine Bilirubin (Negative) Urine Urobilinogen (0.2-1.0) Ur Leukocyte Esterase (Negative) Urine RBC (0-2) Urine WBC (0-5) Ur Squamous Epith Cells (None-Few) Urine Bacteria (None) Salicylates (1.0-10) mg/dL Urine Opiates Screen (Negative) Ur Oxycodone Screen (Negative) Urine Methadone Screen (Negative) Acetaminophen (10.0-30.0) ug/mL Ur Barbiturates Screen (Negative) U Tricyclic Antidepress (Negative) Ur Phencyclidine Scrn (Negative) Ur Amphetamines Screen (Negative) U Methamphetamines Scrn (Negative) U Benzodiazepines Scrn (Negative) Urine Cocaine Screen (Negative) U Marijuana (THC) Screen (Negative) Ur Drug Screen Comment Ethyl Alcohol (0.01-0.03) % SARS-CoV-2 (PCR) (Negative) Lab Acknowledgement Test Added <Musa Thakur MD - Last Filed: 07/14/24 07:58> Discharge Plan Discharge Clinical Impression: Depression, Delusion <Agustin Park DO - Last Filed: 07/14/24 08:03> Patient Disposition: Xfer Psychiatric Hosp <Agustin Park DO - Last Filed: 07/14/24 08:03> Prescriptions: No Action metformin 500 mg tablet extended release 24 hr 1,000 mg PO DAILY medroxyprogesterone [Provera] 10 mg tablet 10 mg PO QDAY Qty: 10 4RF Rx Instructions: take daily x10 days every 3 months if not menstruating sertraline 100 mg tablet 100 mg PO DAILY <Agustin Park DO - Last Filed: 07/14/24 08:03> Stand Alone Forms: MyHealth Info Instructions <Agustin Park DO - Last Filed: 07/14/24 08:03>
[2024-07-13 14:16] LABS: Potassium* 3.7 mmol/L (3.6-5.1)
[2024-07-13 14:18] LABS: Anion Gap 8 mEq/L (7-15); Blood Urea Nitrogen* 9 mg/dL (5-24); Carbon Dioxide* 23 mmol/L (20-32); Creatinine* 0.8 mg/dL (0.5-1.5); Est. Creatinine Clearance* 85.56; Estimated Glomerular Filt Rate 99 ml/min
[2024-07-13 14:19] LABS: Calcium* 9.5 mg/dL (8.4-10.6); Glucose* 105 mg/dL (60-115)
[2024-07-13 14:42] LABS: SARS PCR* Negative SARS-CoV-2 (Negative)
--- OUTSIDE RECORDS SUMMARY | 2024-07-13 14:49 | XMS_ITS | Encounter Summary ---
Author Organization [facility] Address [address] [place] [address] Care Team Providers Care Early Childhood Education Coordinator Name Role Phone Claudine Woodard MD Primary Care Provider [phone] Encounter Details Date Type Department Care Team (Late st Contact Info) Description 12/06/2015 Scanned History External to External, [place] [address] [facility] Social History Tobacco Use Types [...] Info) Description 07/29/2024 5:30 PM CDT Telemedicine [facility] [place] [address] Claudine Woodard MD [address] [place] [id number] documented as of this encounter Visit Diagnoses Not on filedocumented in this encounter Care Teams Early Childhood Education Coordinator Relationship Specialty Start Date End Date Claudine Woodard MD [address] [phone] PCP - General Family Practice 01/06/19 documented as of this encounter
--- OUTSIDE RECORDS SUMMARY | 2024-07-13 14:49 | XMS_ITS | Clinical Summary ---
Author Organization [employer] [facility] Address [address] [place] [id number] Care Team Providers Care Textile Technical Officer Name Role Phone Pcp, No Primary Care [...] Department Care Team Description 07/04/2024 Patient Outreach [facility] Care Management - Care Management Navigation/[facility] [address] [place] [id number] Sonia Ayala LGSW [facility] Navigation 06/05/2024 Lab Requisition [facility] [phone] Rita Owen NP 06/04/2024 2:15 PM CDT Office Visit [facility] [address] [place] [address] Ronn Murguia MD Referral (psychiatry referral ); Establish Care 06/04/2024 Telephone [facility] [address] [place] [address] Ronn Murguia MD medication transfer (metFORMIN, sertraline) [...] on file Legal Sex Female 8:15 AM [employer] Gender Identity Not on file Sexual Orientation [...] 36.9 C (98.4 F) 03/10/2022 11:08 AM [employer] Respiratory Rate 16 05/22/2014 1:03 AM CDT [...] Description 07/29/2024 7:30 AM CDT Office Visit [facility] [address] [place] [address] Abdullahi Jackson MD [address] [place] [id number] Health Maintenance Due Date Last Done Comments [...] AM CDT 06/05/2024 6:45 AM CDT us Rita Owen NP LAB BILL ONLY Final Res ult [facility] [address] [place] [address], * PATH TISSUE EXAM (06/04/2024 11:15 AM CDT) Case Report Pathology Report Case: [id number] Authorizing Provider: Rita Owen NP Collected: 06/04/2024 1115 Ordering Location: [facility] Received: 06/05/2024 1001 Pathologist: Hayden Bergman MD Specimen: Endometrial Biopsy 06/06/2024 3:38 PM CDT [facility] Final Diagnosis A) ENDOMETRIUM, BIOPSY: 1. Secretory endometrium 2. Negative for chronic endometritis 3. Negative for hyperplasia, atypia and malignancy 06/06/2024 3:38 PM CDT [facility] LABORATORY-C ENTRAL LABORATORY at 1538 CDT Clinical Information menorrhagia 06/06/2024 3:38 PM CDT [facility] LABORATORY Gross Description A) Received in formalin, labeled with the patient's name and endometrial biopsy, is a 2.5 x 2.5 x 0.4 cm aggregate of otoole-brown soft tissue fragments admixed with mucus, submitting entirely in 1 cassette. TTP 06/05/2024 06/06/2024 3:38 PM CDT [facility] Microscopic Description The final diagnosis is based on microscopic examination of appropriate sections of all specimens. 06/06/2024 3:38 PM CDT [facility] Additional Information Interpreted at [facility] - [address] [place] [id number] 06/06/2024 3:38 PM CDT [facility] Other (Endometrial Biopsy) 06/04/2024 11:15 AM CDT 06/05/2024 10:01 AM CDT us Rita Owen NP PATHOLOGY/CYTOLOGY Final Result [facility] [address] [place] [address], from Last 3 Months Insurance [phone] [id number] [employer] Care Teams Textile Technical Officer Relationship Specialty Start Date End Date Pcp, No . PCP - General 10/08/17
--- OUTSIDE RECORDS SUMMARY | 2024-07-13 14:49 | XMS_ITS | Encounter Summary ---
Author Organization [email or web address] Address [address] [place] [address] Care Team Providers Care Cut Tobacco Bulker Name Role Phone Claudine Woodard MD Primary Care Provider [phone] Encounter Details Date Type Department Care Team (Late st Contact Info) Description 07/13/2015 Scanned History External to External, [place] [address] [facility]-PROCEDURE NOTES Social History [...] Info) Description 07/29/2024 5:30 PM CDT Telemedicine [facility] [place] [address] Claudine Woodard MD [facility] [place] [address] [id number] documented as of this encounter Visit Diagnoses Not on filedocumented in this encounter Care Teams Cut Tobacco Bulker Relationship Specialty Start Date End Date Claudine Woodard MD [address] [place] [id number] PCP - General Family Practice 01/06/19 documented as of this encounter
--- OUTSIDE RECORDS SUMMARY | 2024-07-13 14:49 | XMS_ITS | Clinical Summary ---
Author Organization [facility] [employer] Address [address] [place] [address] Care Team Providers Care Lawn Maintenance Worker Name Role Phone Claudine Woodard MD Primary Care Provider [phone] Source Comments You are receiving this document as you are listed as the primary care provider,follow-up provider, or the patient has been referred to you for consultation.This is in compliance with the Medicare and[facility] EHR Incentive Program,which states Providers who transition their patient to another setting of careor provider of care or refers their patient to another provider of care shouldprovide summary care record for each transition of care or referral. [employer] Allergies Active Allergy Reactions Criticality Noted Date [...] is confirmed by review of records from [facility]. See scanned into media Major depression, recurrent 10/16/2017 Overview (01/10/2019): H/o suicide attempts. H/o cutting. Bicornuate uterus 12/06/2015 Overview (01/10/2019): Septate uterus PCOS (polycystic ovarian syndrome) 12/06/2015 Resolved Problems Problem Noted Date Diagnosed Date Resolved Date Cervical high risk HPV (angeline n papillomavirus) test positive 10/20/2019 10/12/2023 Overview (10/12/2023): [facility] Review: History: 2019: NILM HPV+ (non 16/18) [...] Department Care Team Description 04/22/2024 4:00 PM CASING TESTER Telemedicine [place] [id number] [place] [address] Claudine Woodard MD Moderate episode [...] 11/08/1995, 2,05/13/1990,1989 Influenza IIV4 (Quadrivalent ) 0.5mL (36373) 11/13/2019,01/10/2019 MMR 11/05/2002,05/16/1991 Moderna Bivalent 12+ 09/18/2022 Moderna Monovalent Booster 12+ 08/26/2021 PCV20 ([id number]) 09/18/2022 PPSV23 (Pneumovax) 01/10/2019 Pfizer Monovalent 12+ Purple Top 07/22/2020,06/04 Td 09/30/2002 Td (7+ yrs) 09/30/2002 Tdap 09/13/2015, 3,11/08/1995,1993,05/16/1991,05/13/1990,1989 Family History Medical History Relation Name Comments Other Father was [facility] [employer] police coxswain with issues Depression Mother Cori Olivo Both [...] PM CDT Telemedicine [facility] [address] [place] [address] Claudine Woodard MD [address] [place] [address] Health Maintenance Due Date Last Done Comments [...] ANTIBODY, WITH REFLEX Routine 04/05/2023 11:40 AM CASING TESTER Need for hepatitis C screening test HIV 1/2 AG/AB 4TH GEN Routine 10/06/2019 1:53 PM CDT Screening for HIV (human immunodeficiency virus) from Last 3 Months or Most Recently Relevant to Health Maintenance Results * HPV Genotyping PCR (Cervical/Endocervical ONLY) (09/10/2023 9:58 AM CDT) Pathologist [facility] HPV High Risk Type 16 PCR Not Detected Not detected 10/11/2023 3:54 PM CDT [facility] HPV High Risk Type 18 PCR Not Detected Not Detected 10/11/2023 3:54 PM CDT [facility] HPV High Risk Other Than 16/18 Not Detected Not detected 10/11/2023 3:54 PM CDT [facility] Cervical Broom ENTIRE ENDOCERVIX / Unknown 09/10/2023 9:58 AM CDT 09/10/2023 10:19 AM CDT Claudine Woodard MD LAB_1 Final Resul t Performing Organization Address [facility] Co de Phone Number [address] * Hepatitis C Antibody, with Reflex (04/05/2023 11:40 AM CASING TESTER) Pathologist [facility] Hepatitis C Antibody Negative (Non Reactive) Negative (Non Reactive) 04/05/2023 4:38 PM CASING TESTER [facility] Comment:Antibodies to HCV no t detected. Does not exclude the possiblity of exposure to HCV. Blood Venipuncture / Unknown 04/05/2023 11:40 AM CASING TESTER 04/05/2023 11:40 AM CASING TESTER us Claudine Woodard MD LAB_1 Final Resul t [facility] [address] [place] [id number] * HIV 1/2 Ag/Ab 4th Generation (10/06/2019 1:53 PM CDT) Pathologist [facility] HIV 1/2 Antigen/Antib analy (4th generation) Negative (Non Reactive) Negative (Non Reactive) 10/06/2019 6:36 PM CDT [facility] Comment:HIV-1 p24 Antigen an d HIV-1/HIV-2 Antibody not detected Blood Venipuncture / Unknown 10/06/2019 1:53 PM CDT 10/06/2019 1:53 PM CDT us Claudine Woodard MD LAB_1 Final Resul t [facility] [address] [place] [address], [facility] from Last 3 Months or Most Recently Relevant to Health Maintenance Insurance SELF INSURED SELF INSURED [employer] Advance Directives * Full Code (Latest Code Status on File) Date Activated Date Inactivated Comments 12/06/2015 8:35 AM 12/08/2015 4:52 PM Care Teams Lawn Maintenance Worker Relationship Specialty Start Date End Date Claudine Woodard MD [address] [place] [address] PCP - General Family Practice 01/06/19
--- OUTSIDE RECORDS SUMMARY | 2024-07-13 14:49 | XMS_ITS | Encounter Summary ---
Author Organization [employer] Address [address] [place] [address] Care Team Providers Care Carton Forming Machine Helper Name Role Phone Claudine Woodard MD Primary Care Provider [phone] Encounter Details Date Type Department Care Team (Late st Contact Info) Description 12/08/2015 Correspondence None No Primary/Referring, Phy HME EQUIPMENT COMBINER TICKET Social History Tobacco Use Types Packs/Day [...] Info) Description 07/29/2024 5:30 PM CDT Telemedicine [facility] [place] [address] Claudine Woodard MD [facility] [place] [address] documented as of this encounter Visit Diagnoses Not on filedocumented in this encounter Care Teams Carton Forming Machine Helper Relationship Specialty Start Date End Date Claudine Woodard MD [address] [place] [address] PCP - General Family Practice 01/06/19 documented as of this encounter
[2024-07-13 15:32] LABS: Acetaminophen* < 10.0 ug/mL (10.0-30.0); Ethanol* < 0.01 % (0.01-0.03); Salicylate* < 1.0 mg/dL (1.0-10)
[2024-07-13 15:36] LABS: HCG Qualitative Serum* Negative (Negative)
[2024-07-14 06:13] VITALS: BP 118/81; PULSE 85; RESP 22; TEMP 36.8; O2SAT 98
[2024-07-14] MEDS: NICOTINE 14 mg PATCH 1 PATCH TRANSDERMA (07:11)
== END 2024-07-14 07:26 ==
PROVIDERS: Emergency Provider Student in an Organized Health Care Education/Training Program; PCP Physician Assistant Medical
DX: F32.A Depression, unspecified (principal); F22 Delusional disorders
CPT/HCPCS: 36415; 80048; 80143; 80179; 80306; 81001; 82077; 84443; 84702; 84703; 85025; 87086; 87631; 87635; 99284; Q3014; S4990

== ENCOUNTER 2024-07-14 07:20 | Outpatient (CLI) | payer MEDICAID, SELFPAY | END 2024-07-14 07:21 | disposition home or self-care (01) | PROVIDERS: PCP Physician Assistant Medical; Visit Provider Family Medicine | DX: F22 Delusional disorders (principal); F32.A Depression, unspecified | CPT/HCPCS: A0425; A0428 ==